=== PATIENT | male | born 2000 | race American Indian/Alaskan Native ===

== ENCOUNTER 2022-02-26 16:05 | Inpatient (IN) | payer MEDICAID ==
[2022-02-26] MEDS ORDERED: SODIUM CHLORIDE 0.9% 1000 ML 1,000 ML IV ONE ×2 (17:28→18:35)
--- NOTE | 2022-02-26 17:47 | Emergency Department Report ---
ED General Adult HPI - General Chief complaint: Nausea/Vomiting/Diarrhea Stated complaint: AMS Time Seen by Provider: 02/26/22 17:19 Source: EMS Mode of arrival: Ambulatory Limitations: No Limitations - History of Present Illness Initial comments: Patient is a 21-year-old male with reported history of schizophrenia who presents emergency department with confusion after being found wandering around. Patient is awake alert oriented x4. He does not appear to have any evidence of trauma. Patient is unable to give any additional information. - Related Data Allergies Allergy/AdvReac Type Severity Reaction Status Date / Time No Known Allergies Allergy Unverified 02/26/22 17:07 ED Review of Systems ROS: Stated complaint: AMS Other details as noted in HPI Comment: Unobtainable due to pts medical conditions ED Physical Exam - General Limitations: No Limitations General appearance: alert, in no apparent distress - Head Head exam: Present: atraumatic, normocephalic - Eye Eye exam: Present: normal appearance - ENT ENT exam: Present: mucous membranes moist - Neck Neck exam: Present: normal inspection - Respiratory Respiratory exam: Present: normal lung sounds bilaterally. Absent: respiratory distress - Cardiovascular Cardiovascular Exam: Present: regular rate, normal rhythm. Absent: systolic murmur, diastolic murmur, rubs, gallop - GI/Abdominal GI/Abdominal exam: Present: soft, normal bowel sounds - Rectal Rectal exam: Present: deferred - Extremities Exam Extremities exam: Present: normal inspection - Back Exam Back exam: Present: normal inspection - Neurological Exam Neurological exam: Present: alert, oriented X3, CN II-XII intact, normal gait. Absent: motor sensory deficit - Psychiatric Psychiatric exam: Present: flat affect. Absent: agitated, anxious, manic, homicidal ideation, suicidal ideation - Skin Skin exam: Present: warm, dry, intact, normal color. Absent: rash ED Course Vital Signs 02/26/22 02/26/22 02/26/22 16:43 18:31 21:17 Temperature 98.5 F Pulse Rate 83 79 Respiratory 18 18 15 Rate Blood Pressure 106/76 110/70 [Left] O2 Sat by Pulse 99 99 100 Oximetry - Reevaluation(s) Reevaluation #1: 02/26/22 19:28 Patient is reacting to external stimuli. He is talking to himself. He is attempted to remove his IV. I informed the nurse that we need to call security and I have ordered chemical sedation for the patient to facilitate the rest of his work-up. Reevaluation #2: 02/26/22 22:56 Patient was admitted to the hospitalist on a 1013 given evidence of rhabdo. Patient has been calm since receiving sedation. His CK appears to be trending Down but is still elevated above 2000. ED Medical Decision Making - Lab Data Result diagrams: 02/26/22 17:28 02/26/22 17:28 - Medical Decision Making Patient is a 21-year-old male presenting to the emergency department after being found wandering. Patient appears disheveled he is awake alert and oriented with no sign of trauma but cannot give additional information as to why he is here. There is reportedly history of schizophrenia. Plan for CT head, basic labs, IV fluids and reassessment. Critical care attestation.: If time is entered above; I have spent that time in minutes in the direct care of this critically ill patient, excluding procedure time. ED Disposition Clinical Impression: Rhabdomyolysis, Schizophrenia Disposition: ADMITTED INPATIENT Is pt being admited?: Yes Does the pt Need Aspirin: No Condition: Stable Referrals: PRIMARY CARE, [Primary Care Provider] - 3-5 Days
[2022-02-26 17:59] LABS: Basophils % (Auto) 0.4 % (0.0-1.8); Eosinophils # (Auto) 0.3 K/mm3 (0.0-0.4); Eosinophils % (Auto) 3.4 % (0.0-4.3); Hematocrit 38.1 % (35.5-45.6); Lymphocytes # (Auto) 2.2 K/mm3 (1.2-5.4); Lymphocytes % (Auto) 21.7 % (13.4-35.0); Mean Corpuscular HGB Conc 34 % (32-34); Mean Corpuscular Volume 92 fl (84-94); Monocytes # (Auto) 1.1 K/mm3 (0.0-0.8); Monocytes % (Auto) 10.8 % (0.0-7.3); Platelet Count 284 K/mm3 (140-440); Red Blood Count 4.15 M/mm3 (3.65-5.03); Red Cell Distribution Width 13.2 % (13.2-15.2)
[2022-02-26 18:03] LABS: Alanine Aminotransferase 92 units/L (7-56); Albumin 4.1 g/dL (3.9-5); BUN/Creatinine Ratio 21; Blood Urea Nitrogen 19 mg/dL (9-20); Calcium 8.9 mg/dL (8.4-10.2); Hemolysis Index 12
[2022-02-26] MEDS ORDERED: HALOPERIDOL LACTATE 5 MG/1 ML INJ IM ONE (19:27)
[2022-02-26] MEDS ORDERED: diphenhydrAMINE 50 MG/ML VIAL IV ONE (19:27)
[2022-02-26] MEDS ORDERED: MIDAZOLAM 2 MG/2 ML INJ IV ONE (19:27)
--- NOTE | 2022-02-26 20:31 | Cat Scan Report ---
CT head/brain wo con INDICATION / CLINICAL INFORMATION: 21 years Male; altered mental status. TECHNIQUE: Routine CT head without contrast. All CT scans at this location are performed using CT dos e reduction for ALARA by means of automated exposure control. COMPARISON: None. FINDINGS: BRAIN / INTRACRANIAL CONTENTS: No acute hemorrhage, mass effect, midline shift, hydrocephalus, or acu te, large territorial infarct. No signs of significant atrophy or chronic infarct. No significant whi te matter abnormality seen. CRANIOCERVICAL JUNCTION: No significant abnormality. ORBITS: No significant abnormality of visualized orbits. SINUSES / MASTOIDS: Mild to moderate mucosal thickening in the ethmoids. Small mucous extension cysts /polyps seen in the right sphenoid sinus and right maxillary antrum. Minimal mucosal thickening in th e mastoids. ADDITIONAL FINDINGS: None. IMPRESSION: 1. No focal mass, hemorrhage, hydrocephalus, or acute, large territorial infarct. Signer Name: Fausto Lee MD, III Signed: 02/26/2022 8:27 PM Workstation Name: [id number]
[2022-02-26] MEDS ORDERED: ACETAMINOPHEN 325 MG TAB PO PRN (22:16)
[2022-02-26] MEDS ORDERED: ONDANSETRON 4 MG/2 ML INJ IV PRN (22:16)
[2022-02-26] MEDS ORDERED: MAGNESIUM HYDROXIDE (MOM) ORAL LIQD UDC PO PRN (22:16)
[2022-02-26] MEDS ORDERED: MORPHINE 4 MG/1 ML INJ IV PRN (22:16)
--- NOTE | 2022-02-26 22:22 | History and Physical Report ---
History of Present Illness Date of examination: 02/26/22 Date of admission: 02/26/2022 Chief complaint: Altered Mental Status History of present illness: 21-year-old -[place] male with known history of schizophrenia presenting to the emergency room today with changes in mental status. Currently sedated. Said to have been found wandering around was brought into the emergency room for further evaluation. Upon arrival in the emergency room he became agitated and was given some sedation. The history was gotten from the ER staff Work-up in the emergency room today, labs are significant for elevated creatinine kinase of 2654. Liver enzymes were also slightly elevated. CT scan of the head shows no focal mass, hemorrhage, hydrocephalus or acute large territorial infarct. Patient has been started on IV fluid normal saline Past History Past Medical History: other (Schizophrenia) Past Surgical History: No surgical history Social history: no significant social history Family history: no significant family history Medications and Allergies Allergies Allergy/AdvReac Type Severity Reaction Status Date / Time No Known Allergies Allergy Unverified 02/26/22 17:07 Review of Systems ROS unobtainable: due to mental status Exam - Constitutional Vitals: Temp Pulse Resp BP Pulse Ox 98.5 F 79 15 110/70 100 02/26/22 16:43 02/26/22 21:17 02/26/22 21:17 02/26/22 21:17 02/26/22 21:17 General appearance: Present: no acute distress, well-nourished - EENT Eyes: Present: PERRL, EOM intact. Absent: scleral icterus ENT: hearing intact, clear oral mucosa, dentition normal - Neck Neck: Present: supple, normal ROM - Respiratory Respiratory effort: normal Respiratory: bilateral: CTA - Cardiovascular Rhythm: regular Heart Sounds: Present: S1 & S2. Absent: gallop, systolic murmur, diastolic murmur, rub, click - Extremities Extremities: no ischemia, pulses intact, pulses symmetrical, No edema, normal temperature, normal color, Full ROM Peripheral Pulses: within normal limits - Abdominal General gastrointestinal: Present: soft, non-tender, non-distended, normal bowel sounds. Absent: mass - Integumentary Integumentary: Present: clear, warm, dry, normal turgor. Absent: rash - Musculoskeletal Musculoskeletal: strength equal bilaterally - Psychiatric Psychiatric: cooperative - Neurologic Neurologic: CNII-XII intact, no focal deficits, moves all extremities Results - Labs CBC & Chem 7: 02/27/22 04:12 02/27/22 04:12 Labs: Abnormal lab results 02/26/22 02/26/22 02/26/22 Range/Units 17:28 17:28 17:28 [place] % (Auto) 10.8 H (0.0-7.3) % [place] # (Auto) 1.1 H (0.0-0.8) K/mm3 Sodium 136 L (137-145) mmol/L AST 79 H (5-40) units/L ALT 92 H (7-56) units/L Total Creatine Kinase (55-170) units/L Salicylates < 0.3 L (2.8-20.0) mg/dL Acetaminophen (10.0-30.0) ug/mL 02/26/22 02/26/22 02/26/22 Range/Units 17:31 17:31 17:31 [place] % (Auto) (0.0-7.3) % [place] # (Auto) (0.0-0.8) K/mm3 Sodium (137-145) mmol/L AST (5-40) units/L ALT (7-56) units/L Total Creatine Kinase 2654 H (55-170) units/L Salicylates < 0.3 L (2.8-20.0) mg/dL Acetaminophen 5.0 L (10.0-30.0) ug/mL 02/26/22 Range/Units 20:22 [place] % (Auto) (0.0-7.3) % [place] # (Auto) (0.0-0.8) K/mm3 Sodium (137-145) mmol/L AST (5-40) units/L ALT (7-56) units/L Total Creatine Kinase 2230 H (55-170) units/L Salicylates (2.8-20.0) mg/dL Acetaminophen (10.0-30.0) ug/mL Assessment and Plan - Patient Problems (1) Rhabdomyolysis Current Visit: Yes Status: Acute (2) Schizophrenia Current Visit: Yes Status: Acute (3) DVT prophylaxis Current Visit: Yes Status: Acute (4) Full code status Current Visit: Yes Status: Acute
[2022-02-27 04:32] LABS: Basophils % (Auto) 0.3 % (0.0-1.8); Eosinophils # (Auto) 0.4 K/mm3 (0.0-0.4); Eosinophils % (Auto) 4.8 % (0.0-4.3); Hemoglobin 13.4 gm/dl (11.8-15.2); Lymphocytes # (Auto) 2.1 K/mm3 (1.2-5.4); Lymphocytes % (Auto) 25.8 % (13.4-35.0); Mean Corpuscular HGB Conc 33 % (32-34); Mean Corpuscular Volume 91 fl (84-94); Monocytes # (Auto) 0.9 K/mm3 (0.0-0.8); Monocytes % (Auto) 11.1 % (0.0-7.3); Platelet Count 281 K/mm3 (140-440); Red Blood Count 4.42 M/mm3 (3.65-5.03); Red Cell Distribution Width 13.3 % (13.2-15.2)
[2022-02-27 04:51] LABS: BUN/Creatinine Ratio 16; Blood Urea Nitrogen 14 mg/dL (9-20); Calcium 8.5 mg/dL (8.4-10.2); Hemolysis Index 10
[2022-02-27] MEDS: HEPARIN 5,000 UNIT/1 ML VIAL SUB-Q SCH ×3 (10:40→21:41)
--- NOTE | 2022-02-27 12:14 | Consultation ---
History of Present Illness - Reason for Consult Consult date: 02/27/22 Reason for consult: MHE Requesting physician: DAVE CROWDER - Chief Complaint Chief complaint: "I got to get out of here" - History of Present Psychiatric Illness HPI: The patient is a 21yo Male. Patient seen today and states he was admitted because he fell and states " i got to get out of here" Patient was seen talking to himself. atient denies any SI/HI at this time. Patient has hx of schizophrenia. PAST PSYCHIATRIC HISTORY: Diagnoses: schizophrenia Suicide attempts or Self-harm behavior: No Prior psychiatric hospitalizations: Yes Substance Abuse history: Unable to assess Previous psychiatric medications tried: Outpatient treatment: PAST MEDICAL HISTORY: Family Psychiatric History: None reported or documented SOCIAL HISTORY Marital Status: Single Living Arrangements: Homeless Employment Status: Access to guns/weapons: No Education: History of Abuse: unable to asses Legal History: Denies REVIEW OF SYSTEMS ROS cannot be reliably obtained from the patient due to his confusion ROS: Constitutional: Negative for weight loss ENT: Negative for stridor Respiratory: Negative for cough or hemoptysis All other systems reviewed and are negative MENTAL STATUS General Appearance and Behavior: age appropriate, cooperative with questioning and polite Cooperation: Cooperative Psychomotor Behavior: within normal limits Mood: OK Affect and affective range: Congruent with stated mood Thought Process: Fluent Thought Content: Within reality Speech: Normal volume and Regular rate and rhythm Intellectual Functioning Average Suicidal Ideation: Denies SI Homicidal Ideation: Denies HI Impulse Control: intact Insight and Judgment: poor Memory: poor Attention: Normal Orientation: alert Treatment Plan Patient will be admitted for inpatient psychiatric evaluation, medication adjustment and close monitoring The patient's behavior, mood, sleep and appetite will be closely monitored. Patient will be enrolled in individual and group therapeutic sessions and encouraged to attend. Patient will be provided with a safe and structured environment. Patient's physical health needs will be addressed by the Hospitalist. Hospitalist Consulted Labs including CBC, CMP, Lipid profile and Hemoglobin A1C ordered Social Assessment will be completed and the Manager Molecular will work with patient and family to ensure a suitable and safe disposition Medication adjustment will be made as clinically indicated Usual Wellness Congregational/Preservation: - Start Trazodone 50 mg po QHS & 50 mg po QHS PRN between 10 PM & 2 AM for insomnia Medications and Allergies Allergies Allergy/AdvReac Type Severity Reaction Status Date / Time No Known Allergies Allergy Unverified 02/26/22 17:07 Home Medications Medication Instructions Recorded Confirmed Last Taken Type No Known Home Medications [No 02/27/22 02/27/22 Unknown History Reported Home Medications] Active Meds: Active Medications Acetaminophen (Acetaminophen 325 Mg Tab) 650 mg PO Q4H PRN PRN Reason: Pain MILD(1-3)/Fever >100.5/MI Heparin Sodium (Porcine) (Heparin 5,000 Unit/1 Ml Vial) 5,000 unit SUB-Q Q8HR [facility] Last Admin: 02/27/22 10:40 Dose: Not Given Sodium Chloride (Nacl 0.9% 1000 Ml) 1,000 mls @ 150 mls/hr IV DIRECT LUCILA Magnesium Hydroxide (Magnesium Hydroxide (Mom) Oral Liqd Udc) 30 ml PO Q4H PRN PRN Reason: Constipation Morphine Sulfate (Morphine 2 Mg/1 Ml Inj) 2 mg IV Q4H PRN PRN Reason: Pain, Moderate (4-6) Morphine Sulfate (Morphine 4 Mg/1 Ml Inj) 4 mg IV Q4H PRN PRN Reason: Pain , Severe (7-10) Olanzapine (Olanzapine 5 Mg Tab) 5 mg PO BID [facility] Ondansetron HCl (Ondansetron 4 Mg/2 Ml Inj) 4 mg IV Q8H PRN PRN Reason: Nausea And Vomiting Sodium Chloride (Sodium Chloride 0.9% 10 Ml Flush Syringe) 10 ml IV BID [facility] Last Admin: 02/27/22 09:57 Dose: 10 ml Sodium Chloride (Sodium Chloride 0.9% 10 Ml Flush Syringe) 10 ml IV PRN PRN PRN Reason: LINE FLUSH Ziprasidone (Ziprasidone Mesylate 20 Mg Vial) 20 mg IM Q4H PRN PRN Reason: Agitation Mental Status Exam - Vital signs Last Vital Signs Temp 98.5 F 02/26/22 16:43 Pulse 76 02/27/22 00:42 Resp 12 02/27/22 00:42 BP 116/66 02/27/22 00:42 Pulse Ox 98 02/27/22 10:56 Results Result Diagrams: 02/27/22 04:12 02/27/22 04:12 Abnormal lab results 02/26/22 02/26/22 02/26/22 Range/Units 17:28 17:28 17:28 [place] % (Auto) 10.8 H (0.0-7.3) % [place] % (Auto) (0.0-4.3) % [place] # (Auto) 1.1 H (0.0-0.8) K/mm3 Sodium 136 L (137-145) mmol/L AST 79 H (5-40) units/L ALT 92 H (7-56) units/L Total Creatine Kinase (55-170) units/L Salicylates < 0.3 L (2.8-20.0) mg/dL Acetaminophen (10.0-30.0) ug/mL 02/26/22 02/26/22 02/26/22 Range/Units 17:31 17:31 17:31 [place] % (Auto) (0.0-7.3) % [place] % (Auto) (0.0-4.3) % [place] # (Auto) (0.0-0.8) K/mm3 Sodium (137-145) mmol/L AST (5-40) units/L ALT (7-56) units/L Total Creatine Kinase 2654 H (55-170) units/L Salicylates < 0.3 L (2.8-20.0) mg/dL Acetaminophen 5.0 L (10.0-30.0) ug/mL 02/26/22 02/27/22 02/27/22 Range/Units 20:22 04:12 04:58 [place] % (Auto) 11.1 H (0.0-7.3) % [place] % (Auto) 4.8 H (0.0-4.3) % [place] # (Auto) 0.9 H (0.0-0.8) K/mm3 Sodium (137-145) mmol/L AST (5-40) units/L ALT (7-56) units/L Total Creatine Kinase 2230 H 1925 H (55-170) units/L Salicylates (2.8-20.0) mg/dL Acetaminophen (10.0-30.0) ug/mL All other labs normal. Assessment and Plan - Psychiatric problem (1) Psychosis Current Visit: Yes Status: Acute (2) Schizophrenia Current Visit: Yes Status: Acute
[2022-02-27] MEDS: SODIUM CHLORIDE 0.9% 1000 ML 1,000 ML IV SCH ×2 (12:18→21:38)
[2022-02-27 13:04] LABS: Amphetamine Screen,Urine Negative; Cannabinoid Screen,Urine Negative; Cocaine Screen,Urine Negative; Methadone Screen,Urine Negative; Opiate Screen,Urine Negative
[2022-02-27 13:17] LABS: Benzodiazepines Screen,Urine Positive
[2022-02-27] MEDS ORDERED: LORazepam 2 MG/ML VIAL IM ONE (13:46)
[2022-02-27] MEDS ORDERED: HALOPERIDOL LACTATE 5 MG/1 ML INJ IM ONE (13:46)
--- NOTE | 2022-02-27 13:53 | Progress Note ---
Assessment and Plan (1) Rhabdomyolysis Current Visit: Yes Status: Acute (2) Schizophrenia Current Visit: Yes Status: Acute (3) DVT prophylaxis Current Visit: Yes Status: Acute (4) Full code status Current Visit: Yes Status: Acute -- Follow CPK level, encourage plenty of fluid intake, sitting at the bedside. Psych following, need inpatient care for psychiatric evaluation Subjective Date of service: 02/27/22 Interval history: Patient seen and examined. Medical records and medication list reviewed. No acute event overnight noted by the RN. Patient denies any chest pain or difficulty breathing. Patient is tolerating diet. Sitter at the bedside Patient is very talkative Objective - Exam Narrative Exam: GENERAL: well-developed and well-nourished AAM lying on bed appeared to be in no discomfort. Sitter at the bedside HEENT: Normocephalic. Atraumatic. No conjunctival congestion or icterus. Patient has moist mucous membranes. NECK: Supple. Trachea midline. CHEST/LUNGS: Clear to auscultated bilaterally, breathing nonlabored. No wheezes crackles or rhonchi. HEART/CARDIOVASCULAR: Regular in rate and rhythm. S1 and S2 positive. ABDOMEN: Abdomen is soft, nontender. Patient has normal bowel sounds. SKIN: There is no rash. Warm and dry. NEURO: No focal motor deficit. Follows command. MUSCULOSKELETAL: No joint effusion or tenderness. EXTRIMITY: No edema, no cyanosis or clubbing. PSYCH: Cooperative with disorganized thoughts. Intermittently agitated - Constitutional Vitals: Vital Signs - 12hr 02/27/22 02/27/22 10:56 11:57 Temperature 97.9 F Pulse Rate 68 Respiratory 20 Rate Blood Pressure 100/44 O2 Sat by Pulse 98 99 Oximetry - Labs CBC & Chem 7: 02/27/22 04:12 02/27/22 04:12 Labs: Abnormal lab results 02/26/22 02/26/22 02/26/22 Range/Units 17:28 17:28 17:28 [place] % (Auto) 10.8 H (0.0-7.3) % [place] % (Auto) (0.0-4.3) % [place] # (Auto) 1.1 H (0.0-0.8) K/mm3 Sodium 136 L (137-145) mmol/L AST 79 H (5-40) units/L ALT 92 H (7-56) units/L Total Creatine Kinase (55-170) units/L Salicylates < 0.3 L (2.8-20.0) mg/dL Acetaminophen (10.0-30.0) ug/mL 02/26/22 02/26/22 02/26/22 Range/Units 17:31 17:31 17:31 [place] % (Auto) (0.0-7.3) % [place] % (Auto) (0.0-4.3) % [place] # (Auto) (0.0-0.8) K/mm3 Sodium (137-145) mmol/L AST (5-40) units/L ALT (7-56) units/L Total Creatine Kinase 2654 H (55-170) units/L Salicylates < 0.3 L (2.8-20.0) mg/dL Acetaminophen 5.0 L (10.0-30.0) ug/mL 02/26/22 02/27/22 02/27/22 Range/Units 20:22 04:12 04:58 [place] % (Auto) 11.1 H (0.0-7.3) % [place] % (Auto) 4.8 H (0.0-4.3) % [place] # (Auto) 0.9 H (0.0-0.8) K/mm3 Sodium (137-145) mmol/L AST (5-40) units/L ALT (7-56) units/L Total Creatine Kinase 2230 H 1925 H (55-170) units/L Salicylates (2.8-20.0) mg/dL Acetaminophen (10.0-30.0) ug/mL
[2022-02-27 15:23] LABS: Mucus,Urine FEW /HPF
[2022-02-27 15:50] LABS: Bilirubin,Urine Negative (Negative); Blood,Urine Negative (Negative); Color,Urine Yellow (Yellow); PH,Urine 6.5 (5.0-7.0); Protein,Urine <15 mg/dL mg/dL (Negative); Urobilinogen,Urine < 2.0 mg/dL (<2.0)
[2022-02-27] MEDS: LORazepam 2 MG/ML VIAL IM PRN (21:42)
[2022-02-28] MEDS: HEPARIN 5,000 UNIT/1 ML VIAL SUB-Q SCH ×3 (06:22→22:02)
[2022-02-28] MEDS: LORazepam 2 MG/ML VIAL IM PRN ×2 (08:48→18:10)
--- NOTE | 2022-02-28 16:31 | Progress Note ---
Assessment and Plan (1) Rhabdomyolysis Current Visit: Yes Status: Acute (2) Schizophrenia Current Visit: Yes Status: Acute (3) DVT prophylaxis Current Visit: Yes Status: Acute (4) Full code status Current Visit: Yes Status: Acute -- CPK remains elevated, cont to follow, iv fluid. patient refusing meds per documentation. need inpt care. with disorganized thoughts, very talkative. cont supportive care. sitter at bedside. Subjective Date of service: 02/28/22 Interval history: Patient seen and examined. Medical records and medication list reviewed. No acute event overnight noted by the RN. Patient denies any chest pain or difficulty breathing. Patient is tolerating diet. Sitter at the bedside Patient is very talkative Objective - Exam Narrative Exam: GENERAL: well-developed and well-nourished AAM lying on bed appeared to be in no discomfort. Sitter at the bedside HEENT: Normocephalic. Atraumatic. No conjunctival congestion or icterus. Patient has moist mucous membranes. NECK: Supple. Trachea midline. CHEST/LUNGS: Clear to auscultated bilaterally, breathing nonlabored. No wheezes crackles or rhonchi. HEART/CARDIOVASCULAR: Regular in rate and rhythm. S1 and S2 positive. ABDOMEN: Abdomen is soft, nontender. Patient has normal bowel sounds. SKIN: There is no rash. Warm and dry. NEURO: No focal motor deficit. Follows command. MUSCULOSKELETAL: No joint effusion or tenderness. EXTRIMITY: No edema, no cyanosis or clubbing. PSYCH: Cooperative with disorganized thoughts. Intermittently agitated - Constitutional Vitals: Vital Signs - 12hr 02/28/22 02/28/22 08:50 11:07 Temperature 98.6 F Respiratory 20 Rate Blood Pressure 110/55 O2 Sat by Pulse 97 Oximetry - Labs CBC & Chem 7: 02/27/22 04:12 02/27/22 04:12 Labs: Abnormal lab results 02/28/22 Range/Units 05:59 Total Creatine Kinase 2283 H (55-170) units/L
[2022-02-28] MEDS: HALOPERIDOL LACTATE 5 MG/1 ML INJ IM PRN (18:08)
--- NOTE | 2022-02-28 19:55 | Progress Note ---
Subjective - Reason for Consult Reason for consult: Schizophrenia - Chief Complaint Chief complaint: "I got to get out of here" SUBJECTIVE DATE SEEN: 02/28/2022 Patient seen toda. Patient lying on his bed eating. Patient states that he is feeling okay today, but refusing to take medications because he says the make him "crap a lot". Patient also took out his IV. Patient denies SI/HI at this time and states that he eats and sleeps well ad would like to leave.No changes to plan of care at this time. Mental Status Exam - Vital signs Last Vital Signs Temp 98.7 F 02/28/22 18:30 Pulse 63 02/28/22 18:30 Resp 20 02/28/22 18:30 BP 116/62 02/28/22 18:30 Pulse Ox 98 02/28/22 18:30 Assessment and Plan - Patient Problems (1) Psychosis Current Visit: Yes Status: Acute (2) Schizophrenia Current Visit: Yes Status: Acute
[2022-03-01] MEDS: LORazepam 2 MG/ML VIAL IM PRN ×3 (03:33→21:30)
[2022-03-01] MEDS: HALOPERIDOL LACTATE 5 MG/1 ML INJ IM PRN ×3 (03:33→21:30)
[2022-03-01] MEDS: HEPARIN 5,000 UNIT/1 ML VIAL SUB-Q SCH ×3 (06:40→21:26)
--- NOTE | 2022-03-01 12:57 | Progress Note ---
Assessment and Plan (1) Rhabdomyolysis Current Visit: Yes Status: Acute (2) Schizophrenia Current Visit: Yes Status: Acute (3) DVT prophylaxis Current Visit: Yes Status: Acute (4) Full code status Current Visit: Yes Status: Acute -- Patient requiring inpatient psych evaluation and management. Sitter at the bedside. Follow CPK level and wait for psych clearance for discharge. Subjective Date of service: 03/01/22 Interval history: Patient seen and examined. Medical records and medication list reviewed. No acute event overnight noted by the RN. Patient denies any chest pain or difficulty breathing. Patient is tolerating diet. Sitter at the bedside Patient is very talkative Objective - Exam Narrative Exam: GENERAL: well-developed and well-nourished AAM lying on bed appeared to be in no discomfort. Sitter at the bedside HEENT: Normocephalic. Atraumatic. No conjunctival congestion or icterus. Patient has moist mucous membranes. NECK: Supple. Trachea midline. CHEST/LUNGS: Clear to auscultated bilaterally, breathing nonlabored. No wheezes crackles or rhonchi. HEART/CARDIOVASCULAR: Regular in rate and rhythm. S1 and S2 positive. ABDOMEN: Abdomen is soft, nontender. Patient has normal bowel sounds. SKIN: There is no rash. Warm and dry. NEURO: No focal motor deficit. Follows command. MUSCULOSKELETAL: No joint effusion or tenderness. EXTRIMITY: No edema, no cyanosis or clubbing. PSYCH: Cooperative with disorganized thoughts. Intermittently agitated - Constitutional Vitals: Vital Signs - 12hr 03/01/22 12:09 Temperature 97.6 F Pulse Rate 88 Respiratory 20 Rate Blood Pressure 102/56 O2 Sat by Pulse 99 Oximetry - Labs CBC & Chem 7: 02/27/22 04:12 02/27/22 04:12
[2022-03-02] MEDS: SODIUM CHLORIDE 0.9% 1000 ML 1,000 ML IV SCH ×3 (02:43→17:26)
[2022-03-02] MEDS: HEPARIN 5,000 UNIT/1 ML VIAL SUB-Q SCH ×3 (05:20→21:43)
[2022-03-02] MEDS: HALOPERIDOL LACTATE 5 MG/1 ML INJ IM PRN ×2 (07:55→17:19)
--- NOTE | 2022-03-02 13:50 | Progress Note ---
Assessment and Plan 21-year-old -[place] male with known history of schizophrenia presenting to the emergency room with changes in mental status. Upon arrival in the emergency room he became agitated and was given some sedation. Work-up in the emergency room, labs are significant for elevated creatinine kinase of 2654. Liver enzymes were also slightly elevated. CT scan of the head shows no focal mass, hemorrhage, hydrocephalus or acute large territorial infarct. Patient has been started on IV fluid normal saline and admitted for further mx. 02/27: -- Follow CPK level, encourage plenty of fluid intake, sitting at the bedside. Psych following, need inpatient care for psychiatric evaluation. 02/28: CPK remains elevated, cont to follow, iv fluid. patient refusing meds per documentation. need inpt care. with disorganized thoughts, very talkative. cont supportive care. sitter at bedside. 03/01: Patient requiring inpatient psych evaluation and management. Sitter at the bedside. Follow CPK level and wait for psych clearance for discharge. 03/02: CPK remians elevated, pt was agitated this am. psych following. follow CPK and LFT. A/p (1) Rhabdomyolysis with elevated LFT Current Visit: Yes Status: Acute iv fluid, monitor CPK and LFT (2) Schizophrenia with psychosis Current Visit: Yes Status: Acute psych following (3) DVT prophylaxis Current Visit: Yes Status: Acute SCD, ambulatory (4) Full code status Current Visit: Yes Status: Acute Subjective Date of service: 03/02/22 Interval history: Patient seen and examined. Medical records and medication list reviewed. No acute event overnight noted by the RN. Patient denies any chest pain or difficulty breathing. Patient is tolerating diet. Sitter at the bedside Patient is very talkative Objective - Exam Narrative Exam: GENERAL: well-developed and well-nourished AAM lying on bed appeared to be in no discomfort. Sitter at the bedside HEENT: Normocephalic. Atraumatic. No conjunctival congestion or icterus. Patient has moist mucous membranes. NECK: Supple. Trachea midline. CHEST/LUNGS: Clear to auscultated bilaterally, breathing nonlabored. No wheezes crackles or rhonchi. HEART/CARDIOVASCULAR: Regular in rate and rhythm. S1 and S2 positive. ABDOMEN: Abdomen is soft, nontender. Patient has normal bowel sounds. SKIN: There is no rash. Warm and dry. NEURO: No focal motor deficit. Follows command. MUSCULOSKELETAL: No joint effusion or tenderness. EXTRIMITY: No edema, no cyanosis or clubbing. PSYCH: Cooperative with disorganized thoughts. Intermittently agitated - Constitutional Vitals: Vital Signs - 12hr 03/02/22 03/02/22 03/02/22 02:29 02:30 04:51 Temperature 97.7 F 98.6 F Pulse Rate 56 L 52 L 86 Respiratory 16 14 20 Rate Blood Pressure 137/83 93/40 Blood Pressure 137/83 [Left] O2 Sat by Pulse 99 100 99 Oximetry 03/02/22 08:00 Temperature Pulse Rate Respiratory 16 Rate Blood Pressure Blood Pressure [Left] O2 Sat by Pulse 96 Oximetry - Labs CBC & Chem 7: 02/27/22 04:12 02/27/22 04:12 Labs: Abnormal lab results 03/02/22 03/02/22 Range/Units 02:28 09:39 POC Glucose 146 H (70-105) mg/dL Total Creatine Kinase 3625 H (55-170) units/L
--- NOTE | 2022-03-02 14:53 | Progress Note ---
Subjective - Reason for Consult Reason for consult: Schizophrenia - Chief Complaint Chief complaint: "I got to get out of here" SUBJECTIVE DATE SEEN: 03/02/2022 Patient seen today in his room with the sitter. Patient standing and talking with sitter. Patient observed to be in a good mood. Patient denies any SI/HI at this time. Nursing staff states that he is not disruptive or aggressive, but can get agitated and anxious at times. Patient has been compliant with his medications and also gets prn's when needed. Patients thoughts are disorganized. Patient states that he is eating and sleeping good. DATE SEEN: 02/28/2022 Patient seen toda. Patient lying on his bed eating. Patient states that he is feeling okay today, but refusing to take medications because he says the make him "crap a lot". Patient also took out his IV. Patient denies SI/HI at this time and states that he eats and sleeps well ad would like to leave.No changes to plan of care at this time. Mental Status Exam - Vital signs Last Vital Signs Temp 98.6 F 03/02/22 04:51 Pulse 86 03/02/22 04:51 Resp 16 03/02/22 08:00 BP 93/40 03/02/22 04:51 Pulse Ox 96 03/02/22 08:00 Assessment and Plan - Patient Problems (1) Psychosis Current Visit: Yes Status: Acute (2) Schizophrenia Current Visit: Yes Status: Acute
[2022-03-03] MEDS: HEPARIN 5,000 UNIT/1 ML VIAL SUB-Q SCH ×3 (06:04→22:19)
[2022-03-03] MEDS: HALOPERIDOL LACTATE 5 MG/1 ML INJ IM PRN (06:04)
[2022-03-03] MEDS: SODIUM CHLORIDE 0.9% 1000 ML 1,000 ML IV SCH ×3 (06:07→23:43)
[2022-03-03 08:47] LABS: Alanine Aminotransferase 279 units/L (7-56); Albumin 4.1 g/dL (3.9-5); Blood Urea Nitrogen 12 mg/dL (9-20); Hemolysis Index 5
[2022-03-03 09:06] LABS: BUN/Creatinine Ratio 17
--- NOTE | 2022-03-03 10:58 | Progress Note ---
Assessment and Plan Assessment and plan: A/p --Rhabdomyolysis worsening creatinine kinase, CK levels 3700 today Aggressive IV hydration, 250 mL of normal saline fluid bolus in addition to IV fluids Input output monitoring, plenty of oral fluids -- Worsening LFT; Due to worsening CK levels Vigorous IV hydration monitor LFTs, renal function And CK levels -- Schizophrenia with psychosis psych following . Continue current management Patient 1013 status per psych --DVT prophylaxis SCD, ambulatory -- Full code status We will closely monitor the patient and adjust the management as needed Plan of care reviewed with the patient and his nurse 21-year-old -[place] male with known history of schizophrenia presenting to the emergency room with changes in mental status. Upon arrival in the emergency room he became agitated and was given some sedation. Work-up in the emergency room, labs are significant for elevated creatinine kinase of 2654. Liver enzymes were also slightly elevated. CT scan of the head shows no focal mass, hemorrhage, hydrocephalus or acute large territorial infarct. Patient has been started on IV fluid normal saline and admitted for further mx. 02/27: -- Follow CPK level, encourage plenty of fluid intake, sitting at the bedside. Psych following, need inpatient care for psychiatric evaluation. 02/28: CPK remains elevated, cont to follow, iv fluid. patient refusing meds per documentation. need inpt care. with disorganized thoughts, very talkative. cont supportive care. sitter at bedside. 03/01: Patient requiring inpatient psych evaluation and management. Sitter at the bedside. Follow CPK level and wait for psych clearance for discharge. 03/02: CPK remians elevated, pt was agitated this am. psych following. follow CPK and LFT. 03/03; worsening CK and LFTs, increase IV fluids To 50 mL normal saline bolus in addition to IV fluids Resolved renal function History Interval history: I have seen and examined the patient at the bedside this morning Patient's chart and medications reviewed Patient with history of schizophrenia admitted with suicidal thoughts and ideation Evaluated by psych, 1013 status has worsening rhabdomyolysis CK today is 3700 Patient is anxious to go home. No new complaints Vital signs noted Hospitalist Physical - Constitutional Vitals: Temp Pulse Resp BP Pulse Ox 97.6 F 68 18 126/57 99 03/03/22 05:17 03/03/22 05:17 03/03/22 05:17 03/03/22 05:17 03/03/22 05:17 General appearance: Present: no acute distress, well-nourished - EENT Eyes: Present: PERRL, EOM intact - Neck Neck: Present: supple, normal ROM - Respiratory Respiratory effort: normal Respiratory: bilateral: diminished, negative: rales, rhonchi, wheezing - Cardiovascular Rhythm: regular Heart Sounds: Present: S1 & S2 - Extremities Extremities: no ischemia, No edema - Abdominal General gastrointestinal: soft, non-tender, non-distended, normal bowel sounds - Integumentary Integumentary: Present: clear, warm - Psychiatric Psychiatric: appropriate mood/affect, cooperative - Neurologic Neurologic: CNII-XII intact, moves all extremities Results - Labs CBC & Chem 7: 02/27/22 04:12 03/04/22 05:42 Labs: Laboratory Last Values WBC 8.3 K/mm3 (4.5-11.0) 02/27/22 04:12 RBC 4.42 M/mm3 (3.65-5.03) 02/27/22 04:12 Hgb 13.4 gm/dl (11.8-15.2) 02/27/22 04:12 Hct 40.0 % (35.5-45.6) 02/27/22 04:12 MCV 91 fl (84-94) 02/27/22 04:12 MCH 30 pg (28-32) 02/27/22 04:12 MCHC 33 % (32-34) 02/27/22 04:12 RDW 13.3 % (13.2-15.2) 02/27/22 04:12 Plt Count 281 K/mm3 (140-440) 02/27/22 04:12 Lymph % (Auto) 25.8 % (13.4-35.0) 02/27/22 04:12 [place] % (Auto) 11.1 % (0.0-7.3) H 02/27/22 04:12 Eos % (Auto) 4.8 % (0.0-4.3) H 02/27/22 04:12 Baso % (Auto) 0.3 % (0.0-1.8) 02/27/22 04:12 Lymph # (Auto) 2.1 K/mm3 (1.2-5.4) 02/27/22 04:12 [place] # (Auto) 0.9 K/mm3 (0.0-0.8) H 02/27/22 04:12 Eos # (Auto) 0.4 K/mm3 (0.0-0.4) 02/27/22 04:12 Baso # (Auto) 0.0 K/mm3 (0.0-0.1) 02/27/22 04:12 Seg Neutrophils % 58.0 % (40.0-70.0) 02/27/22 04:12 Seg Neutrophils # 4.8 K/mm3 (1.8-7.7) 02/27/22 04:12 Sodium 141 mmol/L (137-145) 03/03/22 07:15 Potassium 3.8 mmol/L (3.6-5.0) 03/03/22 07:15 Chloride 106.0 mmol/L (98-107) 03/03/22 07:15 Carbon Dioxide 24 mmol/L (22-30) 03/03/22 07:15 Anion Gap 15 mmol/L 03/03/22 07:15 BUN 12 mg/dL (9-20) 03/03/22 07:15 Creatinine 0.7 mg/dL (0.8-1.3) L 03/03/22 07:15 Estimated GFR > 60 ml/min 03/03/22 07:15 BUN/Creatinine Ratio 17 % 03/03/22 07:15 Glucose 83 mg/dL (75-100) 03/03/22 07:15 POC Glucose 146 mg/dL (70-105) H 03/02/22 02:28 Calcium 9.0 mg/dL (8.4-10.2) 03/03/22 07:15 Magnesium 1.70 mg/dL (1.7-2.3) 02/26/22 20:22 Total Bilirubin 0.20 mg/dL (0.1-1.2) 03/03/22 07:15 AST 361 units/L (5-40) H 03/03/22 07:15 ALT 279 units/L (7-56) H 03/03/22 07:15 Alkaline Phosphatase 67 units/L (35-129) 03/03/22 07:15 Total Creatine Kinase 3700 units/L (55-170) H 03/03/22 07:15 Total Protein 6.5 g/dL (6.3-8.2) 03/03/22 07:15 Albumin 4.1 g/dL (3.9-5) 03/03/22 07:15 Albumin/Globulin Ratio 1.7 % 03/03/22 07:15 Urine Color Yellow (Yellow) 02/26/22 12:19 Urine Turbidity Clear (Clear) 02/26/22 12:19 Urine pH 6.5 (5.0-7.0) 02/26/22 12:19 Ur Specific [place] 1.020 (1.003-1.030) 02/26/22 12:19 Urine Protein <15 mg/dl mg/dL (Negative) 02/26/22 12:19 Urine Glucose (UA) Negative mg/dL (Negative) 02/26/22 12:19 Urine Ketones Negative mg/dL (Negative) 02/26/22 12:19 Urine Blood Negative (Negative) 02/26/22 12:19 Urine Nitrite Negative (Negative) 02/26/22 12:19 Ur Reducing Substances Not Reportable 02/26/22 12:19 Urine Bilirubin Negative (Negative) 02/26/22 12:19 Urine Ictotest Not Reportable 02/26/22 12:19 Urine Urobilinogen < 2.0 mg/dL (<2.0) 02/26/22 12:19 Ur Leukocyte Esterase Negative (Negative) 02/26/22 12:19 Urine WBC (Auto) 3.0 /HPF (0.0-6.0) 02/26/22 12:19 Urine RBC (Auto) 1.0 /HPF (0.0-6.0) 02/26/22 12:19 U Epithel Cells (Auto) < 1.0 /HPF (0-13.0) 02/26/22 12:19 Urine Mucus Few /HPF 02/26/22 12:19 Nasal Screen MRSA (PCR) Negative (Negative) 02/27/22 Unknown Salicylates < 0.3 mg/dL (2.8-20.0) L 02/26/22 17:31 Urine Opiates Screen Negative 02/26/22 12:19 Urine Methadone Screen Negative 02/26/22 12:19 Acetaminophen 5.0 ug/mL (10.0-30.0) L 02/26/22 17:31 Ur Barbiturates Screen Negative 02/26/22 12:19 Ur Phencyclidine Scrn Negative 02/26/22 12:19 Ur Amphetamines Screen Negative 02/26/22 12:19 U Benzodiazepines Scrn Positive 02/26/22 12:19 Urine Cocaine Screen Negative 02/26/22 12:19 U Marijuana (THC) Screen Negative 02/26/22 12:19 Drugs of Abuse Note Disclamer 02/26/22 12:19 Plasma/Serum Alcohol < 0.01 % (0-0.07) 02/26/22 17:28 Coronavirus (PCR) Negative (Negative) 02/27/22 09:30 Vincent/IV: Voiding Method Toilet Active Medications - Current Medications Current Medications: Generic Name Dose Route Start Last Admin Trade Name Freq PRN Reason Stop Dose Admin Acetaminophen 650 mg 02/26/22 22:16 03/01/22 10:23 Acetaminophen 325 Mg Tab PO 650 mg Q4H PRN Administration Pain MILD(1-3)/Fever >100.5/MI Haloperidol Lactate 5 mg 02/27/22 13:50 03/03/22 06:04 Haloperidol Lactate 5 Mg/1 Ml Inj IM 5 mg Q6H PRN Administration Agitation Heparin Sodium (Porcine) 5,000 unit 02/27/22 06:00 03/03/22 06:04 Heparin 5,000 Unit/1 Ml Vial SUB-Q 5,000 unit Q8HR LUCILA Administration Sodium Chloride 1,000 mls @ 100 mls/hr 03/02/22 09:30 03/03/22 06:07 Nacl 0.9% 1000 Ml IV 100 mls/hr DIRECT LUCILA Administration Sodium Chloride 250 mls @ 999 mls/hr 03/03/22 10:56 Nacl 0.9% 250ml IV 03/03/22 11:11 ONCE ONE Lorazepam 2 mg 02/27/22 13:51 03/01/22 21:30 Lorazepam 2 Mg/Ml Vial IM 2 mg Q6H PRN Administration Agitation Magnesium Hydroxide 30 ml 02/26/22 22:16 03/01/22 21:30 Magnesium Hydroxide (Mom) Oral Liqd Udc PO 30 ml Q4H PRN Administration Constipation Morphine Sulfate 2 mg 02/26/22 22:16 Morphine 2 Mg/1 Ml Inj IV Q4H PRN Pain, Moderate (4-6) Morphine Sulfate 4 mg 02/26/22 22:16 Morphine 4 Mg/1 Ml Inj IV Q4H PRN Pain , Severe (7-10) Olanzapine 5 mg 02/27/22 13:00 03/03/22 10:18 Olanzapine 5 Mg Tab PO Not Given BID LUCILA Ondansetron HCl 4 mg 02/26/22 22:16 Ondansetron 4 Mg/2 Ml Inj IV Q8H PRN Nausea And Vomiting Sodium Chloride 10 ml 02/27/22 10:00 03/02/22 21:44 Sodium Chloride 0.9% 10 Ml Flush Syringe IV 10 ml BID LUCILA Administration Sodium Chloride 10 ml 02/26/22 22:16 Sodium Chloride 0.9% 10 Ml Flush Syringe IV PRN PRN LINE FLUSH Ziprasidone 20 mg 02/27/22 12:07 Ziprasidone Mesylate 20 Mg Vial IM Q4H PRN Agitation
[2022-03-03] MEDS ORDERED: SODIUM CHLORIDE 0.9% 250ML 250 ML IV ONE (12:00)
[2022-03-03] MEDS ORDERED: WATER FOR INJ Sterile (PF) 10 ML ONE (12:19)
[2022-03-03] MEDS: ZIPRASIDONE MESYLATE 20 MG VIAL IM PRN ×2 (12:32→22:18)
--- NOTE | 2022-03-03 17:38 | Progress Note ---
Subjective - Reason for Consult Consult date: 03/03/22 Reason for consult: MHE - Chief Complaint Chief complaint: "I got to get out of here" SUBJECTIVE DATE SEEN:03/03/2022 Patient seen today. Patient asleep. Nursing staff states that he got prn because of agitation. SUBJECTIVE DATE SEEN: 03/02/2022 Patient seen today in his room with the sitter. Patient standing and talking with sitter. Patient observed to be in a good mood. Patient denies any SI/HI at this time. Nursing staff states that he is not disruptive or aggressive, but can get agitated and anxious at times. Patient has been compliant with his medications and also gets prn's when needed. Patients thoughts are disorganized. Patient states that he is eating and sleeping good. DATE SEEN: 02/28/2022 Patient seen toda. Patient lying on his bed eating. Patient states that he is feeling okay today, but refusing to take medications because he says the make him "crap a lot". Patient also took out his IV. Patient denies SI/HI at this time and states that he eats and sleeps well ad would like to leave.No changes to plan of care at this time. Mental Status Exam - Vital signs Last Vital Signs Temp 97.0 F L 03/03/22 12:48 Pulse 73 03/03/22 12:48 Resp 16 03/03/22 12:48 BP 121/55 03/03/22 12:48 Pulse Ox 98 03/03/22 12:48 Assessment and Plan - Patient Problems (1) Psychosis Current Visit: Yes Status: Acute (2) Schizophrenia Current Visit: Yes Status: Acute
[2022-03-04] MEDS: LORazepam 2 MG/ML VIAL IM PRN ×2 (02:55→20:13)
[2022-03-04] MEDS: HEPARIN 5,000 UNIT/1 ML VIAL SUB-Q SCH ×3 (06:25→21:53)
[2022-03-04 06:35] LABS: Alanine Aminotransferase 252 units/L (7-56); Albumin 3.9 g/dL (3.9-5); BUN/Creatinine Ratio 13; Blood Urea Nitrogen 10 mg/dL (9-20); Calcium 9.1 mg/dL (8.4-10.2); Hemolysis Index 9
--- NOTE | 2022-03-04 09:36 | Progress Note ---
Assessment and Plan Assessment and plan: A/p --Rhabdomyolysis creatinine kinase trending down, CK levels 3700 -2338 today Aggressive IV hydration, 250 mL of normal saline fluid bolus in addition to IV fluids 1 dose of IV Lasix, preserved renal function Input output monitoring, plenty of oral fluids -- LFT trending down; Continue IV hydration, monitor liver function tests Until her fluids -- Schizophrenia with psychosis psych following . Continue current management Patient 1013 status per psych --DVT prophylaxis SCD, ambulatory -- Full code status We will closely monitor the patient and adjust the management as needed Plan of care reviewed with the patient and his nurse. Continue to monitor CK levels, LFTs, and continue monitor clinically Patient is still 1013 status, safety glass installer at the bedside Brief history and Hospital course: 21-year-old -[place] male with known history of schizophrenia presenting to the emergency room with changes in mental status. Upon arrival in the emergency room he became agitated and was given some sedation. Work-up in the emergency room, labs are significant for elevated creatinine kinase of 2654. Liver enzymes were also slightly elevated. CT scan of the head shows no focal mass, hemorrhage, hydrocephalus or acute large territorial infarct. Patient has been started on IV fluid normal saline and admitted for further mx. 02/27: -- Follow CPK level, encourage plenty of fluid intake, sitting at the bedside. Psych following, need inpatient care for psychiatric evaluation. 02/28: CPK remains elevated, cont to follow, iv fluid. patient refusing meds per documentation. need inpt care. with disorganized thoughts, very talkative. cont supportive care. sitter at bedside. 03/01: Patient requiring inpatient psych evaluation and management. Sitter at the bedside. Follow CPK level and wait for psych clearance for discharge. 03/02: CPK remians elevated, pt was agitated this am. psych following. follow CPK and LFT. 03/03; worsening CK and LFTs, increase IV fluids To 50 mL normal saline bolus in addition to IV fluids Preserved renal function 03/04 CK levels trending down today 2338, LFTs trending down 250 mL fluid bolus x1, IV Lasix x1 History Interval history: Seen and examined the patient at the bedside patient's chart and medications reviewed Patient remains on suicidal watch/1013 Anxious to go home Psych following Vital signs noted Hospitalist Physical - Constitutional Vitals: Temp Pulse Resp BP Pulse Ox 97.7 F 91 H 20 117/77 100 03/04/22 06:16 03/04/22 06:16 03/04/22 06:16 03/04/22 06:16 03/04/22 06:16 General appearance: Present: no acute distress, well-nourished - EENT Eyes: Present: PERRL, EOM intact - Neck Neck: Present: supple, normal ROM - Respiratory Respiratory effort: normal Respiratory: bilateral: diminished, negative: rales, rhonchi, wheezing - Cardiovascular Rhythm: regular Heart Sounds: Present: S1 & S2 - Extremities Extremities: no ischemia, No edema - Abdominal General gastrointestinal: soft, non-tender, non-distended, normal bowel sounds - Integumentary Integumentary: Present: clear, warm - Psychiatric Psychiatric: appropriate mood/affect, cooperative - Neurologic Neurologic: CNII-XII intact, moves all extremities Results - Labs CBC & Chem 7: 02/27/22 04:12 03/04/22 05:42 Labs: Laboratory Last Values WBC 8.3 K/mm3 (4.5-11.0) 02/27/22 04:12 RBC 4.42 M/mm3 (3.65-5.03) 02/27/22 04:12 Hgb 13.4 gm/dl (11.8-15.2) 02/27/22 04:12 Hct 40.0 % (35.5-45.6) 02/27/22 04:12 MCV 91 fl (84-94) 02/27/22 04:12 MCH 30 pg (28-32) 02/27/22 04:12 MCHC 33 % (32-34) 02/27/22 04:12 RDW 13.3 % (13.2-15.2) 02/27/22 04:12 Plt Count 281 K/mm3 (140-440) 02/27/22 04:12 Lymph % (Auto) 25.8 % (13.4-35.0) 02/27/22 04:12 [place] % (Auto) 11.1 % (0.0-7.3) H 02/27/22 04:12 Eos % (Auto) 4.8 % (0.0-4.3) H 02/27/22 04:12 Baso % (Auto) 0.3 % (0.0-1.8) 02/27/22 04:12 Lymph # (Auto) 2.1 K/mm3 (1.2-5.4) 02/27/22 04:12 [place] # (Auto) 0.9 K/mm3 (0.0-0.8) H 02/27/22 04:12 Eos # (Auto) 0.4 K/mm3 (0.0-0.4) 02/27/22 04:12 Baso # (Auto) 0.0 K/mm3 (0.0-0.1) 02/27/22 04:12 Seg Neutrophils % 58.0 % (40.0-70.0) 02/27/22 04:12 Seg Neutrophils # 4.8 K/mm3 (1.8-7.7) 02/27/22 04:12 Sodium 140 mmol/L (137-145) 03/04/22 05:42 Potassium 4.2 mmol/L (3.6-5.0) 03/04/22 05:42 Chloride 104.5 mmol/L (98-107) 03/04/22 05:42 Carbon Dioxide 27 mmol/L (22-30) 03/04/22 05:42 Anion Gap 13 mmol/L 03/04/22 05:42 BUN 10 mg/dL (9-20) 03/04/22 05:42 Creatinine 0.8 mg/dL (0.8-1.3) 03/04/22 05:42 Estimated GFR > 60 ml/min 03/04/22 05:42 BUN/Creatinine Ratio 13 % 03/04/22 05:42 Glucose 99 mg/dL (75-100) 03/04/22 05:42 POC Glucose 146 mg/dL (70-105) H 03/02/22 02:28 Calcium 9.1 mg/dL (8.4-10.2) 03/04/22 05:42 Magnesium 1.70 mg/dL (1.7-2.3) 02/26/22 20:22 Total Bilirubin 0.20 mg/dL (0.1-1.2) 03/04/22 05:42 AST 182 units/L (5-40) H 03/04/22 05:42 ALT 252 units/L (7-56) H 03/04/22 05:42 Alkaline Phosphatase 69 units/L (35-129) 03/04/22 05:42 Total Creatine Kinase 2338 units/L (55-170) H 03/04/22 05:42 Total Protein 6.3 g/dL (6.3-8.2) 03/04/22 05:42 Albumin 3.9 g/dL (3.9-5) 03/04/22 05:42 Albumin/Globulin Ratio 1.6 % 03/04/22 05:42 Urine Color Yellow (Yellow) 02/26/22 12:19 Urine Turbidity Clear (Clear) 02/26/22 12:19 Urine pH 6.5 (5.0-7.0) 02/26/22 12:19 Ur Specific [place] 1.020 (1.003-1.030) 02/26/22 12:19 Urine Protein <15 mg/dl mg/dL (Negative) 02/26/22 12:19 Urine Glucose (UA) Negative mg/dL (Negative) 02/26/22 12:19 Urine Ketones Negative mg/dL (Negative) 02/26/22 12:19 Urine Blood Negative (Negative) 02/26/22 12:19 Urine Nitrite Negative (Negative) 02/26/22 12:19 Ur Reducing Substances Not Reportable 02/26/22 12:19 Urine Bilirubin Negative (Negative) 02/26/22 12:19 Urine Ictotest Not Reportable 02/26/22 12:19 Urine Urobilinogen < 2.0 mg/dL (<2.0) 02/26/22 12:19 Ur Leukocyte Esterase Negative (Negative) 02/26/22 12:19 Urine WBC (Auto) 3.0 /HPF (0.0-6.0) 02/26/22 12:19 Urine RBC (Auto) 1.0 /HPF (0.0-6.0) 02/26/22 12:19 U Epithel Cells (Auto) < 1.0 /HPF (0-13.0) 02/26/22 12:19 Urine Mucus Few /HPF 02/26/22 12:19 Nasal Screen MRSA (PCR) Negative (Negative) 02/27/22 Unknown Salicylates < 0.3 mg/dL (2.8-20.0) L 02/26/22 17:31 Urine Opiates Screen Negative 02/26/22 12:19 Urine Methadone Screen Negative 02/26/22 12:19 Acetaminophen 5.0 ug/mL (10.0-30.0) L 02/26/22 17:31 Ur Barbiturates Screen Negative 02/26/22 12:19 Ur Phencyclidine Scrn Negative 02/26/22 12:19 Ur Amphetamines Screen Negative 02/26/22 12:19 U Benzodiazepines Scrn Positive 02/26/22 12:19 Urine Cocaine Screen Negative 02/26/22 12:19 U Marijuana (THC) Screen Negative 02/26/22 12:19 Drugs of Abuse Note Disclamer 02/26/22 12:19 Plasma/Serum Alcohol < 0.01 % (0-0.07) 02/26/22 17:28 Coronavirus (PCR) Negative (Negative) 02/27/22 09:30 Vincent/IV: Voiding Method Toilet Active Medications - Current Medications Current Medications: Generic Name Dose Route Start Last Admin Trade Name Freq PRN Reason Stop Dose Admin Acetaminophen 650 mg 02/26/22 22:16 03/01/22 10:23 Acetaminophen 325 Mg Tab PO 650 mg Q4H PRN Administration Pain MILD(1-3)/Fever >100.5/MI Haloperidol Lactate 5 mg 02/27/22 13:50 03/03/22 06:04 Haloperidol Lactate 5 Mg/1 Ml Inj IM 5 mg Q6H PRN Administration Agitation Heparin Sodium (Porcine) 5,000 unit 02/27/22 06:00 03/04/22 06:25 Heparin 5,000 Unit/1 Ml Vial SUB-Q 5,000 unit Q8HR LUCILA Administration Sodium Chloride 1,000 mls @ 100 mls/hr 03/02/22 09:30 03/03/22 23:43 Nacl 0.9% 1000 Ml IV 100 mls/hr DIRECT LUCILA Administration Lorazepam 2 mg 02/27/22 13:51 03/04/22 02:55 Lorazepam 2 Mg/Ml Vial IM 2 mg Q6H PRN Administration Agitation Magnesium Hydroxide 30 ml 02/26/22 22:16 03/01/22 21:30 Magnesium Hydroxide (Mom) Oral Liqd Udc PO 30 ml Q4H PRN Administration Constipation Morphine Sulfate 2 mg 02/26/22 22:16 Morphine 2 Mg/1 Ml Inj IV Q4H PRN Pain, Moderate (4-6) Morphine Sulfate 4 mg 02/26/22 22:16 Morphine 4 Mg/1 Ml Inj IV Q4H PRN Pain , Severe (7-10) Olanzapine 5 mg 02/27/22 13:00 03/03/22 22:19 Olanzapine 5 Mg Tab PO Not Given BID LUCILA Ondansetron HCl 4 mg 02/26/22 22:16 Ondansetron 4 Mg/2 Ml Inj IV Q8H PRN Nausea And Vomiting Sodium Chloride 10 ml 02/27/22 10:00 03/04/22 09:32 Sodium Chloride 0.9% 10 Ml Flush Syringe IV 10 ml BID LUCILA Administration Sodium Chloride 10 ml 02/26/22 22:16 Sodium Chloride 0.9% 10 Ml Flush Syringe IV PRN PRN LINE FLUSH
[2022-03-04] MEDS: MORPHINE 2 MG/1 ML INJ IV PRN (11:36)
[2022-03-04] MEDS: HALOPERIDOL LACTATE 5 MG/1 ML INJ IM PRN (11:36)
[2022-03-04] MEDS: SODIUM CHLORIDE 0.9% 1000 ML 1,000 ML IV SCH (11:39)
--- NOTE | 2022-03-04 16:29 | Progress Note ---
Subjective - Reason for Consult Reason for consult: MHE - Chief Complaint Chief complaint: "I got to get out of here" Subjective - DATE SEEN: 03/04/22 Patient seen today. Patient states that he is "feeling better" and "want to go home".patient denies SI/HI at this time, but patient has been aggressive towards staff and has had to be given prn. Patient also denies auditory and visual hallucination at this time. Patient states that if he is discharged [facility] [place] or go to [place]. Pt observed talking to himself and said to be refusing his medications. SUBJECTIVE DATE SEEN:03/03/2022 Patient seen today. Patient asleep. Nursing staff states that he got prn because of agitation. SUBJECTIVE DATE SEEN: 03/02/2022 Patient seen today in his room with the sitter. Patient standing and talking with sitter. Patient observed to be in a good mood. Patient denies any SI/HI at this time. Nursing staff states that he is not disruptive or aggressive, but can get agitated and anxious at times. Patient has been compliant with his medications and also gets prn's when needed. Patients thoughts are disorganized. Patient states that he is eating and sleeping good. DATE SEEN: 02/28/2022 Patient seen to. Patient lying on his bed eating. Patient states that he is feeling okay today, but refusing to take medications because he says the make him "crap a lot". Patient also took out his IV. Patient denies SI/HI at this time and states that he eats and sleeps well ad would like to leave.No changes to plan of care at this time. Mental Status Exam - Vital signs Last Vital Signs Temp 98.2 F 03/04/22 09:56 Pulse 91 H 03/04/22 09:56 Resp 18 03/04/22 11:36 BP 115/67 03/04/22 09:56 Pulse Ox 97 03/04/22 10:00 Assessment and Plan - Patient Problems (1) Psychosis Current Visit: Yes Status: Acute (2) Schizophrenia Current Visit: Yes Status: Acute
[2022-03-04] MEDS ORDERED: FUROSEMIDE 40 MG/4 ML INJ IV ONE (19:21)
[2022-03-04] MEDS ORDERED: ZIPRASIDONE MESYLATE 20 MG VIAL IM ONE (20:23)
[2022-03-04] MEDS: SODIUM CHLORIDE 0.9% 250ML 250 ML IV ONE (21:53)
[2022-03-05] MEDS: SODIUM CHLORIDE 0.9% 1000 ML 1,000 ML IV SCH ×2 (01:47→09:47)
[2022-03-05] MEDS: SODIUM CHLORIDE 0.9% 250ML 250 ML IV ONE (01:47)
[2022-03-05] MEDS: HEPARIN 5,000 UNIT/1 ML VIAL SUB-Q SCH ×3 (05:47→21:42)
[2022-03-05] MEDS: HALOPERIDOL LACTATE 5 MG/1 ML INJ IM PRN ×3 (05:53→21:44)
--- NOTE | 2022-03-05 08:56 | Progress Note ---
Assessment and Plan Assessment and plan: A/p --Rhabdomyolysis creatinine kinase trending down, CK levels 3700 -2338 today Aggressive IV hydration, 250 mL of normal saline fluid bolus in addition to IV fluids 1 dose of IV Lasix, preserved renal function Input output monitoring, plenty of oral fluids -- LFT trending down; Continue IV hydration, monitor liver function tests Until her fluids -- Schizophrenia with psychosis psych following . Continue current management Patient 1013 status per psych --DVT prophylaxis SCD, ambulatory -- Full code status We will closely monitor the patient and adjust the management as needed Plan of care reviewed with the patient and his nurse. Continue to monitor CK levels, LFTs, and continue monitor clinically Patient is still 1013 status, consultant in ergonomics and safety at the bedside Brief history and Hospital course: 21-year-old -[place] male with known history of schizophrenia presenting to the emergency room with changes in mental status. Upon arrival in the emergency room he became agitated and was given some sedation. Work-up in the emergency room, labs are significant for elevated creatinine kinase of 2654. Liver enzymes were also slightly elevated. CT scan of the head shows no focal mass, hemorrhage, hydrocephalus or acute large territorial infarct. Patient has been started on IV fluid normal saline and admitted for further mx. 02/27: -- Follow CPK level, encourage plenty of fluid intake, sitting at the bedside. Psych following, need inpatient care for psychiatric evaluation. 02/28: CPK remains elevated, cont to follow, iv fluid. patient refusing meds per documentation. need inpt care. with disorganized thoughts, very talkative. cont supportive care. sitter at bedside. 03/01: Patient requiring inpatient psych evaluation and management. Sitter at the bedside. Follow CPK level and wait for psych clearance for discharge. 03/02: CPK remians elevated, pt was agitated this am. psych following. follow CPK and LFT. 03/03; worsening CK and LFTs, increase IV fluids To 50 mL normal saline bolus in addition to IV fluids Preserved renal function 03/04 CK levels trending down today 2338, LFTs trending down 250 mL fluid bolus x1, IV Lasix x1 03/05 CK 1808 LFTs 111/ 209 History Interval history: Seen and examined the patient at the bedside Patient's chart and medications reviewed CK levels today 1808 LFTs AST 111, ALT 209 significantly improved 1013 status Patient anxious to go Hospitalist Physical - Constitutional Vitals: Temp Pulse Resp BP Pulse Ox 97.8 F 116 H 18 120/62 94 03/05/22 05:45 03/05/22 05:45 03/05/22 05:45 03/05/22 05:45 03/05/22 05:45 General appearance: Present: no acute distress, well-nourished - EENT Eyes: Present: PERRL, EOM intact - Neck Neck: Present: supple, normal ROM - Respiratory Respiratory effort: normal Respiratory: bilateral: diminished, negative: rales, rhonchi, wheezing - Cardiovascular Rhythm: regular Heart Sounds: Present: S1 & S2 - Extremities Extremities: no ischemia, No edema - Abdominal General gastrointestinal: soft, non-tender, non-distended, normal bowel sounds - Integumentary Integumentary: Present: clear, warm - Psychiatric Psychiatric: appropriate mood/affect, cooperative - Neurologic Neurologic: CNII-XII intact, moves all extremities Results - Labs CBC & Chem 7: 02/27/22 04:12 03/05/22 13:27 Labs: Laboratory Last Values WBC 8.3 K/mm3 (4.5-11.0) 02/27/22 04:12 RBC 4.42 M/mm3 (3.65-5.03) 02/27/22 04:12 Hgb 13.4 gm/dl (11.8-15.2) 02/27/22 04:12 Hct 40.0 % (35.5-45.6) 02/27/22 04:12 MCV 91 fl (84-94) 02/27/22 04:12 MCH 30 pg (28-32) 02/27/22 04:12 MCHC 33 % (32-34) 02/27/22 04:12 RDW 13.3 % (13.2-15.2) 02/27/22 04:12 Plt Count 281 K/mm3 (140-440) 02/27/22 04:12 Lymph % (Auto) 25.8 % (13.4-35.0) 02/27/22 04:12 [place] % (Auto) 11.1 % (0.0-7.3) H 02/27/22 04:12 Eos % (Auto) 4.8 % (0.0-4.3) H 02/27/22 04:12 Baso % (Auto) 0.3 % (0.0-1.8) 02/27/22 04:12 Lymph # (Auto) 2.1 K/mm3 (1.2-5.4) 02/27/22 04:12 [place] # (Auto) 0.9 K/mm3 (0.0-0.8) H 02/27/22 04:12 Eos # (Auto) 0.4 K/mm3 (0.0-0.4) 02/27/22 04:12 Baso # (Auto) 0.0 K/mm3 (0.0-0.1) 02/27/22 04:12 Seg Neutrophils % 58.0 % (40.0-70.0) 02/27/22 04:12 Seg Neutrophils # 4.8 K/mm3 (1.8-7.7) 02/27/22 04:12 Sodium 140 mmol/L (137-145) 03/04/22 05:42 Potassium 4.2 mmol/L (3.6-5.0) 03/04/22 05:42 Chloride 104.5 mmol/L (98-107) 03/04/22 05:42 Carbon Dioxide 27 mmol/L (22-30) 03/04/22 05:42 Anion Gap 13 mmol/L 03/04/22 05:42 BUN 10 mg/dL (9-20) 03/04/22 05:42 Creatinine 0.8 mg/dL (0.8-1.3) 03/04/22 05:42 Estimated GFR > 60 ml/min 03/04/22 05:42 BUN/Creatinine Ratio 13 % 03/04/22 05:42 Glucose 99 mg/dL (75-100) 03/04/22 05:42 POC Glucose 146 mg/dL (70-105) H 03/02/22 02:28 Calcium 9.1 mg/dL (8.4-10.2) 03/04/22 05:42 Magnesium 1.70 mg/dL (1.7-2.3) 02/26/22 20:22 Total Bilirubin 0.20 mg/dL (0.1-1.2) 03/04/22 05:42 AST 182 units/L (5-40) H 03/04/22 05:42 ALT 252 units/L (7-56) H 03/04/22 05:42 Alkaline Phosphatase 69 units/L (35-129) 03/04/22 05:42 Total Creatine Kinase 2338 units/L (55-170) H 03/04/22 05:42 Total Protein 6.3 g/dL (6.3-8.2) 03/04/22 05:42 Albumin 3.9 g/dL (3.9-5) 03/04/22 05:42 Albumin/Globulin Ratio 1.6 % 03/04/22 05:42 Urine Color Yellow (Yellow) 02/26/22 12:19 Urine Turbidity Clear (Clear) 02/26/22 12:19 Urine pH 6.5 (5.0-7.0) 02/26/22 12:19 Ur Specific [place] 1.020 (1.003-1.030) 02/26/22 12:19 Urine Protein <15 mg/dl mg/dL (Negative) 02/26/22 12:19 Urine Glucose (UA) Negative mg/dL (Negative) 02/26/22 12:19 Urine Ketones Negative mg/dL (Negative) 02/26/22 12:19 Urine Blood Negative (Negative) 02/26/22 12:19 Urine Nitrite Negative (Negative) 02/26/22 12:19 Ur Reducing Substances Not Reportable 02/26/22 12:19 Urine Bilirubin Negative (Negative) 02/26/22 12:19 Urine Ictotest Not Reportable 02/26/22 12:19 Urine Urobilinogen < 2.0 mg/dL (<2.0) 02/26/22 12:19 Ur Leukocyte Esterase Negative (Negative) 02/26/22 12:19 Urine WBC (Auto) 3.0 /HPF (0.0-6.0) 02/26/22 12:19 Urine RBC (Auto) 1.0 /HPF (0.0-6.0) 02/26/22 12:19 U Epithel Cells (Auto) < 1.0 /HPF (0-13.0) 02/26/22 12:19 Urine Mucus Few /HPF 02/26/22 12:19 Nasal Screen MRSA (PCR) Negative (Negative) 02/27/22 Unknown Salicylates < 0.3 mg/dL (2.8-20.0) L 02/26/22 17:31 Urine Opiates Screen Negative 02/26/22 12:19 Urine Methadone Screen Negative 02/26/22 12:19 Acetaminophen 5.0 ug/mL (10.0-30.0) L 02/26/22 17:31 Ur Barbiturates Screen Negative 02/26/22 12:19 Ur Phencyclidine Scrn Negative 02/26/22 12:19 Ur Amphetamines Screen Negative 02/26/22 12:19 U Benzodiazepines Scrn Positive 02/26/22 12:19 Urine Cocaine Screen Negative 02/26/22 12:19 U Marijuana (THC) Screen Negative 02/26/22 12:19 Drugs of Abuse Note Disclamer 02/26/22 12:19 Plasma/Serum Alcohol < 0.01 % (0-0.07) 02/26/22 17:28 Coronavirus (PCR) Negative (Negative) 02/27/22 09:30 Vincent/IV: Voiding Method Toilet Active Medications - Current Medications Current Medications: Generic Name Dose Route Start Last Admin Trade Name Freq PRN Reason Stop Dose Admin Acetaminophen 650 mg 02/26/22 22:16 03/01/22 10:23 Acetaminophen 325 Mg Tab PO 650 mg Q4H PRN Administration Pain MILD(1-3)/Fever >100.5/MI Haloperidol Lactate 5 mg 02/27/22 13:50 03/05/22 05:53 Haloperidol Lactate 5 Mg/1 Ml Inj IM 5 mg Q6H PRN Administration Agitation Heparin Sodium (Porcine) 5,000 unit 02/27/22 06:00 03/05/22 05:47 Heparin 5,000 Unit/1 Ml Vial SUB-Q 5,000 unit Q8HR LUCILA Administration Sodium Chloride 1,000 mls @ 100 mls/hr 03/02/22 09:30 03/05/22 01:47 Nacl 0.9% 1000 Ml IV 100 mls/hr DIRECT LUCILA Administration Lorazepam 2 mg 02/27/22 13:51 03/04/22 20:13 Lorazepam 2 Mg/Ml Vial IM 2 mg Q6H PRN Administration Agitation Magnesium Hydroxide 30 ml 02/26/22 22:16 03/01/22 21:30 Magnesium Hydroxide (Mom) Oral Liqd Udc PO 30 ml Q4H PRN Administration Constipation Morphine Sulfate 2 mg 02/26/22 22:16 03/04/22 11:36 Morphine 2 Mg/1 Ml Inj IV 2 mg Q4H PRN Administration Pain, Moderate (4-6) Morphine Sulfate 4 mg 02/26/22 22:16 Morphine 4 Mg/1 Ml Inj IV Q4H PRN Pain , Severe (7-10) Olanzapine 5 mg 02/27/22 13:00 03/05/22 02:05 Olanzapine 5 Mg Tab PO 5 mg BID LUCILA Administration Ondansetron HCl 4 mg 02/26/22 22:16 Ondansetron 4 Mg/2 Ml Inj IV Q8H PRN Nausea And Vomiting Sodium Chloride 10 ml 02/27/22 10:00 03/04/22 21:53 Sodium Chloride 0.9% 10 Ml Flush Syringe IV Not Given BID LUCILA Sodium Chloride 10 ml 02/26/22 22:16 Sodium Chloride 0.9% 10 Ml Flush Syringe IV PRN PRN LINE FLUSH
[2022-03-05] MEDS: LORazepam 2 MG/ML VIAL IM PRN (09:38)
[2022-03-05 14:39] LABS: BUN/Creatinine Ratio 11; Blood Urea Nitrogen 9 mg/dL (9-20); Calcium 9.3 mg/dL (8.4-10.2)
[2022-03-05 14:40] LABS: Alanine Aminotransferase 209 units/L (7-56); Albumin 3.8 g/dL (3.9-5); Hemolysis Index 6
--- NOTE | 2022-03-05 16:05 | Progress Note ---
Subjective - Reason for Consult Reason for consult: MHE - Chief Complaint Chief complaint: "I got to get out of here" Subjective DATE SEEN: 03/05/22 Patient seen today. Patient states he left [place] because "I wanted to leave" and came to [place] with his friend Jaison. Nursing staff reports that patient was aggressive during the night and this morning and had to get prn. Called patients mum and sister, mum lives in [place] and sister in [place]. Patient has been staying in [place] with sister, but according to sister he would refuse to sleep in the house and sleeps outside. Sister states that patient " tends to walk in circles" and drools constantly. Sister states that this episode started in his last year of high school. Patient was previously in a facility called "[facility]" formerly known as "[facility]" in [place]. Sister does not know what medications patient is currently on.Sister also states that patient has been refusing to stay with any family member and is not sure if patient would stay if sent back to her. Also spoke with patients mum who states that patient was dx with schizophrenia, Bipolar and ADHD. Patient has been known not to be compliant with medications. Patient is currently awaiting placement. - DATE SEEN: 03/04/22 Patient seen today. Patient states that he is "feeling better" and "want to go home".patient denies SI/HI at this time, but patient has been aggressive towards staff and has had to be given prn. Patient also denies auditory and visual hallucination at this time. Patient states that if he is discharged he will go to his cousins house in [place] or go to [place]. Pt observed talking to himself and said to be refusing his medications. SUBJECTIVE DATE SEEN:03/03/2022 Patient seen today. Patient asleep. Nursing staff states that he got prn because of agitation. SUBJECTIVE DATE SEEN: 03/02/2022 Patient seen today in his room with the sitter. Patient standing and talking with sitter. Patient observed to be in a good mood. Patient denies any SI/HI at this time. Nursing staff states that he is not disruptive or aggressive, but can get agitated and anxious at times. Patient has been compliant with his medications and also gets prn's when needed. Patients thoughts are disorganized. Patient states that he is eating and sleeping good. DATE SEEN: 02/28/2022 Patient seen to. Patient lying on his bed eating. Patient states that he is feeling okay today, but refusing to take medications because he says the make him "crap a lot". Patient also took out his IV. Patient denies SI/HI at this time and states that he eats and sleeps well ad would like to leave.No changes to plan of care at this time. Mental Status Exam - Vital signs Last Vital Signs Temp 99.5 F 03/05/22 11:39 Pulse 72 03/05/22 11:39 Resp 16 03/05/22 11:39 BP 112/57 03/05/22 11:39 Pulse Ox 100 03/05/22 11:39 Assessment and Plan - Patient Problems (1) Psychosis Current Visit: Yes Status: Acute (2) Schizophrenia Current Visit: Yes Status: Acute
[2022-03-05] MEDS ORDERED: SODIUM CHLORIDE 0.9% 250ML 250 ML IV ONE (20:27)
[2022-03-05] MEDS ORDERED: FUROSEMIDE 40 MG/4 ML INJ IV ONE (20:28)
[2022-03-06] MEDS: LORazepam 2 MG/ML VIAL IM PRN (00:06)
[2022-03-06] MEDS: HALOPERIDOL LACTATE 5 MG/1 ML INJ IM PRN ×2 (02:55→21:49)
[2022-03-06] MEDS ORDERED: ZIPRASIDONE MESYLATE 20 MG VIAL IM ONE (05:13)
[2022-03-06] MEDS ORDERED: WATER FOR INJ Sterile (PF) 10 ML ONE (05:22)
[2022-03-06] MEDS: HEPARIN 5,000 UNIT/1 ML VIAL SUB-Q SCH ×3 (05:36→21:48)
[2022-03-06 06:05] LABS: Alanine Aminotransferase 294 units/L (7-56); Albumin 4.6 g/dL (3.9-5)
[2022-03-06 06:07] LABS: Bilirubin,Direct < 0.2 mg/dL (0-0.2)
--- NOTE | 2022-03-06 12:37 | Progress Note ---
Subjective - Reason for Consult Consult date: 03/06/22 Reason for consult: psychosis - Chief Complaint Chief complaint: The patient was seen today. He is hyperactive, and talking to himself. He is running, punching the air and doing push ups. He is also talking loudly to himself. I ask the patient who he's speaking to, he says "I'm talking to God." He denies SI/HI. Nurse note states the patient has been agitated, pulling IV out and running toward elevator. REVIEW OF SYSTEMS Constitutional: Negative for weight loss ENT: Negative for stridor Respiratory: Negative for cough or hemoptysis All other systems reviewed and are negative MENTAL STATUS EXAMINATION General Appearance and Behavior: Age appropriate, wearing appropriate clothes, cooperative, polite with questioning, good eye contact, pleasant Cooperation: cooperative Psychomotor Behavior: Psychomotor normal Mood: good Affect and affective range: congruent with stated affect Thought Process: Goal directed Thought Content: None Speech: Normal volume, Regular rate and rhythm Suicidal Ideation: Denies Homicidal Ideation: Denies Hallucination: Denies Delusions: None elicited Impulse Control: Normal Insight and Judgment: Normal Memory: Intact Attention:attentive Orientation: Alert and oriented Diagnoses: Schizophrenia Treatment Plan [address] DR 125mg po BID Olanzapine 7.5mg po BID Medical: per primary Disposition: recommend acute psychiatric inpatient treatment Will follow. Thanks Case staffed with Dr. Barragan Mental Status Exam - Vital signs Last Vital Signs Temp 98.2 F 03/05/22 22:44 Pulse 73 03/05/22 22:45 Resp 18 03/05/22 22:44 BP 118/66 03/05/22 22:44 Pulse Ox 99 03/05/22 22:46
[2022-03-06] MEDS: DIVALPROEX DR 125 MG TAB PO SCH ×2 (15:21→21:48)
--- NOTE | 2022-03-06 18:55 | Progress Note ---
Assessment and Plan Assessment and plan: A/p --Rhabdomyolysis creatinine kinase trending down, CK levels 3700 -2338 today Aggressive IV hydration, 250 mL of normal saline fluid bolus in addition to IV fluids 1 dose of IV Lasix, preserved renal function Input output monitoring, plenty of oral fluids -- LFT trending down; Continue IV hydration, monitor liver function tests Until her fluids -- Schizophrenia with psychosis psych following . Continue current management Patient 1013 status per psych --DVT prophylaxis SCD, ambulatory -- Full code status We will closely monitor the patient and adjust the management as needed Plan of care reviewed with the patient and his nurse. Continue to monitor CK levels, LFTs, and continue monitor clinically Patient is still 1013 status, product safety and standards engineer at the bedside Brief history and Hospital course: 21-year-old -[place] male with known history of schizophrenia presenting to the emergency room with changes in mental status. Upon arrival in the emergency room he became agitated and was given some sedation. Work-up in the emergency room, labs are significant for elevated creatinine kinase of 2654. Liver enzymes were also slightly elevated. CT scan of the head shows no focal mass, hemorrhage, hydrocephalus or acute large territorial infarct. Patient has been started on IV fluid normal saline and admitted for further mx. 02/27: -- Follow CPK level, encourage plenty of fluid intake, sitting at the bedside. Psych following, need inpatient care for psychiatric evaluation. 02/28: CPK remains elevated, cont to follow, iv fluid. patient refusing meds per documentation. need inpt care. with disorganized thoughts, very talkative. cont supportive care. sitter at bedside. 03/01: Patient requiring inpatient psych evaluation and management. Sitter at the bedside. Follow CPK level and wait for psych clearance for discharge. 03/02: CPK remians elevated, pt was agitated this am. psych following. follow CPK and LFT. 03/03; worsening CK and LFTs, increase IV fluids To 50 mL normal saline bolus in addition to IV fluids Preserved renal function 03/04 CK levels trending down today 2338, LFTs trending down 250 mL fluid bolus x1, IV Lasix x1 03/05 CK 1808 LFTs 111/ 209 03/06 History Interval history: I have seen and examined the patient at the bedside Patient's chart and medications reviewed Patient is noncompliant pulling off all IVs Refusing medications Hospitalist Physical - Constitutional Vitals: Temp Pulse Resp BP Pulse Ox 98.2 F 73 18 118/66 99 03/05/22 22:44 03/05/22 22:45 03/05/22 22:44 03/05/22 22:44 03/05/22 22:46 General appearance: Present: no acute distress, well-nourished, other (Patient is agitated restraint for safety) - EENT Eyes: Present: PERRL, EOM intact - Neck Neck: Present: supple, normal ROM - Respiratory Respiratory effort: normal Respiratory: bilateral: diminished, negative: rales, rhonchi, wheezing - Cardiovascular Rhythm: regular Heart Sounds: Present: S1 & S2 - Extremities Extremities: no ischemia, No edema - Abdominal General gastrointestinal: soft, non-tender, non-distended - Integumentary Integumentary: Present: clear, warm - Psychiatric Psychiatric: agitated, other (Agitated) - Neurologic Neurologic: moves all extremities Results - Labs CBC & Chem 7: 02/27/22 04:12 03/05/22 13:27 Labs: Laboratory Last Values WBC 8.3 K/mm3 (4.5-11.0) 02/27/22 04:12 RBC 4.42 M/mm3 (3.65-5.03) 02/27/22 04:12 Hgb 13.4 gm/dl (11.8-15.2) 02/27/22 04:12 Hct 40.0 % (35.5-45.6) 02/27/22 04:12 MCV 91 fl (84-94) 02/27/22 04:12 MCH 30 pg (28-32) 02/27/22 04:12 MCHC 33 % (32-34) 02/27/22 04:12 RDW 13.3 % (13.2-15.2) 02/27/22 04:12 Plt Count 281 K/mm3 (140-440) 02/27/22 04:12 Lymph % (Auto) 25.8 % (13.4-35.0) 02/27/22 04:12 [place] % (Auto) 11.1 % (0.0-7.3) H 02/27/22 04:12 Eos % (Auto) 4.8 % (0.0-4.3) H 02/27/22 04:12 Baso % (Auto) 0.3 % (0.0-1.8) 02/27/22 04:12 Lymph # (Auto) 2.1 K/mm3 (1.2-5.4) 02/27/22 04:12 [place] # (Auto) 0.9 K/mm3 (0.0-0.8) H 02/27/22 04:12 Eos # (Auto) 0.4 K/mm3 (0.0-0.4) 02/27/22 04:12 Baso # (Auto) 0.0 K/mm3 (0.0-0.1) 02/27/22 04:12 Seg Neutrophils % 58.0 % (40.0-70.0) 02/27/22 04:12 Seg Neutrophils # 4.8 K/mm3 (1.8-7.7) 02/27/22 04:12 Sodium 141 mmol/L (137-145) 03/05/22 13:27 Potassium 4.2 mmol/L (3.6-5.0) 03/05/22 13:27 Chloride 106.2 mmol/L (98-107) 03/05/22 13:27 Carbon Dioxide 27 mmol/L (22-30) 03/05/22 13:27 Anion Gap 12 mmol/L 03/05/22 13:27 BUN 9 mg/dL (9-20) 03/05/22 13:27 Creatinine 0.8 mg/dL (0.8-1.3) 03/05/22 13:27 Estimated GFR > 60 ml/min 03/05/22 13:27 BUN/Creatinine Ratio 11 % 03/05/22 13:27 Glucose 93 mg/dL (75-100) 03/05/22 13:27 POC Glucose 146 mg/dL (70-105) H 03/02/22 02:28 Calcium 9.3 mg/dL (8.4-10.2) 03/05/22 13:27 Magnesium 1.70 mg/dL (1.7-2.3) 02/26/22 20:22 Total Bilirubin 0.40 mg/dL (0.1-1.2) 03/06/22 05:28 Direct Bilirubin < 0.2 mg/dL (0-0.2) 03/06/22 05:28 Indirect Bilirubin 0.2 mg/dL 03/06/22 05:28 AST 187 units/L (5-40) H 03/06/22 05:28 ALT 294 units/L (7-56) H 03/06/22 05:28 Alkaline Phosphatase 90 units/L (35-129) 03/06/22 05:28 Total Creatine Kinase 2881 units/L (55-170) H 03/06/22 05:28 Total Protein 7.9 g/dL (6.3-8.2) 03/06/22 05:28 Albumin 4.6 g/dL (3.9-5) 03/06/22 05:28 Albumin/Globulin Ratio 1.4 % 03/06/22 05:28 Urine Color Yellow (Yellow) 02/26/22 12:19 Urine Turbidity Clear (Clear) 02/26/22 12:19 Urine pH 6.5 (5.0-7.0) 02/26/22 12:19 Ur Specific [place] 1.020 (1.003-1.030) 02/26/22 12:19 Urine Protein <15 mg/dl mg/dL (Negative) 02/26/22 12:19 Urine Glucose (UA) Negative mg/dL (Negative) 02/26/22 12:19 Urine Ketones Negative mg/dL (Negative) 02/26/22 12:19 Urine Blood Negative (Negative) 02/26/22 12:19 Urine Nitrite Negative (Negative) 02/26/22 12:19 Ur Reducing Substances Not Reportable 02/26/22 12:19 Urine Bilirubin Negative (Negative) 02/26/22 12:19 Urine Ictotest Not Reportable 02/26/22 12:19 Urine Urobilinogen < 2.0 mg/dL (<2.0) 02/26/22 12:19 Ur Leukocyte Esterase Negative (Negative) 02/26/22 12:19 Urine WBC (Auto) 3.0 /HPF (0.0-6.0) 02/26/22 12:19 Urine RBC (Auto) 1.0 /HPF (0.0-6.0) 02/26/22 12:19 U Epithel Cells (Auto) < 1.0 /HPF (0-13.0) 02/26/22 12:19 Urine Mucus Few /HPF 02/26/22 12:19 Nasal Screen MRSA (PCR) Negative (Negative) 02/27/22 Unknown Salicylates < 0.3 mg/dL (2.8-20.0) L 02/26/22 17:31 Urine Opiates Screen Negative 02/26/22 12:19 Urine Methadone Screen Negative 02/26/22 12:19 Acetaminophen 5.0 ug/mL (10.0-30.0) L 02/26/22 17:31 Ur Barbiturates Screen Negative 02/26/22 12:19 Ur Phencyclidine Scrn Negative 02/26/22 12:19 Ur Amphetamines Screen Negative 02/26/22 12:19 U Benzodiazepines Scrn Positive 02/26/22 12:19 Urine Cocaine Screen Negative 02/26/22 12:19 U Marijuana (THC) Screen Negative 02/26/22 12:19 Drugs of Abuse Note Disclamer 02/26/22 12:19 Plasma/Serum Alcohol < 0.01 % (0-0.07) 02/26/22 17:28 Coronavirus (PCR) Negative (Negative) 02/27/22 09:30 Vincent/IV: Voiding Method Toilet Active Medications - Current Medications Current Medications: Generic Name Dose Route Start Last Admin Trade Name Freq PRN Reason Stop Dose Admin Acetaminophen 650 mg 02/26/22 22:16 03/01/22 10:23 Acetaminophen 325 Mg Tab PO 650 mg Q4H PRN Administration Pain MILD(1-3)/Fever >100.5/MI Divalproex Sodium 125 mg 03/06/22 13:00 03/06/22 15:[address] 125 Mg Tab PO 125 mg BID LUCILA Administration Haloperidol Lactate 5 mg 02/27/22 13:50 03/06/22 02:55 Haloperidol Lactate 5 Mg/1 Ml Inj IM 5 mg Q6H PRN Administration Agitation Heparin Sodium (Porcine) 5,000 unit 02/27/22 06:00 03/06/22 15:23 Heparin 5,000 Unit/1 Ml Vial SUB-Q Not Given Q8HR LUCILA Sodium Chloride 1,000 mls @ 100 mls/hr 03/02/22 09:30 03/05/22 09:47 Nacl 0.9% 1000 Ml IV 100 mls/hr DIRECT LUCILA Administration Lorazepam 2 mg 02/27/22 13:51 03/06/22 00:06 Lorazepam 2 Mg/Ml Vial IM 2 mg Q6H PRN Administration Agitation Magnesium Hydroxide 30 ml 02/26/22 22:16 03/01/22 21:30 Magnesium Hydroxide (Mom) Oral Liqd Udc PO 30 ml Q4H PRN Administration Constipation Morphine Sulfate 2 mg 02/26/22 22:16 03/04/22 11:36 Morphine 2 Mg/1 Ml Inj IV 2 mg Q4H PRN Administration Pain, Moderate (4-6) Morphine Sulfate 4 mg 02/26/22 22:16 Morphine 4 Mg/1 Ml Inj IV Q4H PRN Pain , Severe (7-10) Olanzapine 7.5 mg 03/07/22 10:00 Olanzapine 7.5 Mg Tab PO QDAY LUCILA Ondansetron HCl 4 mg 02/26/22 22:16 Ondansetron 4 Mg/2 Ml Inj IV Q8H PRN Nausea And Vomiting Sodium Chloride 10 ml 02/27/22 10:00 03/06/22 10:01 Sodium Chloride 0.9% 10 Ml Flush Syringe IV Not Given BID LUCILA Sodium Chloride 10 ml 02/26/22 22:16 Sodium Chloride 0.9% 10 Ml Flush Syringe IV PRN PRN LINE FLUSH
[2022-03-07] MEDS: HALOPERIDOL LACTATE 5 MG/1 ML INJ IM PRN ×2 (04:41→11:38)
[2022-03-07] MEDS: HEPARIN 5,000 UNIT/1 ML VIAL SUB-Q SCH ×4 (04:48→21:44)
[2022-03-07] MEDS: DIVALPROEX DR 125 MG TAB PO SCH (10:05)
[2022-03-07] MEDS ORDERED: SODIUM CHLORIDE 0.9% 500 ML 500 ML IV ONE ×2 (10:13→19:39)
--- NOTE | 2022-03-07 10:16 | Progress Note ---
Assessment and Plan Assessment and plan: A/p --Rhabdomyolysis creatinine kinase trending down, CK levels 3700 -2881 today Aggressive IV hydration, 250 mL of normal saline fluid bolus in addition to IV fluids 1 dose of IV Lasix, preserved renal function Input output monitoring, plenty of oral fluids -- LFT trending down; Continue IV hydration, monitor liver function tests Until her fluids -- Schizophrenia with psychosis psych following . Continue current management Patient 1013 status per psych --DVT prophylaxis SCD, ambulatory -- Full code status We will closely monitor the patient and adjust the management as needed Plan of care reviewed with the patient and his nurse. Continue to monitor CK levels, LFTs, and continue monitor clinically Patient is still 1013 status, environmental health safety engineer at the bedside Patient is not medically stable due to rhabdomyolysis and transaminitis which are not getting better as patient is refusing treatment with IV fluids Brief history and Hospital course: 21-year-old -[place] male with known history of schizophrenia presenting to the emergency room with changes in mental status. Upon arrival in the emergency room he became agitated and was given some sedation. Work-up in the emergency room, labs are significant for elevated creatinine kinase of 2654. Liver enzymes were also slightly elevated. CT scan of the head shows no focal mass, hemorrhage, hydrocephalus or acute large territorial infarct. Patient has been started on IV fluid normal saline and admitted for further mx. 02/27: -- Follow CPK level, encourage plenty of fluid intake, sitting at the bedside. Psych following, need inpatient care for psychiatric evaluation. 02/28: CPK remains elevated, cont to follow, iv fluid. patient refusing meds per documentation. need inpt care. with disorganized thoughts, very talkative. cont supportive care. sitter at bedside. 03/01: Patient requiring inpatient psych evaluation and management. Sitter at the bedside. Follow CPK level and wait for psych clearance for discharge. 03/02: CPK remians elevated, pt was agitated this am. psych following. follow CPK and LFT. 03/03; worsening CK and LFTs, increase IV fluids To 50 mL normal saline bolus in addition to IV fluids Preserved renal function 03/04 CK levels trending down today 2338, LFTs trending down 250 mL fluid bolus x1, IV Lasix x1 03/05 CK 1808 LFTs 111/ 209 03/07/2022; patient is refusing IV fluids and medications, rhabdomyolysis not improving Unable to clear medically for inpatient psych placement, discussed with the psych nurse practitioner For four-point restraints and some sedation during the daytime to get therapy History Interval history: I have seen and examined the patient at the bedside Patient's chart and medications reviewed Patient is emaciated cachectic dehydrated as he is refusing water and IV fluids and sometimes even for Patient is schizophrenic unable to comprehend unable to respond appropriately Awaiting psych placement once medically stable Hospitalist Physical - Constitutional Vitals: Temp Pulse Resp BP Pulse Ox 97.3 F L 85 18 112/58 99 03/07/22 04:40 03/07/22 04:40 03/07/22 04:40 03/07/22 04:40 03/07/22 04:40 General appearance: Present: no acute distress, well-nourished - EENT Eyes: Present: PERRL, EOM intact - Respiratory Respiratory effort: normal Respiratory: bilateral: diminished, negative: rales, rhonchi, wheezing - Cardiovascular Rhythm: regular Heart Sounds: Present: S1 & S2 - Extremities Extremities: no ischemia, No edema - Abdominal General gastrointestinal: soft, non-tender, non-distended, normal bowel sounds - Integumentary Integumentary: Present: clear, warm - Psychiatric Psychiatric: appropriate mood/affect, agitated - Neurologic Neurologic: moves all extremities Results - Labs CBC & Chem 7: 02/27/22 04:12 03/05/22 13:27 Labs: Laboratory Last Values WBC 8.3 K/mm3 (4.5-11.0) 02/27/22 04:12 RBC 4.42 M/mm3 (3.65-5.03) 02/27/22 04:12 Hgb 13.4 gm/dl (11.8-15.2) 02/27/22 04:12 Hct 40.0 % (35.5-45.6) 02/27/22 04:12 MCV 91 fl (84-94) 02/27/22 04:12 MCH 30 pg (28-32) 02/27/22 04:12 MCHC 33 % (32-34) 02/27/22 04:12 RDW 13.3 % (13.2-15.2) 02/27/22 04:12 Plt Count 281 K/mm3 (140-440) 02/27/22 04:12 Lymph % (Auto) 25.8 % (13.4-35.0) 02/27/22 04:12 Luna % (Auto) 11.1 % (0.0-7.3) H 02/27/22 04:12 Eos % (Auto) 4.8 % (0.0-4.3) H 02/27/22 04:12 Baso % (Auto) 0.3 % (0.0-1.8) 02/27/22 04:12 Lymph # (Auto) 2.1 K/mm3 (1.2-5.4) 02/27/22 04:12 Luna # (Auto) 0.9 K/mm3 (0.0-0.8) H 02/27/22 04:12 Eos # (Auto) 0.4 K/mm3 (0.0-0.4) 02/27/22 04:12 Baso # (Auto) 0.0 K/mm3 (0.0-0.1) 02/27/22 04:12 Seg Neutrophils % 58.0 % (40.0-70.0) 02/27/22 04:12 Seg Neutrophils # 4.8 K/mm3 (1.8-7.7) 02/27/22 04:12 Sodium 141 mmol/L (137-145) 03/05/22 13:27 Potassium 4.2 mmol/L (3.6-5.0) 03/05/22 13:27 Chloride 106.2 mmol/L (98-107) 03/05/22 13:27 Carbon Dioxide 27 mmol/L (22-30) 03/05/22 13:27 Anion Gap 12 mmol/L 03/05/22 13:27 BUN 9 mg/dL (9-20) 03/05/22 13:27 Creatinine 0.8 mg/dL (0.8-1.3) 03/05/22 13:27 Estimated GFR > 60 ml/min 03/05/22 13:27 BUN/Creatinine Ratio 11 % 03/05/22 13:27 Glucose 93 mg/dL (75-100) 03/05/22 13:27 POC Glucose 146 mg/dL (70-105) H 03/02/22 02:28 Calcium 9.3 mg/dL (8.4-10.2) 03/05/22 13:27 Magnesium 1.70 mg/dL (1.7-2.3) 02/26/22 20:22 Total Bilirubin 0.40 mg/dL (0.1-1.2) 03/06/22 05:28 Direct Bilirubin < 0.2 mg/dL (0-0.2) 03/06/22 05:28 Indirect Bilirubin 0.2 mg/dL 03/06/22 05:28 AST 187 units/L (5-40) H 03/06/22 05:28 ALT 294 units/L (7-56) H 03/06/22 05:28 Alkaline Phosphatase 90 units/L (35-129) 03/06/22 05:28 Total Creatine Kinase 2881 units/L (55-170) H 03/06/22 05:28 Total Protein 7.9 g/dL (6.3-8.2) 03/06/22 05:28 Albumin 4.6 g/dL (3.9-5) 03/06/22 05:28 Albumin/Globulin Ratio 1.4 % 03/06/22 05:28 Urine Color Yellow (Yellow) 02/26/22 12:19 Urine Turbidity Clear (Clear) 02/26/22 12:19 Urine pH 6.5 (5.0-7.0) 02/26/22 12:19 Ur Specific [place] 1.020 (1.003-1.030) 02/26/22 12:19 Urine Protein <15 mg/dl mg/dL (Negative) 02/26/22 12:19 Urine Glucose (UA) Negative mg/dL (Negative) 02/26/22 12:19 Urine Ketones Negative mg/dL (Negative) 02/26/22 12:19 Urine Blood Negative (Negative) 02/26/22 12:19 Urine Nitrite Negative (Negative) 02/26/22 12:19 Ur Reducing Substances Not Reportable 02/26/22 12:19 Urine Bilirubin Negative (Negative) 02/26/22 12:19 Urine Ictotest Not Reportable 02/26/22 12:19 Urine Urobilinogen < 2.0 mg/dL (<2.0) 02/26/22 12:19 Ur Leukocyte Esterase Negative (Negative) 02/26/22 12:19 Urine WBC (Auto) 3.0 /HPF (0.0-6.0) 02/26/22 12:19 Urine RBC (Auto) 1.0 /HPF (0.0-6.0) 02/26/22 12:19 U Epithel Cells (Auto) < 1.0 /HPF (0-13.0) 02/26/22 12:19 Urine Mucus Few /HPF 02/26/22 12:19 Nasal Screen MRSA (PCR) Negative (Negative) 02/27/22 Unknown Salicylates < 0.3 mg/dL (2.8-20.0) L 02/26/22 17:31 Urine Opiates Screen Negative 02/26/22 12:19 Urine Methadone Screen Negative 02/26/22 12:19 Acetaminophen 5.0 ug/mL (10.0-30.0) L 02/26/22 17:31 Ur Barbiturates Screen Negative 02/26/22 12:19 Ur Phencyclidine Scrn Negative 02/26/22 12:19 Ur Amphetamines Screen Negative 02/26/22 12:19 U Benzodiazepines Scrn Positive 02/26/22 12:19 Urine Cocaine Screen Negative 02/26/22 12:19 U Marijuana (THC) Screen Negative 02/26/22 12:19 Drugs of Abuse Note Disclamer 02/26/22 12:19 Plasma/Serum Alcohol < 0.01 % (0-0.07) 02/26/22 17:28 Coronavirus (PCR) Negative (Negative) 02/27/22 09:30 Vincent/IV: Voiding Method Toilet Active Medications - Current Medications Current Medications: Generic Name Dose Route Start Last Admin Trade Name Freq PRN Reason Stop Dose Admin Acetaminophen 650 mg 02/26/22 22:16 03/01/22 10:23 Acetaminophen 325 Mg Tab PO 650 mg Q4H PRN Administration Pain MILD(1-3)/Fever >100.5/MI Divalproex Sodium 125 mg 03/06/22 13:00 03/07/22 10:[address] 125 Mg Tab PO 125 mg BID LUCILA Administration Haloperidol Lactate 5 mg 02/27/22 13:50 03/07/22 04:41 Haloperidol Lactate 5 Mg/1 Ml Inj IM 5 mg Q6H PRN Administration Agitation Heparin Sodium (Porcine) 5,000 unit 02/27/22 06:00 03/07/22 05:12 Heparin 5,000 Unit/1 Ml Vial SUB-Q Not Given Q8HR LUCILA Sodium Chloride 1,000 mls @ 100 mls/hr 03/02/22 09:30 03/05/22 09:47 Nacl 0.9% 1000 Ml IV 100 mls/hr DIRECT LUCILA Administration Lorazepam 2 mg 02/27/22 13:51 03/06/22 00:06 Lorazepam 2 Mg/Ml Vial IM 2 mg Q6H PRN Administration Agitation Magnesium Hydroxide 30 ml 02/26/22 22:16 03/01/22 21:30 Magnesium Hydroxide (Mom) Oral Liqd Udc PO 30 ml Q4H PRN Administration Constipation Morphine Sulfate 2 mg 02/26/22 22:16 03/04/22 11:36 Morphine 2 Mg/1 Ml Inj IV 2 mg Q4H PRN Administration Pain, Moderate (4-6) Morphine Sulfate 4 mg 02/26/22 22:16 Morphine 4 Mg/1 Ml Inj IV Q4H PRN Pain , Severe (7-10) Olanzapine 7.5 mg 03/07/22 10:00 03/07/22 10:05 Olanzapine 7.5 Mg Tab PO 7.5 mg QDAY LUCILA Administration Ondansetron HCl 4 mg 02/26/22 22:16 Ondansetron 4 Mg/2 Ml Inj IV Q8H PRN Nausea And Vomiting Sodium Chloride 10 ml 02/27/22 10:00 03/07/22 10:05 Sodium Chloride 0.9% 10 Ml Flush Syringe IV Not Given BID LUCILA Sodium Chloride 10 ml 02/26/22 22:16 Sodium Chloride 0.9% 10 Ml Flush Syringe IV PRN PRN LINE FLUSH Nutrition/Malnutrition Assess - Dietary Evaluation Nutrition/Malnutrition Findings: Nutrition Notes Start: 03/06/22 19:49 Freq: Status: Active Protocol: Document 03/06/22 19:49 STACY (Rec: 03/06/22 19:55 STACY [id number]) Nutrition Notes Need for Assessment generated from: LOS Initial or Follow up Assessment Other Pertinent Diagnosis Psuchosis, Schizophrenia, Rabdomyolysis, Transaminitis. Current Diet Regular Diet (since B 02/27). Labs/Tests 03/05: WNL. Pertinent Medications 03/06: Nutritionally unremarkable. 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 Weight Status Appropriate Subjective/Other Information RD consult for LOS assessment. Pt's PO intake of meals has been Good (100%) and well tolerated, according to ADL notes. Pt is on Room Air, O2 saturation @ 98%, according to Physical Assessment History notes. Percent of energy/protein needs met: Prescribed Regular Diet provides for energy/protein needs (2,289 Kcal/89 g) during LOS. Burn Absent Trauma Absent GI Symptoms None Food Allergy No Skin Integrity/Comment Assessment WNL. 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 No Is Patient Ambulatory and/or Out of Bed Yes REE-([facility]-ambulatory/OOB) [ 2068.950 [id number]] Kcal/Kg value to use for calculation 30 Approximate Energy Requirements Using 1836 kcal/Kg Calculation Used for Recommendations Kcal/kg Additional Notes Protein: 0.8-1 g/Kg ABW; 49-61 g/day. Fluids: 1 ml/Kcal, or as per MD. Nutrition Intervention Change Diet Order: Continue Regular Diet. Revisit per MD consult or patient Sign Off request: Additional Comments Continue monitoring food tolerance, %PO intake of meals , and BM.
--- NOTE | 2022-03-07 12:40 | Progress Note ---
Subjective - Reason for Consult Consult date: 03/07/22 Reason for consult: psychosis, agitation - Chief Complaint Chief complaint: The patient was seen today. He is lying in bed. The nurse and doctor are at bedside. The patient is awake but his speech is slurred. The nurse says the patient was just medicated with Haldol. The doctor says the patient is constantly pulling out his line, not sleeping and running everywhere. REVIEW OF SYSTEMS Constitutional: Negative for weight loss ENT: Negative for stridor Respiratory: Negative for cough or hemoptysis All other systems reviewed and are negative MENTAL STATUS EXAMINATION General Appearance and Behavior: Age appropriate, wearing appropriate clothes, cooperative, polite with questioning, good eye contact, pleasant Cooperation: cooperative Psychomotor Behavior: Psychomotor normal Mood: good Affect and affective range: congruent with stated affect Thought Process: Goal directed Thought Content: None Speech: Normal volume, Regular rate and rhythm Suicidal Ideation: Denies Homicidal Ideation: Denies Hallucination: Denies Delusions: None elicited Impulse Control: Normal Insight and Judgment: Normal Memory: Intact Attention:attentive Orientation: Alert and oriented Diagnoses: Schizophrenia Treatment Plan Increase Depakote DR 250mg po BID Increase Olanzapine 10mg po BID Start Doxepin 25mg po qhs Agree with Lorazepam and Haldol prn orders Medical: per primary Disposition: recommend acute psychiatric inpatient treatment Will follow. Thanks Case staffed with Dr. Barragan Mental Status Exam - Vital signs Last Vital Signs Temp 97.5 F L 03/07/22 11:20 Pulse 79 03/07/22 11:20 Resp 18 03/07/22 11:20 BP 112/67 03/07/22 11:20 Pulse Ox 98 03/07/22 11:20
[2022-03-07] MEDS: LORazepam 2 MG/ML VIAL IM PRN (16:59)
[2022-03-07] MEDS ORDERED: FUROSEMIDE 40 MG/4 ML INJ IV ONE (19:41)
[2022-03-07] MEDS: DIVALPROEX DR 250 MG TAB PO SCH (21:44)
[2022-03-07] MEDS: DOXEPIN 25 MG CAP PO SCH (21:44)
[2022-03-08] MEDS: HEPARIN 5,000 UNIT/1 ML VIAL SUB-Q SCH ×3 (05:42→22:02)
[2022-03-08] MEDS: HALOPERIDOL LACTATE 5 MG/1 ML INJ IM PRN (05:45)
[2022-03-08 06:52] LABS: Alanine Aminotransferase 244 units/L (7-56); Albumin 4.4 g/dL (3.9-5)
[2022-03-08 06:58] LABS: Bilirubin,Direct < 0.2 mg/dL (0-0.2)
--- NOTE | 2022-03-08 09:55 | Progress Note ---
Assessment and Plan Assessment and plan: --Rhabdomyolysis creatinine kinase trending down, CK levels 3700 -2881 today Aggressive IV hydration, 250 mL of normal saline fluid bolus in addition to IV fluids 1 dose of IV Lasix, preserved renal function Input output monitoring, plenty of oral fluids -- LFT trending down; Continue IV hydration, monitor liver function tests Until her fluids -- Schizophrenia with psychosis psych following . Continue current management Patient 1013 status per psych --DVT prophylaxis SCD, ambulatory -- Full code status We will closely monitor the patient and adjust the management as needed Plan of care reviewed with the patient and his nurse. Continue to monitor CK levels, LFTs, and continue monitor clinically Patient is still 1013 status, health and safety consultant at the bedside Patient is not medically stable due to rhabdomyolysis and transaminitis which are not getting better as expected as patient is refusing treatment with IV fluids Brief history and Hospital course: 21-year-old -I[place] male with known history of schizophrenia presenting to the emergency room with changes in mental status. Upon arrival in the emergency room he became agitated and was given some sedation. Work-up in the emergency room, labs are significant for elevated creatinine kinase of 2654. Liver enzymes were also slightly elevated. CT scan of the head shows no focal mass, hemorrhage, hydrocephalus or acute large territorial infarct. Patient has been started on IV fluid normal saline and admitted for further mx. 02/27: -- Follow CPK level, encourage plenty of fluid intake, sitting at the bedside. Psych following, need inpatient care for psychiatric evaluation. 02/28: CPK remains elevated, cont to follow, iv fluid. patient refusing meds per documentation. need inpt care. with disorganized thoughts, very talkative. cont supportive care. sitter at bedside. 03/01: Patient requiring inpatient psych evaluation and management. Sitter at the bedside. Follow CPK level and wait for psych clearance for discharge. 03/02: CPK remians elevated, pt was agitated this am. psych following. follow CPK and LFT. 03/03; worsening CK and LFTs, increase IV fluids To 50 mL normal saline bolus in addition to IV fluids Preserved renal function 03/04 CK levels trending down today 2338, LFTs trending down 250 mL fluid bolus x1, IV Lasix x1 03/05 CK 1808 LFTs 111/ 209 03/07/2022; patient is refusing IV fluids and medications, rhabdomyolysis not improving Unable to clear medically for inpatient psych placement, discussed with the psych nurse practitioner For four-point restraints and some sedation during the daytime to get therapy 03/08; CK 1982, LFTs 133 and 244 Restraint for safety, 1013 status Continue IV fluids, additional 500 mL normal saline bolus followed by IV Lasix 40 mg Input output monitoring History Interval history: I have seen and examined the patient at the bedside Patient's chart and medications reviewed Patient is still belligerent requiring restraints Refusing treatment CK level still high at 1982, LFTs trending down still high 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 Hospitalist Physical - Constitutional Vitals: Temp Pulse Resp BP Pulse Ox 98.2 F 92 H 18 110/60 98 03/07/22 15:37 03/07/22 15:37 03/07/22 15:37 03/07/22 15:37 03/07/22 20:14 General appearance: Present: no acute distress, well-nourished, other (Patient is agitated restraint for safety) - EENT Eyes: Present: PERRL, EOM intact - Neck Neck: Present: supple, normal ROM - Respiratory Respiratory effort: normal Respiratory: bilateral: diminished, negative: rales, rhonchi, wheezing - Cardiovascular Rhythm: regular Heart Sounds: Present: S1 & S2 - Extremities Extremities: no ischemia, No edema - Abdominal General gastrointestinal: soft, non-tender, non-distended, normal bowel sounds - Integumentary Integumentary: Present: clear, warm - Psychiatric Psychiatric: agitated, other - Neurologic Neurologic: moves all extremities (Sometimes confused) Results - Labs CBC & Chem 7: 02/27/22 04:12 03/05/22 13:27 Labs: Laboratory Last Values WBC 8.3 K/mm3 (4.5-11.0) 02/27/22 04:12 RBC 4.42 M/mm3 (3.65-5.03) 02/27/22 04:12 Hgb 13.4 gm/dl (11.8-15.2) 02/27/22 04:12 Hct 40.0 % (35.5-45.6) 02/27/22 04:12 MCV 91 fl (84-94) 02/27/22 04:12 MCH 30 pg (28-32) 02/27/22 04:12 MCHC 33 % (32-34) 02/27/22 04:12 RDW 13.3 % (13.2-15.2) 02/27/22 04:12 Plt Count 281 K/mm3 (140-440) 02/27/22 04:12 Lymph % (Auto) 25.8 % (13.4-35.0) 02/27/22 04:12 [place] % (Auto) 11.1 % (0.0-7.3) H 02/27/22 04:12 Eos % (Auto) 4.8 % (0.0-4.3) H 02/27/22 04:12 Baso % (Auto) 0.3 % (0.0-1.8) 02/27/22 04:12 Lymph # (Auto) 2.1 K/mm3 (1.2-5.4) 02/27/22 04:12 [place] # (Auto) 0.9 K/mm3 (0.0-0.8) H 02/27/22 04:12 Eos # (Auto) 0.4 K/mm3 (0.0-0.4) 02/27/22 04:12 Baso # (Auto) 0.0 K/mm3 (0.0-0.1) 02/27/22 04:12 Seg Neutrophils % 58.0 % (40.0-70.0) 02/27/22 04:12 Seg Neutrophils # 4.8 K/mm3 (1.8-7.7) 02/27/22 04:12 Sodium 141 mmol/L (137-145) 03/05/22 13:27 Potassium 4.2 mmol/L (3.6-5.0) 03/05/22 13:27 Chloride 106.2 mmol/L (98-107) 03/05/22 13:27 Carbon Dioxide 27 mmol/L (22-30) 03/05/22 13:27 Anion Gap 12 mmol/L 03/05/22 13:27 BUN 9 mg/dL (9-20) 03/05/22 13:27 Creatinine 0.8 mg/dL (0.8-1.3) 03/05/22 13:27 Estimated GFR > 60 ml/min 03/05/22 13:27 BUN/Creatinine Ratio 11 % 03/05/22 13:27 Glucose 93 mg/dL (75-100) 03/05/22 13:27 POC Glucose 146 mg/dL (70-105) H 03/02/22 02:28 Calcium 9.3 mg/dL (8.4-10.2) 03/05/22 13:27 Magnesium 1.70 mg/dL (1.7-2.3) 02/26/22 20:22 Total Bilirubin 0.30 mg/dL (0.1-1.2) 03/08/22 05:23 Direct Bilirubin < 0.2 mg/dL (0-0.2) 03/08/22 05:23 Indirect Bilirubin 0.1 mg/dL 03/08/22 05:23 AST 133 units/L (5-40) H 03/08/22 05:23 ALT 244 units/L (7-56) H 03/08/22 05:23 Alkaline Phosphatase 97 units/L (35-129) 03/08/22 05:23 Total Creatine Kinase 1983 units/L (55-170) H 03/08/22 05:23 Total Protein 7.3 g/dL (6.3-8.2) 03/08/22 05:23 Albumin 4.4 g/dL (3.9-5) 03/08/22 05:23 Albumin/Globulin Ratio 1.5 % 03/08/22 05:23 Urine Color Yellow (Yellow) 02/26/22 12:19 Urine Turbidity Clear (Clear) 02/26/22 12:19 Urine pH 6.5 (5.0-7.0) 02/26/22 12:19 Ur Specific [place] 1.020 (1.003-1.030) 02/26/22 12:19 Urine Protein <15 mg/dl mg/dL (Negative) 02/26/22 12:19 Urine Glucose (UA) Negative mg/dL (Negative) 02/26/22 12:19 Urine Ketones Negative mg/dL (Negative) 02/26/22 12:19 Urine Blood Negative (Negative) 02/26/22 12:19 Urine Nitrite Negative (Negative) 02/26/22 12:19 Ur Reducing Substances Not Reportable 02/26/22 12:19 Urine Bilirubin Negative (Negative) 02/26/22 12:19 Urine Ictotest Not Reportable 02/26/22 12:19 Urine Urobilinogen < 2.0 mg/dL (<2.0) 02/26/22 12:19 Ur Leukocyte Esterase Negative (Negative) 02/26/22 12:19 Urine WBC (Auto) 3.0 /HPF (0.0-6.0) 02/26/22 12:19 Urine RBC (Auto) 1.0 /HPF (0.0-6.0) 02/26/22 12:19 U Epithel Cells (Auto) < 1.0 /HPF (0-13.0) 02/26/22 12:19 Urine Mucus Few /HPF 02/26/22 12:19 Nasal Screen MRSA (PCR) Negative (Negative) 02/27/22 Unknown Salicylates < 0.3 mg/dL (2.8-20.0) L 02/26/22 17:31 Urine Opiates Screen Negative 02/26/22 12:19 Urine Methadone Screen Negative 02/26/22 12:19 Acetaminophen 5.0 ug/mL (10.0-30.0) L 02/26/22 17:31 Ur Barbiturates Screen Negative 02/26/22 12:19 Ur Phencyclidine Scrn Negative 02/26/22 12:19 Ur Amphetamines Screen Negative 02/26/22 12:19 U Benzodiazepines Scrn Positive 02/26/22 12:19 Urine Cocaine Screen Negative 02/26/22 12:19 U Marijuana (THC) Screen Negative 02/26/22 12:19 Drugs of Abuse Note Disclamer 02/26/22 12:19 Plasma/Serum Alcohol < 0.01 % (0-0.07) 02/26/22 17:28 Coronavirus (PCR) Negative (Negative) 02/27/22 09:30 Vincent/IV: Voiding Method Toilet Active Medications - Current Medications Current Medications: Generic Name Dose Route Start Last Admin Trade Name Freq PRN Reason Stop Dose Admin Acetaminophen 650 mg 02/26/22 22:16 03/01/22 10:23 Acetaminophen 325 Mg Tab PO 650 mg Q4H PRN Administration Pain MILD(1-3)/Fever >100.5/MI Divalproex Sodium 250 mg 03/07/22 22:00 03/07/22 21:[address] 250 Mg Tab PO 250 mg BID LUCILA Administration Doxepin HCl 25 mg 03/07/22 22:00 03/07/22 21:44 Doxepin 25 Mg Cap PO 25 mg QHS LUCILA Administration Furosemide 40 mg 03/08/22 12:00 Furosemide 40 Mg/4 Ml Inj IV 03/08/22 12:01 ONCE ONE Haloperidol Lactate 5 mg 02/27/22 13:50 03/08/22 05:45 Haloperidol Lactate 5 Mg/1 Ml Inj IM 5 mg Q6H PRN Administration Agitation Heparin Sodium (Porcine) 5,000 unit 02/27/22 06:00 03/08/22 05:42 Heparin 5,000 Unit/1 Ml Vial SUB-Q Not Given Q8HR LUCILA Sodium Chloride 1,000 mls @ 100 mls/hr 03/02/22 09:30 03/05/22 09:47 Nacl 0.9% 1000 Ml IV 100 mls/hr DIRECT LUCILA Administration Sodium Chloride 500 mls @ 999 mls/hr 03/08/22 09:49 Nacl 0.9% 500 Ml IV 03/08/22 10:19 ONCE ONE Lorazepam 2 mg 02/27/22 13:51 03/07/22 16:59 Lorazepam 2 Mg/Ml Vial IM 2 mg Q6H PRN Administration Agitation Magnesium Hydroxide 30 ml 02/26/22 22:16 03/01/22 21:30 Magnesium Hydroxide (Mom) Oral Liqd Udc PO 30 ml Q4H PRN Administration Constipation Morphine Sulfate 2 mg 02/26/22 22:16 03/04/22 11:36 Morphine 2 Mg/1 Ml Inj IV 2 mg Q4H PRN Administration Pain, Moderate (4-6) Morphine Sulfate 4 mg 02/26/22 22:16 Morphine 4 Mg/1 Ml Inj IV Q4H PRN Pain , Severe (7-10) Olanzapine 10 mg 03/08/22 10:00 Olanzapine 10 Mg Tab PO QDAY LUCILA Ondansetron HCl 4 mg 02/26/22 22:16 Ondansetron 4 Mg/2 Ml Inj IV Q8H PRN Nausea And Vomiting Sodium Chloride 10 ml 02/27/22 10:00 03/07/22 21:45 Sodium Chloride 0.9% 10 Ml Flush Syringe IV 10 ml BID LUCILA Administration Sodium Chloride 10 ml 02/26/22 22:16 Sodium Chloride 0.9% 10 Ml Flush Syringe IV PRN PRN LINE FLUSH Nutrition/Malnutrition Assess - Dietary Evaluation Nutrition/Malnutrition Findings: Nutrition Notes Start: 03/06/22 19:49 Freq: Status: Active Protocol: Document 03/06/22 19:49 STACY (Rec: 03/06/22 19:55 STACY [id number]) Nutrition Notes Need for Assessment generated from: LOS Initial or Follow up Assessment Other Pertinent Diagnosis Psuchosis, Schizophrenia, Rabdomyolysis, Transaminitis. Current Diet Regular Diet (since B 02/27). Labs/Tests 03/05: WNL. Pertinent Medications 03/06: Nutritionally unremarkable. 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 Weight Status Appropriate Subjective/Other Information RD consult for LOS assessment. Pt's PO intake of meals has been Good (100%) and well tolerated, according to ADL notes. Pt is on Room Air, O2 saturation @ 98%, according to Physical Assessment History notes. Percent of energy/protein needs met: Prescribed Regular Diet provides for energy/protein needs (2,289 Kcal/89 g) during LOS. Burn Absent Trauma Absent GI Symptoms None Food Allergy No Skin Integrity/Comment Assessment WNL. 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 No Is Patient Ambulatory and/or Out of Bed Yes REE-([facility]-ambulatory/OOB) [ 4788.950 NUTR.[id number]] Kcal/Kg value to use for calculation 30 Approximate Energy Requirements Using 1836 kcal/Kg Calculation Used for Recommendations Kcal/kg Additional Notes Protein: 0.8-1 g/Kg ABW; 49-61 g/day. Fluids: 1 ml/Kcal, or as per MD. Nutrition Intervention Change Diet Order: Continue Regular Diet. Revisit per MD consult or patient Sign Off request: Additional Comments Continue monitoring food tolerance, %PO intake of meals , and BM.
[2022-03-08] MEDS ORDERED: SODIUM CHLORIDE 0.9% 500 ML 500 ML IV ONE ×2 (10:00→19:17)
[2022-03-08] MEDS: DIVALPROEX DR 250 MG TAB PO SCH ×2 (10:24→21:14)
--- NOTE | 2022-03-08 10:58 | Progress Note ---
Subjective - Reason for Consult Consult date: 03/08/22 Reason for consult: psychosis - Chief Complaint Chief complaint: The patient was seen today. He is sitting on the side of bed. The nurse is at bedside. The patient is much more calm today. He is less hyper and not talking to himself. He is polite. He says he slept good and his appetite is good. He says "I'm a little hungry now." He denies SI/HI or hallucinations. The nurse at bedside says the patient has been more calm, and cooperative. She says he hasn't been pulling out his lines and has been listening. She also says the patient slept well and his appetite is very good. REVIEW OF SYSTEMS Constitutional: Negative for weight loss ENT: Negative for stridor Respiratory: Negative for cough or hemoptysis All other systems reviewed and are negative MENTAL STATUS EXAMINATION General Appearance and Behavior: Age appropriate, wearing appropriate clothes, cooperative, polite with questioning, good eye contact, pleasant Cooperation: cooperative Psychomotor Behavior: Psychomotor normal Mood: good Affect and affective range: congruent with stated affect Thought Process: Goal directed Thought Content: None Speech: Normal volume, Regular rate and rhythm Suicidal Ideation: Denies Homicidal Ideation: Denies Hallucination: Denies Delusions: None elicited Impulse Control: Normal Insight and Judgment: Normal Memory: Intact Attention:attentive Orientation: Alert and oriented Diagnoses: Schizophrenia Treatment Plan Continue Depakote DR 250mg po BID Continue Olanzapine 10mg po BID Continue Doxepin 25mg po qhs Agree with Lorazepam and Haldol prn orders Medical: per primary Disposition: recommend acute psychiatric inpatient treatment Will follow. Thanks Case staffed with Dr. Barragan Mental Status Exam - Vital signs Last Vital Signs Temp 98.2 F 03/07/22 15:37 Pulse 92 H 03/07/22 15:37 Resp 18 03/07/22 15:37 BP 110/60 03/07/22 15:37 Pulse Ox 98 03/07/22 20:14
[2022-03-08] MEDS ORDERED: FUROSEMIDE 40 MG/4 ML INJ IV ONE ×2 (12:00→19:17)
[2022-03-08] MEDS: DOXEPIN 25 MG CAP PO SCH (21:14)
[2022-03-09] MEDS: HALOPERIDOL LACTATE 5 MG/1 ML INJ IM PRN ×2 (05:06→12:53)
[2022-03-09] MEDS: HEPARIN 5,000 UNIT/1 ML VIAL SUB-Q SCH ×3 (05:10→21:08)
[2022-03-09 05:37] LABS: Alanine Aminotransferase 284 units/L (7-56); Albumin 4.7 g/dL (3.9-5)
[2022-03-09 05:47] LABS: Bilirubin,Direct < 0.2 mg/dL (0-0.2)
[2022-03-09] MEDS: DIVALPROEX DR 250 MG TAB PO SCH ×3 (11:17→20:46)
--- NOTE | 2022-03-09 12:56 | Progress Note ---
Subjective - Reason for Consult Consult date: 03/09/22 Reason for consult: psychosis - Chief Complaint Chief complaint: The patient was seen today. He is calm and cooperative. He says he slept well. The patient shows me his iv. He says "I didn't pull it out." He denies SI/HI or hallucinations, but staff documents that the patient has been talking to himself and agitated needed prn meds. REVIEW OF SYSTEMS Constitutional: Negative for weight loss ENT: Negative for stridor Respiratory: Negative for cough or hemoptysis All other systems reviewed and are negative MENTAL STATUS EXAMINATION General Appearance and Behavior: Age appropriate, wearing appropriate clothes, cooperative, polite with questioning, good eye contact, pleasant Cooperation: cooperative Psychomotor Behavior: Psychomotor normal Mood: good Affect and affective range: congruent with stated affect Thought Process: Goal directed Thought Content: None Speech: Normal volume, Regular rate and rhythm Suicidal Ideation: Denies Homicidal Ideation: Denies Hallucination: Denies Delusions: None elicited Impulse Control: Normal Insight and Judgment: Normal Memory: Intact Attention:attentive Orientation: Alert and oriented Diagnoses: Schizophrenia Treatment Plan Increase Depakote DR 250mg po TID Increase Olanzapine 15mg po BID Continue Doxepin 25mg po qhs Agree with Lorazepam and Haldol prn orders Medical: per primary Disposition: recommend acute psychiatric inpatient treatment Will follow. Thanks Case staffed with Dr. Barragan Mental Status Exam - Vital signs Last Vital Signs Temp 97.9 F 03/09/22 03:26 Pulse 100 H 03/09/22 03:26 Resp 18 03/09/22 03:26 BP 125/75 03/09/22 03:26 Pulse Ox 100 03/09/22 03:26
[2022-03-09] MEDS ORDERED: SODIUM CHLORIDE 0.9% 1000 ML 1,000 ML IV ONE (18:00)
--- NOTE | 2022-03-09 18:08 | Progress Note ---
Assessment and Plan Assessment and plan: --Rhabdomyolysis creatinine kinase trending down, CK levels 3700 -2881 today Aggressive IV hydration, 250 mL of normal saline fluid bolus in addition to IV fluids 1 dose of IV Lasix, preserved renal function Input output monitoring, plenty of oral fluids -- LFT trending down; Continue IV hydration, monitor liver function tests Until her fluids -- Schizophrenia with psychosis psych following . Continue current management Patient 1013 status per psych --DVT prophylaxis SCD, ambulatory -- Full code status We will closely monitor the patient and adjust the management as needed Plan of care reviewed with the patient and his nurse. Continue to monitor CK levels, LFTs, and continue monitor clinically Patient is still 1013 status, industrial safety and health specialist at the bedside Patient is not medically stable due to rhabdomyolysis and transaminitis which are not getting better as expected as patient is refusing treatment with IV fluids Brief history and Hospital course: 21-year-old -[place] male with known history of schizophrenia presenting to the emergency room with changes in mental status. Upon arrival in the emergency room he became agitated and was given some sedation. Work-up in the emergency room, labs are significant for elevated creatinine kinase of 2654. Liver enzymes were also slightly elevated. CT scan of the head shows no focal mass, hemorrhage, hydrocephalus or acute large territorial infarct. Patient has been started on IV fluid normal saline and admitted for further mx. 02/27: -- Follow CPK level, encourage plenty of fluid intake, sitting at the bedside. Psych following, need inpatient care for psychiatric evaluation. 02/28: CPK remains elevated, cont to follow, iv fluid. patient refusing meds per documentation. need inpt care. with disorganized thoughts, very talkative. cont supportive care. sitter at bedside. 03/01: Patient requiring inpatient psych evaluation and management. Sitter at the bedside. Follow CPK level and wait for psych clearance for discharge. 03/02: CPK remians elevated, pt was agitated this am. psych following. follow CPK and LFT. 03/03; worsening CK and LFTs, increase IV fluids To 50 mL normal saline bolus in addition to IV fluids Preserved renal function 03/04 CK levels trending down today 2338, LFTs trending down 250 mL fluid bolus x1, IV Lasix x1 03/05 CK 1808 LFTs 111/ 209 03/07/2022; patient is refusing IV fluids and medications, rhabdomyolysis not improving Unable to clear medically for inpatient psych placement, discussed with the psych nurse practitioner For four-point restraints and some sedation during the daytime to get therapy 03/08; CK 1982, LFTs 133 and 244 Restraint for safety, 1013 status Continue IV fluids, additional 500 mL normal saline bolus followed by IV Lasix 40 mg Input output monitoring 03/09:CK 1633, AST 158 /ALT 284 Patient is confused agitated psych is following History Interval history: I have seen and examined the patient at the bedside Patient's chart and medications reviewed Patient is more alert and awake and cooperative Off restraints, calm and composed, no agitation or aggression 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 appropriately 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 Physical - Constitutional Vitals: Temp Pulse Resp BP Pulse Ox 97.9 F 100 H 18 125/75 95 03/09/22 03:26 03/09/22 03:26 03/09/22 03:26 03/09/22 03:26 03/09/22 08:00 General appearance: Present: no acute distress, well-nourished, other (Today patient is calm and composed) - EENT Eyes: Present: PERRL, EOM intact - Neck Neck: Present: supple, normal ROM - Respiratory Respiratory effort: normal Respiratory: bilateral: diminished, negative: rales, rhonchi, wheezing - Cardiovascular Rhythm: regular Heart Sounds: Present: S1 & S2 - Extremities Extremities: no ischemia, No edema - Abdominal General gastrointestinal: soft, non-tender, non-distended, normal bowel sounds - Integumentary Integumentary: Present: clear, warm - Psychiatric Psychiatric: cooperative, no agitated - Neurologic Neurologic: moves all extremities Results - Labs CBC & Chem 7: 02/27/22 04:12 03/05/22 13:27 Labs: Laboratory Last Values WBC 8.3 K/mm3 (4.5-11.0) 02/27/22 04:12 RBC 4.42 M/mm3 (3.65-5.03) 02/27/22 04:12 Hgb 13.4 gm/dl (11.8-15.2) 02/27/22 04:12 Hct 40.0 % (35.5-45.6) 02/27/22 04:12 MCV 91 fl (84-94) 02/27/22 04:12 MCH 30 pg (28-32) 02/27/22 04:12 MCHC 33 % (32-34) 02/27/22 04:12 RDW 13.3 % (13.2-15.2) 02/27/22 04:12 Plt Count 281 K/mm3 (140-440) 02/27/22 04:12 Lymph % (Auto) 25.8 % (13.4-35.0) 02/27/22 04:12 [place] % (Auto) 11.1 % (0.0-7.3) H 02/27/22 04:12 Eos % (Auto) 4.8 % (0.0-4.3) H 02/27/22 04:12 Baso % (Auto) 0.3 % (0.0-1.8) 02/27/22 04:12 Lymph # (Auto) 2.1 K/mm3 (1.2-5.4) 02/27/22 04:12 [place] # (Auto) 0.9 K/mm3 (0.0-0.8) H 02/27/22 04:12 Eos # (Auto) 0.4 K/mm3 (0.0-0.4) 02/27/22 04:12 Baso # (Auto) 0.0 K/mm3 (0.0-0.1) 02/27/22 04:12 Seg Neutrophils % 58.0 % (40.0-70.0) 02/27/22 04:12 Seg Neutrophils # 4.8 K/mm3 (1.8-7.7) 02/27/22 04:12 Sodium 141 mmol/L (137-145) 03/05/22 13:27 Potassium 4.2 mmol/L (3.6-5.0) 03/05/22 13:27 Chloride 106.2 mmol/L (98-107) 03/05/22 13:27 Carbon Dioxide 27 mmol/L (22-30) 03/05/22 13:27 Anion Gap 12 mmol/L 03/05/22 13:27 BUN 9 mg/dL (9-20) 03/05/22 13:27 Creatinine 0.8 mg/dL (0.8-1.3) 03/05/22 13:27 Estimated GFR > 60 ml/min 03/05/22 13:27 BUN/Creatinine Ratio 11 % 03/05/22 13:27 Glucose 93 mg/dL (75-100) 03/05/22 13:27 POC Glucose 146 mg/dL (70-105) H 03/02/22 02:28 Calcium 9.3 mg/dL (8.4-10.2) 03/05/22 13:27 Magnesium 1.70 mg/dL (1.7-2.3) 02/26/22 20:22 Total Bilirubin 0.30 mg/dL (0.1-1.2) 03/09/22 04:37 Direct Bilirubin < 0.2 mg/dL (0-0.2) 03/09/22 04:37 Indirect Bilirubin 0.1 mg/dL 03/09/22 04:37 AST 158 units/L (5-40) H 03/09/22 04:37 ALT 284 units/L (7-56) H 03/09/22 04:37 Alkaline Phosphatase 115 units/L (35-129) 03/09/22 04:37 Total Creatine Kinase 1633 units/L (55-170) H 03/09/22 04:37 Total Protein 7.7 g/dL (6.3-8.2) 03/09/22 04:37 Albumin 4.7 g/dL (3.9-5) 03/09/22 04:37 Albumin/Globulin Ratio 1.6 % 03/09/22 04:37 Urine Color Yellow (Yellow) 02/26/22 12:19 Urine Turbidity Clear (Clear) 02/26/22 12:19 Urine pH 6.5 (5.0-7.0) 02/26/22 12:19 Ur Specific [place] 1.020 (1.003-1.030) 02/26/22 12:19 Urine Protein <15 mg/dl mg/dL (Negative) 02/26/22 12:19 Urine Glucose (UA) Negative mg/dL (Negative) 02/26/22 12:19 Urine Ketones Negative mg/dL (Negative) 02/26/22 12:19 Urine Blood Negative (Negative) 02/26/22 12:19 Urine Nitrite Negative (Negative) 02/26/22 12:19 Ur Reducing Substances Not Reportable 02/26/22 12:19 Urine Bilirubin Negative (Negative) 02/26/22 12:19 Urine Ictotest Not Reportable 02/26/22 12:19 Urine Urobilinogen < 2.0 mg/dL (<2.0) 02/26/22 12:19 Ur Leukocyte Esterase Negative (Negative) 02/26/22 12:19 Urine WBC (Auto) 3.0 /HPF (0.0-6.0) 02/26/22 12:19 Urine RBC (Auto) 1.0 /HPF (0.0-6.0) 02/26/22 12:19 U Epithel Cells (Auto) < 1.0 /HPF (0-13.0) 02/26/22 12:19 Urine Mucus Few /HPF 02/26/22 12:19 Nasal Screen MRSA (PCR) Negative (Negative) 02/27/22 Unknown Salicylates < 0.3 mg/dL (2.8-20.0) L 02/26/22 17:31 Urine Opiates Screen Negative 02/26/22 12:19 Urine Methadone Screen Negative 02/26/22 12:19 Acetaminophen 5.0 ug/mL (10.0-30.0) L 02/26/22 17:31 Ur Barbiturates Screen Negative 02/26/22 12:19 Ur Phencyclidine Scrn Negative 02/26/22 12:19 Ur Amphetamines Screen Negative 02/26/22 12:19 U Benzodiazepines Scrn Positive 02/26/22 12:19 Urine Cocaine Screen Negative 02/26/22 12:19 U Marijuana (THC) Screen Negative 02/26/22 12:19 Drugs of Abuse Note Disclamer 02/26/22 12:19 Plasma/Serum Alcohol < 0.01 % (0-0.07) 02/26/22 17:28 Coronavirus (PCR) Negative (Negative) 02/27/22 09:30 Vincent/IV: Voiding Method Toilet Active Medications - Current Medications Current Medications: Generic Name Dose Route Start Last Admin Trade Name Freq PRN Reason Stop Dose Admin Acetaminophen 650 mg 02/26/22 22:16 03/01/22 10:23 Acetaminophen 325 Mg Tab PO 650 mg Q4H PRN Administration Pain MILD(1-3)/Fever >100.5/MI Divalproex Sodium 250 mg 03/09/22 14:00 03/09/22 15:[address] 250 Mg Tab PO 250 mg TID LUCILA Administration Doxepin HCl 25 mg 03/07/22 22:00 03/08/22 21:14 Doxepin 25 Mg Cap PO 25 mg QHS LUCILA Administration Furosemide 40 mg 03/09/22 22:00 Furosemide 40 Mg/4 Ml Inj IV 03/09/22 22:01 ONCE ONE Haloperidol Lactate 5 mg 02/27/22 13:50 03/09/22 12:53 Haloperidol Lactate 5 Mg/1 Ml Inj IM 5 mg Q6H PRN Administration Agitation Heparin Sodium (Porcine) 5,000 unit 02/27/22 06:00 03/09/22 15:24 Heparin 5,000 Unit/1 Ml Vial SUB-Q 5,000 unit Q8HR LUCILA Administration Sodium Chloride 1,000 mls @ 100 mls/hr 03/02/22 09:30 03/05/22 09:47 Nacl 0.9% 1000 Ml IV 100 mls/hr DIRECT LUCILA Administration Sodium Chloride 1,000 mls @ 999 mls/hr 03/09/22 18:00 Nacl 0.9% 1000 Ml IV 03/09/22 19:00 BOLUS ONE Lorazepam 2 mg 02/27/22 13:51 03/07/22 16:59 Lorazepam 2 Mg/Ml Vial IM 2 mg Q6H PRN Administration Agitation Magnesium Hydroxide 30 ml 02/26/22 22:16 03/01/22 21:30 Magnesium Hydroxide (Mom) Oral Liqd Udc PO 30 ml Q4H PRN Administration Constipation Morphine Sulfate 2 mg 02/26/22 22:16 03/04/22 11:36 Morphine 2 Mg/1 Ml Inj IV 2 mg Q4H PRN Administration Pain, Moderate (4-6) Morphine Sulfate 4 mg 02/26/22 22:16 Morphine 4 Mg/1 Ml Inj IV Q4H PRN Pain , Severe (7-10) Ondansetron HCl 4 mg 02/26/22 22:16 Ondansetron 4 Mg/2 Ml Inj IV Q8H PRN Nausea And Vomiting Sodium Chloride 10 ml 02/27/22 10:00 03/09/22 11:17 Sodium Chloride 0.9% 10 Ml Flush Syringe IV 10 ml BID LUCILA Administration Sodium Chloride 10 ml 02/26/22 22:16 Sodium Chloride 0.9% 10 Ml Flush Syringe IV PRN PRN LINE FLUSH Nutrition/Malnutrition Assess - Dietary Evaluation Nutrition/Malnutrition Findings: Nutrition Notes Start: 03/06/22 19:49 Freq: Status: Active Protocol: Document 03/06/22 19:49 STACY (Rec: 03/06/22 19:55 STACY [id number]) Nutrition Notes Need for Assessment generated from: LOS Initial or Follow up Assessment Other Pertinent Diagnosis Psuchosis, Schizophrenia, Rabdomyolysis, Transaminitis. Current Diet Regular Diet (since B 02/27). Labs/Tests 03/05: WNL. Pertinent Medications 03/06: Nutritionally unremarkable. 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 Weight Status Appropriate Subjective/Other Information RD consult for LOS assessment. Pt's PO intake of meals has been Good (100%) and well tolerated, according to ADL notes. Pt is on Room Air, O2 saturation @ 98%, according to Physical Assessment History notes. Percent of energy/protein needs met: Prescribed Regular Diet provides for energy/protein needs (2,289 Kcal/89 g) during LOS. Burn Absent Trauma Absent GI Symptoms None Food Allergy No Skin Integrity/Comment Assessment WNL. Current % PO Good (75-100%) Minimum of two criteria No Fluid Accumulation N/A Reduced Mental Health Program Specialist Strength N/A (non-severe) Protein-Calorie Malnutrition N\A #1 Nutrition Diagnosis No nutrition diagnosis at this time Is patient on ventilator? No Is Patient Ambulatory and/or Out of Bed Yes REE-([facility]-ambulatory/OOB) [ 2438.950 NUTR.MSJOOB] Kcal/Kg value to use for calculation 30 Approximate Energy Requirements Using 1836 kcal/Kg Calculation Used for Recommendations Kcal/kg Additional Notes Protein: 0.8-1 g/Kg ABW; 49-61 g/day. Fluids: 1 ml/Kcal, or as per MD. Nutrition Intervention Change Diet Order: Continue Regular Diet. Revisit per MD consult or patient Sign Off request: Additional Comments Continue monitoring food tolerance, %PO intake of meals , and BM.
[2022-03-09] MEDS: LORazepam 2 MG/ML VIAL IM PRN (20:46)
[2022-03-09] MEDS: DOXEPIN 25 MG CAP PO SCH (21:07)
[2022-03-09] MEDS ORDERED: FUROSEMIDE 40 MG/4 ML INJ IV ONE (22:00)
[2022-03-10 05:55] LABS: Alanine Aminotransferase 255 units/L (7-56); Albumin 4.3 g/dL (3.9-5)
[2022-03-10] MEDS: HEPARIN 5,000 UNIT/1 ML VIAL SUB-Q SCH ×4 (06:01→21:58)
[2022-03-10 06:09] LABS: Bilirubin,Direct < 0.2 mg/dL (0-0.2)
[2022-03-10] MEDS: LORazepam 2 MG/ML VIAL IM PRN (06:49)
[2022-03-10] MEDS ORDERED: SODIUM CHLORIDE 0.9% 1000 ML 1,000 ML IV ONE (09:04)
--- NOTE | 2022-03-10 09:06 | Progress Note ---
Assessment and Plan Assessment and plan: --Rhabdomyolysis creatinine kinase trending down, CK levels 3700 -2881 today Aggressive IV hydration, 250 mL of normal saline fluid bolus in addition to IV fluids 1 dose of IV Lasix, preserved renal function Input output monitoring, plenty of oral fluids Medically stable for discharge disposition per psych. -- LFT trending down; Continue IV hydration, monitor liver function tests Until her fluids -- Schizophrenia with psychosis psych following . Continue current management Patient 1013 status per psych --DVT prophylaxis SCD, ambulatory -- Full code status We will closely monitor the patient and adjust the management as needed Plan of care reviewed with the patient and his nurse. Continue to monitor CK levels, LFTs, and continue monitor clinically Patient is still 1013 status, industrial safety and health manager at the bedside Patient is not medically stable due to rhabdomyolysis and transaminitis which are not getting better as expected as patient is refusing treatment with IV fluids Brief history and Hospital course: 21-year-old -Maltese male with known history of schizophrenia presenting to the emergency room with changes in mental status. Upon arrival in the emergency room he became agitated and was given some sedation. Work-up in the emergency room, labs are significant for elevated creatinine kinase of 2654. Liver enzymes were also slightly elevated. CT scan of the head shows no focal mass, hemorrhage, hydrocephalus or acute large territorial infarct. Patient has been started on IV fluid normal saline and admitted for further mx. 02/27: -- Follow CPK level, encourage plenty of fluid intake, sitting at the bedside. Psych following, need inpatient care for psychiatric evaluation. 02/28: CPK remains elevated, cont to follow, iv fluid. patient refusing meds per documentation. need inpt care. with disorganized thoughts, very talkative. cont supportive care. sitter at bedside. 03/01: Patient requiring inpatient psych evaluation and management. Sitter at the bedside. Follow CPK level and wait for psych clearance for discharge. 03/02: CPK remians elevated, pt was agitated this am. psych following. follow CPK and LFT. 03/03; worsening CK and LFTs, increase IV fluids To 50 mL normal saline bolus in addition to IV fluids Preserved renal function 03/04 CK levels trending down today 2338, LFTs trending down 250 mL fluid bolus x1, IV Lasix x1 03/05 CK 1808 LFTs 111/ 209 03/07/2022; patient is refusing IV fluids and medications, rhabdomyolysis not improving Unable to clear medically for inpatient psych placement, discussed with the psych nurse practitioner For four-point restraints and some sedation during the daytime to get therapy 03/08; CK 1982, LFTs 133 and 244 Restraint for safety, 1013 status Continue IV fluids, additional 500 mL normal saline bolus followed by IV Lasix 40 mg Input output monitoring 03/09:CK 1633, AST 158 /ALT 284 Patient is confused agitated psych is following 03/10;[id number] AST 151, ALT 255 History Interval history: I have seen and examined the patient at the bedside Patient's chart and medications reviewed No new events reported by the nursing staff Alert and awake responding appropriately Vital signs noted Hospitalist Physical - Constitutional Vitals: Temp Pulse Resp BP Pulse Ox 97.3 F L 86 18 140/79 98 03/09/22 21:00 03/09/22 21:00 03/09/22 21:00 03/09/22 21:00 03/09/22 22:00 General appearance: Present: no acute distress, well-nourished, other (Today patient is calm and composed) - EENT Eyes: Present: PERRL, EOM intact - Neck Neck: Present: supple, normal ROM - Respiratory Respiratory effort: normal Respiratory: bilateral: diminished, negative: rales, rhonchi, wheezing - Cardiovascular Rhythm: regular Heart Sounds: Present: S1 & S2 - Extremities Extremities: no ischemia, No edema - Abdominal General gastrointestinal: soft, non-tender, non-distended, normal bowel sounds - Integumentary Integumentary: Present: clear, warm - Psychiatric Psychiatric: appropriate mood/affect, agitated - Neurologic Neurologic: CNII-XII intact, moves all extremities Results - Labs CBC & Chem 7: 02/27/22 04:12 03/05/22 13:27 Labs: Laboratory Last Values WBC 8.3 K/mm3 (4.5-11.0) 02/27/22 04:12 RBC 4.42 M/mm3 (3.65-5.03) 02/27/22 04:12 Hgb 13.4 gm/dl (11.8-15.2) 02/27/22 04:12 Hct 40.0 % (35.5-45.6) 02/27/22 04:12 MCV 91 fl (84-94) 02/27/22 04:12 MCH 30 pg (28-32) 02/27/22 04:12 MCHC 33 % (32-34) 02/27/22 04:12 RDW 13.3 % (13.2-15.2) 02/27/22 04:12 Plt Count 281 K/mm3 (140-440) 02/27/22 04:12 Lymph % (Auto) 25.8 % (13.4-35.0) 02/27/22 04:12 [place] % (Auto) 11.1 % (0.0-7.3) H 02/27/22 04:12 Eos % (Auto) 4.8 % (0.0-4.3) H 02/27/22 04:12 Baso % (Auto) 0.3 % (0.0-1.8) 02/27/22 04:12 Lymph # (Auto) 2.1 K/mm3 (1.2-5.4) 02/27/22 04:12 [place] # (Auto) 0.9 K/mm3 (0.0-0.8) H 02/27/22 04:12 Eos # (Auto) 0.4 K/mm3 (0.0-0.4) 02/27/22 04:12 Baso # (Auto) 0.0 K/mm3 (0.0-0.1) 02/27/22 04:12 Seg Neutrophils % 58.0 % (40.0-70.0) 02/27/22 04:12 Seg Neutrophils # 4.8 K/mm3 (1.8-7.7) 02/27/22 04:12 Sodium 141 mmol/L (137-145) 03/05/22 13:27 Potassium 4.2 mmol/L (3.6-5.0) 03/05/22 13:27 Chloride 106.2 mmol/L (98-107) 03/05/22 13:27 Carbon Dioxide 27 mmol/L (22-30) 03/05/22 13:27 Anion Gap 12 mmol/L 03/05/22 13:27 BUN 9 mg/dL (9-20) 03/05/22 13:27 Creatinine 0.8 mg/dL (0.8-1.3) 03/05/22 13:27 Estimated GFR > 60 ml/min 03/05/22 13:27 BUN/Creatinine Ratio 11 % 03/05/22 13:27 Glucose 93 mg/dL (75-100) 03/05/22 13:27 POC Glucose 146 mg/dL (70-105) H 03/02/22 02:28 Calcium 9.3 mg/dL (8.4-10.2) 03/05/22 13:27 Magnesium 1.70 mg/dL (1.7-2.3) 02/26/22 20:22 Total Bilirubin 0.30 mg/dL (0.1-1.2) 03/10/22 05:05 Direct Bilirubin < 0.2 mg/dL (0-0.2) 03/10/22 05:05 Indirect Bilirubin 0.1 mg/dL 03/10/22 05:05 AST 151 units/L (5-40) H 03/10/22 05:05 ALT 255 units/L (7-56) H 03/10/22 05:05 Alkaline Phosphatase 109 units/L (35-129) 03/10/22 05:05 Total Creatine Kinase 1480 units/L (55-170) H 03/10/22 05:06 Total Protein 7.3 g/dL (6.3-8.2) 03/10/22 05:05 Albumin 4.3 g/dL (3.9-5) 03/10/22 05:05 Albumin/Globulin Ratio 1.4 % 03/10/22 05:05 Urine Color Yellow (Yellow) 02/26/22 12:19 Urine Turbidity Clear (Clear) 02/26/22 12:19 Urine pH 6.5 (5.0-7.0) 02/26/22 12:19 Ur Specific [place] 1.020 (1.003-1.030) 02/26/22 12:19 Urine Protein <15 mg/dl mg/dL (Negative) 02/26/22 12:19 Urine Glucose (UA) Negative mg/dL (Negative) 02/26/22 12:19 Urine Ketones Negative mg/dL (Negative) 02/26/22 12:19 Urine Blood Negative (Negative) 02/26/22 12:19 Urine Nitrite Negative (Negative) 02/26/22 12:19 Ur Reducing Substances Not Reportable 02/26/22 12:19 Urine Bilirubin Negative (Negative) 02/26/22 12:19 Urine Ictotest Not Reportable 02/26/22 12:19 Urine Urobilinogen < 2.0 mg/dL (<2.0) 02/26/22 12:19 Ur Leukocyte Esterase Negative (Negative) 02/26/22 12:19 Urine WBC (Auto) 3.0 /HPF (0.0-6.0) 02/26/22 12:19 Urine RBC (Auto) 1.0 /HPF (0.0-6.0) 02/26/22 12:19 U Epithel Cells (Auto) < 1.0 /HPF (0-13.0) 02/26/22 12:19 Urine Mucus Few /HPF 02/26/22 12:19 Nasal Screen MRSA (PCR) Negative (Negative) 02/27/22 Unknown Salicylates < 0.3 mg/dL (2.8-20.0) L 02/26/22 17:31 Urine Opiates Screen Negative 02/26/22 12:19 Urine Methadone Screen Negative 02/26/22 12:19 Acetaminophen 5.0 ug/mL (10.0-30.0) L 02/26/22 17:31 Ur Barbiturates Screen Negative 02/26/22 12:19 Ur Phencyclidine Scrn Negative 02/26/22 12:19 Ur Amphetamines Screen Negative 02/26/22 12:19 U Benzodiazepines Scrn Positive 02/26/22 12:19 Urine Cocaine Screen Negative 02/26/22 12:19 U Marijuana (THC) Screen Negative 02/26/22 12:19 Drugs of Abuse Note Disclamer 02/26/22 12:19 Plasma/Serum Alcohol < 0.01 % (0-0.07) 02/26/22 17:28 Coronavirus (PCR) Negative (Negative) 02/27/22 09:30 Vincent/IV: Voiding Method Toilet Active Medications - Current Medications Current Medications: Generic Name Dose Route Start Last Admin Trade Name Freq PRN Reason Stop Dose Admin Acetaminophen 650 mg 02/26/22 22:16 03/01/22 10:23 Acetaminophen 325 Mg Tab PO 650 mg Q4H PRN Administration Pain MILD(1-3)/Fever >100.5/MI Divalproex Sodium 250 mg 03/09/22 14:00 03/09/22 20:[address] 250 Mg Tab PO 250 mg TID LUCILA Administration Doxepin HCl 25 mg 03/07/22 22:00 03/09/22 21:07 Doxepin 25 Mg Cap PO 25 mg QHS LUCILA Administration Furosemide 40 mg 03/10/22 11:00 Furosemide 40 Mg/4 Ml Inj IV 03/10/22 11:01 ONCE ONE Haloperidol Lactate 5 mg 02/27/22 13:50 03/09/22 12:53 Haloperidol Lactate 5 Mg/1 Ml Inj IM 5 mg Q6H PRN Administration Agitation Heparin Sodium (Porcine) 5,000 unit 02/27/22 06:00 03/10/22 06:01 Heparin 5,000 Unit/1 Ml Vial SUB-Q 5,000 unit Q8HR LUCILA Administration Sodium Chloride 1,000 mls @ 100 mls/hr 03/02/22 09:30 03/05/22 09:47 Nacl 0.9% 1000 Ml IV 100 mls/hr DIRECT LUCILA Administration Sodium Chloride 1,000 mls @ 999 mls/hr 03/10/22 09:04 Nacl 0.9% 1000 Ml IV 03/10/22 10:04 BOLUS ONE Lorazepam 2 mg 02/27/22 13:51 03/10/22 06:49 Lorazepam 2 Mg/Ml Vial IM 2 mg Q6H PRN Administration Agitation Magnesium Hydroxide 30 ml 02/26/22 22:16 03/01/22 21:30 Magnesium Hydroxide (Mom) Oral Liqd Udc PO 30 ml Q4H PRN Administration Constipation Morphine Sulfate 2 mg 02/26/22 22:16 03/04/22 11:36 Morphine 2 Mg/1 Ml Inj IV 2 mg Q4H PRN Administration Pain, Moderate (4-6) Morphine Sulfate 4 mg 02/26/22 22:16 Morphine 4 Mg/1 Ml Inj IV Q4H PRN Pain , Severe (7-10) Ondansetron HCl 4 mg 02/26/22 22:16 Ondansetron 4 Mg/2 Ml Inj IV Q8H PRN Nausea And Vomiting Sodium Chloride 10 ml 02/27/22 10:00 03/09/22 21:07 Sodium Chloride 0.9% 10 Ml Flush Syringe IV 10 ml BID LUCILA Administration Sodium Chloride 10 ml 02/26/22 22:16 Sodium Chloride 0.9% 10 Ml Flush Syringe IV PRN PRN LINE FLUSH Nutrition/Malnutrition Assess - Dietary Evaluation Nutrition/Malnutrition Findings: Nutrition Notes Start: 03/06/22 19:49 Freq: Status: Active Protocol: Document 03/06/22 19:49 STACY (Rec: 03/06/22 19:55 STACY [id number]) Nutrition Notes Need for Assessment generated from: LOS Initial or Follow up Assessment Other Pertinent Diagnosis Psuchosis, Schizophrenia, Rabdomyolysis, Transaminitis. Current Diet Regular Diet (since B 02/27). Labs/Tests 03/05: WNL. Pertinent Medications 03/06: Nutritionally unremarkable. 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 Weight Status Appropriate Subjective/Other Information RD consult for LOS assessment. Pt's PO intake of meals has been Good (100%) and well tolerated, according to ADL notes. Pt is on Room Air, O2 saturation @ 98%, according to Physical Assessment History notes. Percent of energy/protein needs met: Prescribed Regular Diet provides for energy/protein needs (2,289 Kcal/89 g) during LOS. Burn Absent Trauma Absent GI Symptoms None Food Allergy No Skin Integrity/Comment Assessment WNL. Current % PO Good (75-100%) Minimum of two criteria No Fluid Accumulation N/A Reduced Pipe Fitter Soft Copper Strength N/A (non-severe) Protein-Calorie Malnutrition N\A #1 Nutrition Diagnosis No nutrition diagnosis at this time Is patient on ventilator? No Is Patient Ambulatory and/or Out of Bed Yes REE-([facility]-ambulatory/OOB) [ 8.950 NUTR.MSJOOB] Kcal/Kg value to use for calculation 30 Approximate Energy Requirements Using 1836 kcal/Kg Calculation Used for Recommendations Kcal/kg Additional Notes Protein: 0.8-1 g/Kg ABW; 49-61 g/day. Fluids: 1 ml/Kcal, or as per MD. Nutrition Intervention Change Diet Order: Continue Regular Diet. Revisit per MD consult or patient Sign Off request: Additional Comments Continue monitoring food tolerance, %PO intake of meals , and BM.
[2022-03-10] MEDS: DIVALPROEX DR 250 MG TAB PO SCH (10:44)
[2022-03-10] MEDS ORDERED: FUROSEMIDE 40 MG/4 ML INJ IV NR (11:00)
--- NOTE | 2022-03-10 11:18 | Progress Note ---
Subjective - Reason for Consult Consult date: 03/10/22 Reason for consult: psychosis - Chief Complaint Chief complaint: The patient was seen today. He is pacing in his room and talking out loud to himself. He says "I'm talking to God. I'm not talking to myself." He says "I feel good. I feel well." He denies SI/HI. The nurse caring for the patient today states he has been pacing, agitated and psychotic. There is no contact information for family or collateral. The patient states he lives with his aunt but did not know the number. Spoke with the nurse about contact info. She states they do not have any family info on the patient except that he lives with his aunt. Will continue to treat and recommend acute psychiatric inpatient to stabilize the patient. REVIEW OF SYSTEMS Constitutional: Negative for weight loss ENT: Negative for stridor Respiratory: Negative for cough or hemoptysis All other systems reviewed and are negative MENTAL STATUS EXAMINATION General Appearance and Behavior: Age appropriate, wearing appropriate clothes, cooperative, polite with questioning, good eye contact, pleasant Cooperation: cooperative Psychomotor Behavior: Psychomotor normal Mood: good Affect and affective range: congruent with stated affect Thought Process: Goal directed Thought Content: None Speech: Normal volume, Regular rate and rhythm Suicidal Ideation: Denies Homicidal Ideation: Denies Hallucination: Denies Delusions: None elicited Impulse Control: Normal Insight and Judgment: Normal Memory: Intact Attention:attentive Orientation: Alert and oriented Diagnoses: Schizophrenia Treatment Plan Increase Depakote DR 500mg po BID Increase Olanzapine 20mg po BID Start Klonopin 0.25mg po BID x 3 days Agree with Lorazepam and Haldol prn orders Medical: per primary Disposition: recommend acute psychiatric inpatient treatment Will follow. Thanks Case staffed with Dr. Barragan Mental Status Exam - Vital signs Last Vital Signs Temp 97.3 F L 03/09/22 21:00 Pulse 86 03/09/22 21:00 Resp 18 03/09/22 21:00 BP 140/79 03/09/22 21:00 Pulse Ox 98 03/09/22 22:00
[2022-03-10] MEDS: clonazePAM 0.5 MG TAB PO SCH ×2 (16:00→23:52)
[2022-03-10] MEDS: DOXEPIN 25 MG CAP PO SCH (21:34)
[2022-03-10] MEDS: DIVALPROEX DR 500 MG TAB PO SCH (21:34)
[2022-03-11] MEDS: HEPARIN 5,000 UNIT/1 ML VIAL SUB-Q SCH ×3 (05:11→21:10)
[2022-03-11 06:11] LABS: Alanine Aminotransferase 191 units/L (7-56); Albumin 4.2 g/dL (3.9-5)
[2022-03-11 06:13] LABS: Bilirubin,Direct < 0.2 mg/dL (0-0.2)
[2022-03-11] MEDS: clonazePAM 0.5 MG TAB PO SCH ×2 (09:31→21:10)
[2022-03-11] MEDS: DIVALPROEX DR 500 MG TAB PO SCH ×2 (09:31→21:10)
[2022-03-11] MEDS ORDERED: FUROSEMIDE 40 MG/4 ML INJ IV ONE (10:50)
[2022-03-11] MEDS ORDERED: SODIUM CHLORIDE 0.9% 1000 ML 1,000 ML IV ONE (10:50)
--- NOTE | 2022-03-11 11:24 | Progress Note ---
Subjective - Reason for Consult Consult date: 03/11/22 Reason for consult: psychosis - Chief Complaint Chief complaint: The patient was seen today. He is asking why he's still in the hospital. The patient says he's not from [place] but lives in [place]. I ask him if he has any contact info. The patient blurts out a series of numbers; [phone], [phone]. He says "those are sports numbers." He then starts mumbling out loud. The patient denies hallucinations. He insists that he talks to God. He says "I don't talk to nobody but God." He denies SI/HI. The nurse states the patient has been constantly pacing and talking to himself. REVIEW OF SYSTEMS Constitutional: Negative for weight loss ENT: Negative for stridor Respiratory: Negative for cough or hemoptysis All other systems reviewed and are negative MENTAL STATUS EXAMINATION General Appearance and Behavior: Age appropriate, wearing appropriate clothes, cooperative, polite with questioning, good eye contact, pleasant Cooperation: cooperative Psychomotor Behavior: Psychomotor normal Mood: good Affect and affective range: congruent with stated affect Thought Process: Goal directed Thought Content: None Speech: Normal volume, Regular rate and rhythm Suicidal Ideation: Denies Homicidal Ideation: Denies Hallucination: Denies Delusions: None elicited Impulse Control: Normal Insight and Judgment: Normal Memory: Intact Attention:attentive Orientation: Alert and oriented Diagnoses: Schizophrenia Treatment Plan Depakote DR 500mg po BID Olanzapine 20mg po BID Klonopin 0.25mg po BID x 3 days Agree with Lorazepam and Haldol prn orders Medical: per primary Disposition: recommend acute psychiatric inpatient treatment Will follow. Thanks Case staffed with Dr. Barragan Mental Status Exam - Vital signs Last Vital Signs Temp 98.7 F 03/10/22 17:38 Pulse 119 H 03/10/22 17:38 Resp 20 03/10/22 17:38 BP 118/57 03/10/22 17:38 Pulse Ox 98 03/11/22 10:00
[2022-03-11] MEDS: HALOPERIDOL LACTATE 5 MG/1 ML INJ IM PRN (12:12)
[2022-03-11] MEDS: LORazepam 2 MG/ML VIAL IM PRN ×2 (12:13→23:46)
--- NOTE | 2022-03-11 15:43 | Progress Note ---
Assessment and Plan Assessment and plan: --Rhabdomyolysis creatinine kinase trending down, CK levels 3700 -2881 today Aggressive IV hydration, 250 mL of normal saline fluid bolus in addition to IV fluids 1 dose of IV Lasix, preserved renal function Input output monitoring, plenty of oral fluids Medically stable for discharge disposition per psych. -- LFT trending down; Continue IV hydration, monitor liver function tests Until her fluids -- Schizophrenia with psychosis psych following . Continue current management Patient 1013 status per psych --DVT prophylaxis SCD, ambulatory -- Full code status We will closely monitor the patient and adjust the management as needed Plan of care reviewed with the patient and his nurse. Continue to monitor CK levels, LFTs, and continue monitor clinically Patient is still 1013 status, water safety teacher at the bedside Patient is not medically stable due to rhabdomyolysis and transaminitis which are not getting better as expected as patient is refusing treatment with IV fluids Brief history and Hospital course: 21-year-old -English male with known history of schizophrenia presenting to the emergency room with changes in mental status. Upon arrival in the emergency room he became agitated and was given some sedation. Work-up in the emergency room, labs are significant for elevated creatinine kinase of 2654. Liver enzymes were also slightly elevated. CT scan of the head shows no focal mass, hemorrhage, hydrocephalus or acute large territorial infarct. Patient has been started on IV fluid normal saline and admitted for further mx. 02/27: -- Follow CPK level, encourage plenty of fluid intake, sitting at the bedside. Psych following, need inpatient care for psychiatric evaluation. 02/28: CPK remains elevated, cont to follow, iv fluid. patient refusing meds per documentation. need inpt care. with disorganized thoughts, very talkative. cont supportive care. sitter at bedside. 03/01: Patient requiring inpatient psych evaluation and management. Sitter at the bedside. Follow CPK level and wait for psych clearance for discharge. 03/02: CPK remians elevated, pt was agitated this am. psych following. follow CPK and LFT. 03/03; worsening CK and LFTs, increase IV fluids To 50 mL normal saline bolus in addition to IV fluids Preserved renal function 03/04 CK levels trending down today 2338, LFTs trending down 250 mL fluid bolus x1, IV Lasix x1 03/05 CK 1808 LFTs 111/ 209 03/07/2022; patient is refusing IV fluids and medications, rhabdomyolysis not improving Unable to clear medically for inpatient psych placement, discussed with the psych nurse practitioner For four-point restraints and some sedation during the daytime to get therapy 03/08; CK 1982, LFTs 133 and 244 Restraint for safety, 1013 status Continue IV fluids, additional 500 mL normal saline bolus followed by IV Lasix 40 mg Input output monitoring 03/09:CK 1633, AST 158 /ALT 284 Patient is confused agitated psych is following 03/10;[id number] AST 151, ALT 255 03/11/2022 CK1 444, AST ALT trending down Patient feels better no new complaints Medically cleared for discharge Disposition per psych History Interval history: Seen and examined the patient at the bedside Patient's chart and medications reviewed she is calm and composed not agitated or aggressive enamel dipper in the room Anxious to go home, refusing IV fluids vital signs noted Hospitalist Physical - Constitutional Vitals: Temp Pulse Resp BP Pulse Ox 98.0 F 104 H 18 125/65 98 03/11/22 11:08 03/11/22 11:08 03/11/22 11:08 03/11/22 11:08 03/11/22 11:08 General appearance: Present: no acute distress, well-nourished, other (Today pat ient is calm and composed) - EENT Eyes: Present: PERRL, EOM intact - Neck Neck: Present: supple, normal ROM - Respiratory Respiratory effort: normal Respiratory: bilateral: diminished, negative: rales, rhonchi, wheezing - Cardiovascular Rhythm: regular Heart Sounds: Present: S1 & S2 - Extremities Extremities: no ischemia, No edema - Abdominal General gastrointestinal: soft, non-tender, non-distended, normal bowel sounds - Integumentary Integumentary: Present: clear, warm - Psychiatric Psychiatric: appropriate mood/affect, cooperative - Neurologic Neurologic: moves all extremities Results - Labs CBC & Chem 7: 02/27/22 04:12 03/05/22 13:27 Labs: Laboratory Last Values WBC 8.3 K/mm3 (4.5-11.0) 02/27/22 04:12 RBC 4.42 M/mm3 (3.65-5.03) 02/27/22 04:12 Hgb 13.4 gm/dl (11.8-15.2) 02/27/22 04:12 Hct 40.0 % (35.5-45.6) 02/27/22 04:12 MCV 91 fl (84-94) 02/27/22 04:12 MCH 30 pg (28-32) 02/27/22 04:12 MCHC 33 % (32-34) 02/27/22 04:12 RDW 13.3 % (13.2-15.2) 02/27/22 04:12 Plt Count 281 K/mm3 (140-440) 02/27/22 04:12 Lymph % (Auto) 25.8 % (13.4-35.0) 02/27/22 04:12 [place] % (Auto) 11.1 % (0.0-7.3) H 02/27/22 04:12 Eos % (Auto) 4.8 % (0.0-4.3) H 02/27/22 04:12 Baso % (Auto) 0.3 % (0.0-1.8) 02/27/22 04:12 Lymph # (Auto) 2.1 K/mm3 (1.2-5.4) 02/27/22 04:12 [place] # (Auto) 0.9 K/mm3 (0.0-0.8) H 02/27/22 04:12 Eos # (Auto) 0.4 K/mm3 (0.0-0.4) 02/27/22 04:12 Baso # (Auto) 0.0 K/mm3 (0.0-0.1) 02/27/22 04:12 Seg Neutrophils % 58.0 % (40.0-70.0) 02/27/22 04:12 Seg Neutrophils # 4.8 K/mm3 (1.8-7.7) 02/27/22 04:12 Sodium 141 mmol/L (137-145) 03/05/22 13:27 Potassium 4.2 mmol/L (3.6-5.0) 03/05/22 13:27 Chloride 106.2 mmol/L (98-107) 03/05/22 13:27 Carbon Dioxide 27 mmol/L (22-30) 03/05/22 13:27 Anion Gap 12 mmol/L 03/05/22 13:27 BUN 9 mg/dL (9-20) 03/05/22 13:27 Creatinine 0.8 mg/dL (0.8-1.3) 03/05/22 13:27 Estimated GFR > 60 ml/min 03/05/22 13:27 BUN/Creatinine Ratio 11 % 03/05/22 13:27 Glucose 93 mg/dL (75-100) 03/05/22 13:27 POC Glucose 146 mg/dL (70-105) H 03/02/22 02:28 Calcium 9.3 mg/dL (8.4-10.2) 03/05/22 13:27 Magnesium 1.70 mg/dL (1.7-2.3) 02/26/22 20: Total Bilirubin 0.30 mg/dL (0.1-1.2) 03/11/22 05:30 Direct Bilirubin < 0.2 mg/dL (0-0.2) 03/11/22 05:30 Indirect Bilirubin 0.1 mg/dL 03/11/22 05:30 AST 70 units/L (5-40) H 03/11/22 05:30 ALT 191 units/L (7-56) H 03/11/22 05:30 Alkaline Phosphatase 99 units/L (35-129) 03/11/22 05:30 Total Creatine Kinase 1444 units/L (55-170) H 03/11/22 05:30 Total Protein 7.3 g/dL (6.3-8.2) 03/11/22 05:30 Albumin 4.2 g/dL (3.9-5) 03/11/22 05:30 Albumin/Globulin Ratio 1.4 % 03/11/22 05:30 Urine Color Yellow (Yellow) 02/26/22 12:19 Urine Turbidity Clear (Clear) 02/26/22 12:19 Urine pH 6.5 (5.0-7.0) 02/26/22 12:19 Ur Specific [place] 1.020 (1.003-1.030) 02/26/22 12:19 Urine Protein <15 mg/dl mg/dL (Negative) 02/26/22 12:19 Urine Glucose (UA) Negative mg/dL (Negative) 02/26/22 12:19 Urine Ketones Negative mg/dL (Negative) 02/26/22 12:19 Urine Blood Negative (Negative) 02/26/22 12:19 Urine Nitrite Negative (Negative) 02/26/22 12:19 Ur Reducing Substances Not Reportable 02/26/22 12:19 Urine Bilirubin Negative (Negative) 02/26/22 12:19 Urine Ictotest Not Reportable 02/26/22 12:19 Urine Urobilinogen < 2.0 mg/dL (<2.0) 02/26/22 12:19 Ur Leukocyte Esterase Negative (Negative) 02/26/22 12:19 Urine WBC (Auto) 3.0 /HPF (0.0-6.0) 02/26/22 12:19 Urine RBC (Auto) 1.0 /HPF (0.0-6.0) 02/26/22 12:19 U Epithel Cells (Auto) < 1.0 /HPF (0-13.0) 02/26/22 12:19 Urine Mucus Few /HPF 02/26/22 12:19 Nasal Screen MRSA (PCR) Negative (Negative) 02/27/22 Unknown Salicylates < 0.3 mg/dL (2.8-20.0) L 02/26/22 17:31 Urine Opiates Screen Negative 02/26/22 12:19 Urine Methadone Screen Negative 02/26/22 12:19 Acetaminophen 5.0 ug/mL (10.0-30.0) L 02/26/22 17:31 Ur Barbiturates Screen Negative 02/26/22 12:19 Ur Phencyclidine Scrn Negative 02/26/22 12:19 Ur Amphetamines Screen Negative 02/26/22 12:19 U Benzodiazepines Scrn Positive 02/26/22 12:19 Urine Cocaine Screen Negative 02/26/22 12:19 U Marijuana (THC) Screen Negative 02/26/22 12:19 Drugs of Abuse Note Disclamer 02/26/22 12:19 Plasma/Serum Alcohol < 0.01 % (0-0.07) 02/26/22 17:28 Coronavirus (PCR) Negative (Negative) 02/27/22 09:30 Vincent/IV: Voiding Method Toilet Active Medications - Current Medications Current Medications: Generic Name Dose Route Start Last Admin Trade Name Freq PRN Reason Stop Dose Admin Acetaminophen 650 mg 02/26/22 22:16 03/01/22 10:23 Acetaminophen 325 Mg Tab PO 650 mg Q4H PRN Administration Pain MILD(1-3)/Fever >100.5/MI Clonazepam 0.25 mg 03/10/22 12:00 03/11/22 09:31 Clonazepam 0.5 Mg Tab PO 03/13/22 06:00 0.25 mg BID LUCILA Administration Divalproex Sodium 500 mg 03/10/22 22:00 03/11/22 09:[address] 500 Mg Tab PO 500 mg BID LUCILA Administration Doxepin HCl 25 mg 03/07/22 22:00 03/10/22 21:34 Doxepin 25 Mg Cap PO 25 mg QHS LUCILA Administration Haloperidol Lactate 5 mg 02/27/22 13:50 03/11/22 12:12 Haloperidol Lactate 5 Mg/1 Ml Inj IM 5 mg Q6H PRN Administration Agitation Heparin Sodium (Porcine) 5,000 unit 02/27/22 06:00 03/11/22 15:12 Heparin 5,000 Unit/1 Ml Vial SUB-Q 5,000 unit Q8HR LUCILA Administration Sodium Chloride 1,000 mls @ 100 mls/hr 03/02/22 09:30 03/05/22 09:47 Nacl 0.9% 1000 Ml IV 100 mls/hr DIRECT LUCILA Administration Lorazepam 2 mg 02/27/22 13:51 03/11/22 12:13 Lorazepam 2 Mg/Ml Vial IM 2 mg Q6H PRN Administration Agitation Magnesium Hydroxide 30 ml 02/26/22 22:16 03/01/22 21:30 Magnesium Hydroxide (Mom) Oral Liqd Udc PO 30 ml Q4H PRN Administration Constipation Morphine Sulfate 2 mg 02/26/22 22:16 03/04/22 11:36 Morphine 2 Mg/1 Ml Inj IV 2 mg Q4H PRN Administration Pain, Moderate (4-6) Morphine Sulfate 4 mg 02/26/22 22:16 Morphine 4 Mg/1 Ml Inj IV Q4H PRN Pain , Severe (7-10) Olanzapine 20 mg 03/10/22 12:00 03/11/22 09:31 Olanzapine 10 Mg Tab PO 20 mg QDAY LUCILA Administration Ondansetron HCl 4 mg 02/26/22 22:16 Ondansetron 4 Mg/2 Ml Inj IV Q8H PRN Nausea And Vomiting Sodium Chloride 10 ml 02/27/22 10:00 03/11/22 09:33 Sodium Chloride 0.9% 10 Ml Flush Syringe IV 10 ml BID LUCILA Administration Sodium Chloride 10 ml 02/26/22 22:16 Sodium Chloride 0.9% 10 Ml Flush Syringe IV PRN PRN LINE FLUSH Nutrition/Malnutrition Assess - Dietary Evaluation Nutrition/Malnutrition Findings: Nutrition Notes Start: 03/06/22 19:49 Freq: Status: Active Protocol: Document 03/06/22 19:49 STACY (Rec: 03/06/22 19:55 STACY [id number]) Nutrition Notes Need for Assessment generated from: LOS Initial or Follow up Assessment Other Pertinent Diagnosis Psuchosis, Schizophrenia, Rabdomyolysis, Transaminitis. Current Diet Regular Diet (since B 02/27). Labs/Tests 03/05: WNL. Pertinent Medications 03/06: Nutritionally unremarkable. Height 5 ft 8 in Weight 61.2 kg [place] Body Weight (kg) 70.00 BMI 20.5 Intake Prior to Admission Good Weight change and time frame Pt denies having loss body weight [employer]. Weight Status Appropriate Subjective/Other Information RD consult for LOS assessment. Pt's PO intake of meals has been Good (100%) and well tolerated, according to ADL notes. Pt is on Room Air, O2 saturation @ 98%, according to Physical Assessment History notes. Percent of energy/protein needs met: Prescribed Regular Diet provides for energy/protein needs (2,289 Kcal/89 g) during LOS. Burn Absent Trauma Absent GI Symptoms None Food Allergy No Skin Integrity/Comment Assessment WNL. Current % PO Good (75-100%) Minimum of two criteria No Fluid Accumulation N/A Reduced Buckle Strap Puncher Strength N/A (non-severe) Protein-Calorie Malnutrition N\A #1 Nutrition Diagnosis No nutrition diagnosis at this time Is patient on ventilator? No Is Patient Ambulatory and/or Out of Bed Yes REE-([facility]-ambulatory/OOB) [ 7455.950 [id number]] Kcal/Kg value to use for calculation 30 Approximate Energy Requirements Using 1836 kcal/Kg Calculation Used for Recommendations Kcal/kg Additional Notes Protein: 0.8-1 g/Kg ABW; 49-61 g/day. Fluids: 1 ml/Kcal, or as per MD. Nutrition Intervention Change Diet Order: Continue Regular Diet. Revisit per MD consult or patient Sign Off request: Additional Comments Continue monitoring food tolerance, %PO intake of meals , and BM.
[2022-03-11] MEDS: DOXEPIN 25 MG CAP PO SCH (21:10)
[2022-03-12] MEDS: HEPARIN 5,000 UNIT/1 ML VIAL SUB-Q SCH ×3 (05:44→22:57)
[2022-03-12 06:18] LABS: Alanine Aminotransferase 165 units/L (7-56); Albumin 4.4 g/dL (3.9-5); Bilirubin,Direct < 0.2 mg/dL (0-0.2)
[2022-03-12] MEDS ORDERED: FUROSEMIDE 40 MG/4 ML INJ IV SCH (08:41)
[2022-03-12] MEDS: clonazePAM 0.5 MG TAB PO SCH ×3 (09:37→22:58)
[2022-03-12] MEDS: DIVALPROEX DR 500 MG TAB PO SCH ×2 (09:37→22:58)
[2022-03-12] MEDS ORDERED: SODIUM CHLORIDE 0.9% 1000 ML 1,000 ML IV ONE (10:00)
--- NOTE | 2022-03-12 10:55 | Progress Note ---
Subjective - Reason for Consult Consult date: 03/12/22 Reason for consult: psychosis - Chief Complaint Chief complaint: The patient was seen today. He says he's doing well. He is talking to himself, but states he's talking to God. He denies SI/HI. The sitter at bedside says the patient has been hyperactive; pacing, running and talking to himself nonstop. I contacted the patient's sister, Jesusita at [phone] and obtained collateral and gave her progress on the patient. She says the patient was totally normal on up until about three years ago. She says since then, the patient has these psychotic breaks were he starts pacing, hallucinating, not eating, drinking or sleeping. She says the patient does impulsive things jumps in vehicles with people, and sleeps outside when he has these "breaks." She says he is normally admitted into a psychiatric facility for awhile when this happens. She says but the medication they had the patient on was making him "shake like a seizure and drool all the time." Jesusita says the patient has no family in [place]. She says their mother was there but has moved. Please give the sister a call with any updates or concerns. Will continue to recommend inpatient psychiatric inpatient treatment. REVIEW OF SYSTEMS Constitutional: Negative for weight loss ENT: Negative for stridor Respiratory: Negative for cough or hemoptysis All other systems reviewed and are negative MENTAL STATUS EXAMINATION General Appearance and Behavior: Age appropriate, wearing appropriate clothes, cooperative, polite with questioning, good eye contact, pleasant Cooperation: cooperative Psychomotor Behavior: Psychomotor normal Mood: good Affect and affective range: congruent with stated affect Thought Process: Goal directed Thought Content: None Speech: Normal volume, Regular rate and rhythm Suicidal Ideation: Denies Homicidal Ideation: Denies Hallucination: Denies Delusions: None elicited Impulse Control: Normal Insight and Judgment: Normal Memory: Intact Attention:attentive Orientation: Alert and oriented Diagnoses: Schizophrenia Treatment Plan Depakote DR 500mg po BID Olanzapine 20mg po BID Increase Klonopin 0.5mg po BID x 3 days Agree with Lorazepam and Haldol prn orders Medical: per primary Disposition: recommend acute psychiatric inpatient treatment Will follow. Thanks Case staffed with Dr. Barragan Mental Status Exam - Vital signs Last Vital Signs Temp 97.7 F 03/12/22 05:31 Pulse 81 03/12/22 05:31 Resp 18 03/12/22 05:31 BP 123/60 03/12/22 05:31 Pulse Ox 98 03/12/22 05:31
[2022-03-12] MEDS: LORazepam 2 MG/ML VIAL IM PRN (14:59)
--- NOTE | 2022-03-12 15:48 | Progress Note ---
Assessment and Plan Assessment and plan: --Rhabdomyolysis creatinine kinase trending down, CK levels 3700 -2670-8097 today Aggressive IV hydration, 250 mL of normal saline fluid bolus in addition to IV fluids 1 dose of IV Lasix, preserved renal function Input output monitoring, plenty of oral fluids Medically stable for discharge disposition per psych. -- LFT trending down; Continue IV hydration, monitor liver function tests Transaminases trending down -- Schizophrenia with psychosis psych following . Continue current management Patient 1013 status per psych --DVT prophylaxis SCD, ambulatory -- Full code status We will closely monitor the patient and adjust the management as needed Plan of care reviewed with the patient and his nurse. Continue to monitor CK levels, LFTs, and continue monitor clinically Patient is still 1013 status, safety tech at the bedside Patient is not medically stable due to rhabdomyolysis and transaminitis which are not getting better as expected as patient is refusing treatment with IV fluids Brief history and Hospital course: 21-year-old -[place] male with known history of schizophrenia presenting to the emergency room with changes in mental status. Upon arrival in the emergency room he became agitated and was given some sedation. Work-up in the emergency room, labs are significant for elevated creatinine kinase of 2654. Liver enzymes were also slightly elevated. CT scan of the head shows no focal mass, hemorrhage, hydrocephalus or acute large territorial infarct. Patient has been started on IV fluid normal saline and admitted for further mx. 02/27:Follow CPK level, encourage plenty of fluid intake, sitting at the bedside. Psych following, need inpatient care for psychiatric evaluation. 02/28: CPK remains elevated, cont to follow, iv fluid. patient refusing meds per documentation. need inpt care. with disorganized thoughts, very talkative. cont supportive care. sitter at bedside. 03/01: Patient requiring inpatient psych evaluation and management. Sitter at the bedside. Follow CPK level and wait for psych clearance for discharge. 03/02: CPK remians elevated, pt was agitated this am. psych following. follow CPK and LFT. 03/03; worsening CK and LFTs, increase IV fluids To 50 mL normal saline bolus in addition to IV fluids Preserved renal function 03/04 CK levels trending down today 2338, LFTs trending down 250 mL fluid bolus x1, IV Lasix x1 7/14 CK 1808,LFTs 111/ 209 03/07/2022; patient is refusing IV fluids and medications, rhabdomyolysis not improving Unable to clear medically for inpatient psych placement, discussed with the psych nurse practitioner For four-point restraints and some sedation during the daytime to get therapy 03/08; CK 1982, LFTs 133 and 244 Restraint for safety, 1013 status Continue IV fluids, additional 500 mL normal saline bolus followed by IV Lasix 40 mg Input output monitoring 03/09:CK 1633, AST 158 /ALT 284 Patient is confused agitated psych is following 03/10;[id number], AST 151, ALT 255 03/11/2022 CK1 444, AST ALT trending down Patient feels better no new complaints Medically cleared for discharge Disposition per psych 03/12/2022; CK 1576, LFTs 63/165 Haldol as needed for agitation, psych following Medically cleared for discharge Disposition: per psych History Interval history: I have seen and examined the patient at the bedside Patient is more restless and agitated today However not violent or aggressive inventory management specialist in the room Vital signs noted Hospitalist Physical - Constitutional Vitals: Temp Pulse Resp BP Pulse Ox 98.0 F 99 H 16 123/58 99 03/12/22 11:44 03/12/22 11:44 03/12/22 11:44 03/12/22 11:44 03/12/22 11:44 General appearance: Present: mild distress, well-nourished, other (Agitated and restless/not violent or aggressive) - EENT Eyes: Present: PERRL, EOM intact - Neck Neck: Present: supple, normal ROM - Respiratory Respiratory effort: normal Respiratory: bilateral: diminished, negative: rales, rhonchi, wheezing - Cardiovascular Rhythm: regular Heart Sounds: Present: S1 & S2 - Extremities Extremities: no ischemia, No edema - Abdominal General gastrointestinal: soft, non-tender, non-distended, normal bowel sounds - Integumentary Integumentary: Present: clear, warm - Psychiatric Psychiatric: agitated, other (Restless) - Neurologic Neurologic: moves all extremities Results - Labs CBC & Chem 7: 02/27/22 04:12 03/05/22 13:27 Labs: Laboratory Last Values WBC 8.3 K/mm3 (4.5-11.0) 02/27/22 04:12 RBC 4.42 M/mm3 (3.65-5.03) 02/27/22 04:12 Hgb 13.4 gm/dl (11.8-15.2) 02/27/22 04:12 Hct 40.0 % (35.5-45.6) 02/27/22 04:12 MCV 91 fl (84-94) 02/27/22 04:12 MCH 30 pg (28-32) 02/27/22 04:12 MCHC 33 % (32-34) 02/27/22 04:12 RDW 13.3 % (13.2-15.2) 02/27/22 04:12 Plt Count 281 K/mm3 (140-440) 02/27/22 04:12 Lymph % (Auto) 25.8 % (13.4-35.0) 02/27/22 04:12 [place] % (Auto) 11.1 % (0.0-7.3) H 02/27/22 04:12 Eos % (Auto) 4.8 % (0.0-4.3) H 02/27/22 04:12 Baso % (Auto) 0.3 % (0.0-1.8) 02/27/22 04:12 Lymph # (Auto) 2.1 K/mm3 (1.2-5.4) 02/27/22 04:12 [place] # (Auto) 0.9 K/mm3 (0.0-0.8) H 02/27/22 04:12 Eos # (Auto) 0.4 K/mm3 (0.0-0.4) 02/27/22 04:12 Baso # (Auto) 0.0 K/mm3 (0.0-0.1) 02/27/22 04:12 Seg Neutrophils % 58.0 % (40.0-70.0) 02/27/22 04:12 Seg Neutrophils # 4.8 K/mm3 (1.8-7.7) 02/27/22 04:12 Sodium 141 mmol/L (137-145) 03/05/22 13:27 Potassium 4.2 mmol/L (3.6-5.0) 03/05/22 13:27 Chloride 106.2 mmol/L (98-107) 03/05/22 13:27 Carbon Dioxide 27 mmol/L (22-30) 03/05/22 13:27 Anion Gap 12 mmol/L 03/05/22 13:27 BUN 9 mg/dL (9-20) 03/05/22 13:27 Creatinine 0.8 mg/dL (0.8-1.3) 03/05/22 13:27 Estimated GFR > 60 ml/min 03/05/22 13:27 BUN/Creatinine Ratio 11 % 03/05/22 13:27 Glucose 93 mg/dL (75-100) 03/05/22 13:27 POC Glucose 146 mg/dL (70-105) H 03/02/22 02:28 Calcium 9.3 mg/dL (8.4-10.2) 03/05/22 13:27 Magnesium 1.70 mg/dL (1.7-2.3) 02/26/22 20:22 Total Bilirubin 0.30 mg/dL (0.1-1.2) 03/12/22 05:20 Direct Bilirubin < 0.2 mg/dL (0-0.2) 03/12/22 05:20 Indirect Bilirubin 0.1 mg/dL 03/12/22 05:20 AST 63 units/L (5-40) H 03/12/22 05:20 ALT 165 units/L (7-56) H 03/12/22 05:20 Alkaline Phosphatase 99 units/L (35-129) 03/12/22 05:20 Total Creatine Kinase 1576 units/L (55-170) H 03/12/22 05:20 Total Protein 7.5 g/dL (6.3-8.2) 03/12/22 05:20 Albumin 4.4 g/dL (3.9-5) 03/12/22 05:20 Albumin/Globulin Ratio 1.4 % 03/12/22 05:20 Urine Color Yellow (Yellow) 02/26/22 12:19 Urine Turbidity Clear (Clear) 02/26/22 12:19 Urine pH 6.5 (5.0-7.0) 02/26/22 12:19 Ur Specific [place] 1.020 (1.003-1.030) 02/26/22 12:19 Urine Protein <15 mg/dl mg/dL (Negative) 02/26/22 12:19 Urine Glucose (UA) Negative mg/dL (Negative) 02/26/22 12:19 Urine Ketones Negative mg/dL (Negative) 02/26/22 12:19 Urine Blood Negative (Negative) 02/26/22 12:19 Urine Nitrite Negative (Negative) 02/26/22 12:19 Ur Reducing Substances Not Reportable 02/26/22 12:19 Urine Bilirubin Negative (Negative) 02/26/22 12:19 Urine Ictotest Not Reportable 02/26/22 12:19 Urine Urobilinogen < 2.0 mg/dL (<2.0) 02/26/22 12:19 Ur Leukocyte Esterase Negative (Negative) 02/26/22 12:19 Urine WBC (Auto) 3.0 /HPF (0.0-6.0) 02/26/22 12:19 Urine RBC (Auto) 1.0 /HPF (0.0-6.0) 02/26/22 12:19 U Epithel Cells (Auto) < 1.0 /HPF (0-13.0) 02/26/22 12:19 Urine Mucus Few /HPF 02/26/22 12:19 Nasal Screen MRSA (PCR) Negative (Negative) 02/27/22 Unknown Salicylates < 0.3 mg/dL (2.8-20.0) L 02/26/22 17:31 Urine Opiates Screen Negative 02/26/22 12:19 Urine Methadone Screen Negative 02/26/22 12:19 Acetaminophen 5.0 ug/mL (10.0-30.0) L 02/26/22 17:31 Ur Barbiturates Screen Negative 02/26/22 12:19 Ur Phencyclidine Scrn Negative 02/26/22 12:19 Ur Amphetamines Screen Negative 02/26/22 12:19 U Benzodiazepines Scrn Positive 02/26/22 12:19 Urine Cocaine Screen Negative 02/26/22 12:19 U Marijuana (THC) Screen Negative 02/26/22 12:19 Drugs of Abuse Note Disclamer 02/26/22 12:19 Plasma/Serum Alcohol < 0.01 % (0-0.07) 02/26/22 17:28 Coronavirus (PCR) Negative (Negative) 02/27/22 09:30 Vincent/IV: Voiding Method Toilet Active Medications - Current Medications Current Medications: Generic Name Dose Route Start Last Admin Trade Name Freq PRN Reason Stop Dose Admin Acetaminophen 650 mg 02/26/22 22:16 03/01/22 10:23 Acetaminophen 325 Mg Tab PO 650 mg Q4H PRN Administration Pain MILD(1-3)/Fever >100.5/MI Clonazepam 0.5 mg 03/12/22 11:00 03/12/22 15:19 Clonazepam 0.5 Mg Tab PO 03/15/22 06:00 0.5 mg BID LUCILA Administration Divalproex Sodium 500 mg 03/10/22 22:00 03/12/22 09:[address] 500 Mg Tab PO 500 mg BID LUCILA Administration Doxepin HCl 25 mg 03/07/22 22:00 03/11/22 21:10 Doxepin 25 Mg Cap PO 25 mg QHS LUCILA Administration Furosemide 40 mg 03/12/22 08:41 03/12/22 09:37 Furosemide 40 Mg/4 Ml Inj IV 03/12/22 23:00 40 mg ONCE LUCILA Administration Haloperidol Lactate 5 mg 02/27/22 13:50 03/11/22 12:12 Haloperidol Lactate 5 Mg/1 Ml Inj IM 5 mg Q6H PRN Administration Agitation Heparin Sodium (Porcine) 5,000 unit 02/27/22 06:00 03/12/22 15:03 Heparin 5,000 Unit/1 Ml Vial SUB-Q 5,000 unit Q8HR LUCILA Administration Sodium Chloride 1,000 mls @ 100 mls/hr 03/02/22 09:30 03/05/22 09:47 Nacl 0.9% 1000 Ml IV 100 mls/hr DIRECT LUCILA Administration Lorazepam 2 mg 02/27/22 13:51 03/12/22 14:59 Lorazepam 2 Mg/Ml Vial IM 2 mg Q6H PRN Administration Agitation Magnesium Hydroxide 30 ml 02/26/22 22:16 03/01/22 21:30 Magnesium Hydroxide (Mom) Oral Liqd Udc PO 30 ml Q4H PRN Administration Constipation Morphine Sulfate 2 mg 02/26/22 22:16 03/04/22 11:36 Morphine 2 Mg/1 Ml Inj IV 2 mg Q4H PRN Administration Pain, Moderate (4-6) Morphine Sulfate 4 mg 02/26/22 22:16 Morphine 4 Mg/1 Ml Inj IV Q4H PRN Pain , Severe (7-10) Olanzapine 20 mg 03/10/22 12:00 03/12/22 09:37 Olanzapine 10 Mg Tab PO 20 mg QDAY LUCILA Administration Ondansetron HCl 4 mg 02/26/22 22:16 Ondansetron 4 Mg/2 Ml Inj IV Q8H PRN Nausea And Vomiting Sodium Chloride 10 ml 02/27/22 10:00 03/12/22 09:38 Sodium Chloride 0.9% 10 Ml Flush Syringe IV 10 ml BID LUCILA Administration Sodium Chloride 10 ml 02/26/22 22:16 Sodium Chloride 0.9% 10 Ml Flush Syringe IV PRN PRN LINE FLUSH Nutrition/Malnutrition Assess - Dietary Evaluation Nutrition/Malnutrition Findings: Nutrition Notes Start: 03/06/22 19:49 Freq: Status: Active Protocol: Document 03/06/22 19:49 STACY (Rec: 03/06/22 19:55 STACY [email or web address]) Nutrition Notes Need for Assessment generated from: LOS Initial or Follow up Assessment Other Pertinent Diagnosis Psuchosis, Schizophrenia, Rabdomyolysis, Transaminitis. Current Diet Regular Diet (since B 02/27). Labs/Tests 03/05: WNL. Pertinent Medications 03/06: Nutritionally unremarkable. Height 5 ft 8 in Weight 61.2 kg [place] Body Weight (kg) 70.00 BMI 20.5 Intake Prior to Admission Good Weight change and time frame Pt denies having loss body weight RN CARDIAC CATH. Weight Status Appropriate Subjective/Other Information RD consult for LOS assessment. Pt's PO intake of meals has been Good (100%) and well tolerated, according to ADL notes. Pt is on Room Air, O2 saturation @ 98%, according to Physical Assessment History notes. Percent of energy/protein needs met: Prescribed Regular Diet provides for energy/protein needs (2,289 Kcal/89 g) during LOS. Burn Absent Trauma Absent GI Symptoms None Food Allergy No Skin Integrity/Comment Assessment WNL. Current % PO Good (75-100%) Minimum of two criteria No Fluid Accumulation N/A Reduced Director Of Cardiac Cath Lab Strength N/A (non-severe) Protein-Calorie Malnutrition N\A #1 Nutrition Diagnosis No nutrition diagnosis at this time Is patient on ventilator? No Is Patient Ambulatory and/or Out of Bed Yes REE-([place]-St[place] Jeor-ambulatory/OOB) [ 1588.950 NUTR.[id number]] Kcal/Kg value to use for calculation 30 Approximate Energy Requirements Using 1836 kcal/Kg Calculation Used for Recommendations Kcal/kg Additional Notes Protein: 0.8-1 g/Kg ABW; 49-61 g/day. Fluids: 1 ml/Kcal, or as per MD. Nutrition Intervention Change Diet Order: Continue Regular Diet. Revisit per MD consult or patient Sign Off request: Additional Comments Continue monitoring food tolerance, %PO intake of meals , and BM.
[2022-03-12] MEDS: HALOPERIDOL LACTATE 5 MG/1 ML INJ IM PRN (16:00)
--- NOTE | 2022-03-12 19:35 | Event Note ---
Date: 03/12/22 Around 3:45 PM the the pt walked out of his room to back elevator, genesis neil called, security and the staff went to the elevator patient was given Haldol 5 mg and was brought back to the room. Patient was 1013 status with safety advisor 15/03, however he refused to be in the room and wanted to go home saying that he feels better. I tried to convince him security at the bedside, patient insisted on leaving became very combative, placed on four-point restraints, and patient is already on Ativan, Haldol as needed for agitation and psych medications. We will closely monitor the patient and adjust the management as needed. Patient is medically cleared for discharge, psych is trying inpatient psych placement contacting different centers. I requested nursing airport ramp supervisor whether the patient can have a male safety advisor who could effectively manage the patient. She said that there are no male safety sitters available however reported that she would try her best. Unable to contact the patient's family. Patient is 1013 status, in restraints for safety, and on as needed medications for agitation.
[2022-03-12] MEDS: DOXEPIN 25 MG CAP PO SCH (22:58)
[2022-03-13] MEDS: HALOPERIDOL LACTATE 5 MG/1 ML INJ IM PRN (00:37)
[2022-03-13] MEDS: LORazepam 2 MG/ML VIAL IM PRN ×2 (00:54→10:29)
[2022-03-13] MEDS: HEPARIN 5,000 UNIT/1 ML VIAL SUB-Q SCH ×3 (07:31→23:25)
--- NOTE | 2022-03-13 08:50 | Progress Note ---
Assessment and Plan Assessment and Plan Assessment and plan: --Rhabdomyolysis creatinine kinase trending down, CK levels 3700 -3026-7548---1880 Aggressive IV hydration, 250 mL of normal saline fluid bolus in addition to IV fluids 1 dose of IV Lasix, preserved renal function Input output monitoring, plenty of oral fluids Medically stable for discharge disposition per psych. -- LFT trending down; Continue IV hydration, monitor liver function tests Transaminases trending down -- Schizophrenia with psychosis psych following . Continue current management Patient 1013 status per psych --DVT prophylaxis SCD, ambulatory -- Full code status We will closely monitor the patient and adjust the management as needed Plan of care reviewed with the patient and his nurse. Continue to monitor CK levels, LFTs, and continue monitor clinically Patient is still 1013 status, sleeve setter safety stitch at the bedside Patient is not medically stable due to rhabdomyolysis and transaminitis which are not getting better as expected as patient is refusing treatment with IV fluids Subjective Date of service: 03/13/22 Principal diagnosis: Rhabdomyolysis Interval history: 21-year-old -[place]er male with known history of schizophrenia presenting to the emergency room with changes in mental status. Upon arrival in the emergency room he became agitated and was given some sedation. Work-up in the emergency room, labs are significant for elevated creatinine kinase of 2654. Liver enzymes were also slightly elevated. CT scan of the head shows no focal mass, hemorrhage, hydrocephalus or acute large territorial inf arct. Patient has been started on IV fluid normal saline and admitted for further mx. 02/27:Follow CPK level, encourage plenty of fluid intake, sitting at the bedside. Psych following, need inpatient care for psychiatric evaluation. 02/28: CPK remains elevated, cont to follow, iv fluid. patient refusing meds per documentation. need inpt care. with disorganized thoughts, very talkative. cont supportive care. sitter at bedside. 03/01: Patient requiring inpatient psych evaluation and management. Sitter at the bedside. Follow CPK level and wait for psych clearance for discharge. 03/02: CPK remians elevated, pt was agitated this am. psych following. follow CPK and LFT. 03/03; worsening CK and LFTs, increase IV fluids To 50 mL normal saline bolus in addition to IV fluids Preserved renal function 03/04 CK levels trending down today 2338, LFTs trending down 250 mL fluid bolus x1, IV Lasix x1 03/05 CK 1808,LFTs 111/ 209 03/07/2022; patient is refusing IV fluids and medications, rhabdomyolysis not improving Unable to clear medically for inpatient psych placement, discussed with the psych nurse practitioner For four-point restraints and some sedation during the daytime to get therapy 03/08; CK 1982, LFTs 133 and 244 Restraint for safety, 1013 status Continue IV fluids, additional 500 mL normal saline bolus followed by IV Lasix 40 mg Input output monitoring 03/09:CK 1633, AST 158 /ALT 284 Patient is confused agitated psych is following 03/10;[id number], AST 151, ALT 255 03/11/2022 CK1 444, AST ALT trending down Patient feels better no new complaints Medically cleared for discharge Disposition per psych 03/12/2022; CK 1576, LFTs 63/165 Haldol as needed for agitation, psych following Medically cleared for discharge Disposition: per psych 03/13/2022 CKs improving Stable for discharge History Interval history: I have seen and examined the patient at the bedside Patient is more restless and agitated today However not violent or aggressive marine equipment engineer in the room Vital signs noted Objective - Constitutional Vitals: Vital Signs - 12hr 03/12/22 03/13/22 21:28 01:03 Temperature 97.6 F Pulse Rate 113 H Respiratory 18 16 Rate Blood Pressure 120/56 O2 Sat by Pulse 97 98 Oximetry General appearance: Present: no acute distress, well-nourished - EENT Eyes: PERRL, EOM intact ENT: hearing intact, clear oral mucosa Ears: bilateral: normal - Neck Neck: supple, normal ROM - Respiratory Respiratory effort: normal Respiratory: bilateral: CTA - Breasts Breasts: normal - Cardiovascular Heart rate: 78 Rhythm: regular Heart Sounds: Present: S1 & S2. Absent: gallop, rub Extremities: pulses intact, No edema, normal color, Full ROM - Gastrointestinal General gastrointestinal: Present: soft, non-tender, non-distended, normal bowel sounds - Genitourinary Male genitourinary: normal - Integumentary Integumentary: clear, warm, dry - Musculoskeletal Musculoskeletal: 1, strength equal bilaterally - Neurologic Neurologic: moves all extremities - Psychiatric Psychiatric: memory intact, appropriate mood/affect, intact judgment & insight - Labs CBC & Chem 7: 02/27/22 04:12 03/13/22 09:39
[2022-03-13 10:17] LABS: Alanine Aminotransferase 147 units/L (7-56); Albumin 4.3 g/dL (3.9-5); BUN/Creatinine Ratio 18; Blood Urea Nitrogen 14 mg/dL (9-20); Calcium 9.8 mg/dL (8.4-10.2); Hemolysis Index 8
[2022-03-13] MEDS: DIVALPROEX DR 500 MG TAB PO SCH ×2 (10:29→23:22)
[2022-03-13] MEDS: clonazePAM 0.5 MG TAB PO SCH ×2 (10:29→23:22)
--- NOTE | 2022-03-13 15:24 | Progress Note ---
Subjective - Reason for Consult Reason for consult: MHE - Chief Complaint Chief complaint: DATE SEEN: 03/13/22 Patient seen today in good spirit. Patient denies SI/HI/AVH at this time. Sitter states that patient was seen trying to get on the elevator to leave. Patient still observed to be talking to self. Patient waiting on placement at this time. The patient was seen today. He says he's doing well. He is talking to himself, but states he's talking to God. He denies SI/HI. The sitter at bedside says the patient has been hyperactive; pacing, running and talking to himself nonstop. I contacted the patient's sister, Jesusita at [phone] and obtained collateral and gave her progress on the patient. She says the patient was totally normal on up until about three years ago. She says since then, the patient has these psychotic breaks were he starts pacing, hallucinating, not eating, drinking or sleeping. She says the patient does impulsive things jumps in vehicles with people, and sleeps outside when he has these "breaks." She says he is normally admitted into a psychiatric facility for awhile when this happens. She says but the medication they had the patient on was making him "shake like a seizure and drool all the time." Jesusita says the patient has no family in [place]. She says their mother was there but has moved. Please give the sister a call with any updates or concerns. Will continue to recommend inpatient psychiatric inpatient treatment. REVIEW OF SYSTEMS Constitutional: Negative for weight loss ENT: Negative for stridor Respiratory: Negative for cough or hemoptysis All other systems reviewed and are negative MENTAL STATUS EXAMINATION General Appearance and Behavior: Age appropriate, wearing appropriate clothes, cooperative, polite with questioning, good eye contact, pleasant Cooperation: cooperative Psychomotor Behavior: Psychomotor normal Mood: good Affect and affective range: congruent with stated affect Thought Process: Goal directed Thought Content: None Speech: Normal volume, Regular rate and rhythm Suicidal Ideation: Denies Homicidal Ideation: Denies Hallucination: Denies Delusions: None elicited Impulse Control: Normal Insight and Judgment: Normal Memory: Intact Attention:attentive Orientation: Alert and oriented Diagnoses: Schizophrenia Treatment Plan Depakote DR 500mg po BID Olanzapine 20mg po BID Increase Klonopin 0.5mg po BID x 3 days Agree with Lorazepam and Haldol prn orders Medical: per primary Disposition: recommend acute psychiatric inpatient treatment Will follow. Thanks Case staffed with Dr. Barragan Mental Status Exam - Vital signs Last Vital Signs Temp 97.7 F 03/13/22 10:45 Pulse 104 H 03/13/22 10:28 Resp 16 03/13/22 01:03 BP 105/51 03/13/22 10:28 Pulse Ox 99 03/13/22 10:28 Assessment and Plan - Patient Problems (1) Psychosis Current Visit: Yes Status: Acute (2) Schizophrenia Current Visit: Yes Status: Acute
[2022-03-13] MEDS: DOXEPIN 25 MG CAP PO SCH (23:23)
[2022-03-14] MEDS: HALOPERIDOL LACTATE 5 MG/1 ML INJ IM PRN ×3 (04:50→18:16)
[2022-03-14] MEDS: HEPARIN 5,000 UNIT/1 ML VIAL SUB-Q SCH ×3 (05:00→22:13)
--- NOTE | 2022-03-14 07:47 | Progress Note ---
Assessment and Plan Assessment and Plan Assessment and plan: --Rhabdomyolysis creatinine kinase trending down, CK levels 3700 -[id number]---1880--no new labs today IV hydration Input output monitoring, plenty of oral fluids Medically stable for discharge disposition per psych. -- LFT trending down; Continue IV hydration, monitor liver function tests Transaminases trending down -- Schizophrenia with psychosis psych following . Continue current management Patient 1013 status per psych --DVT prophylaxis SCD, ambulatory -- Full code status We will closely monitor the patient and adjust the management as needed Plan of care reviewed with the patient and his nurse. Patient is medically stable Subjective Date of service: 03/14/22 Principal diagnosis: Rhabdomyolysis Interval history: Brief history and Hospital course: 21-year-old -Vietnamese male with known history of schizophrenia presenting to the emergency room with changes in mental status. Upon arrival in the em ergency room he became agitated and was given some sedation. Work-up in the emergency room, labs are significant for elevated creatinine kinase of 2654. Liver enzymes were also slightly elevated. CT scan of the head shows no focal mass, hemorrhage, hydrocephalus or acute large territorial infarct. Patient has been started on IV fluid normal saline and admitted for further mx. 02/27:Follow CPK level, encourage plenty of fluid intake, sitting at the bedside. Psych following, need inpatient care for psychiatric evaluation. 02/28: CPK remains elevated, cont to follow, iv fluid. patient refusing meds per documentation. need inpt care. with disorganized thoughts, very talkative. cont supportive care. sitter at bedside. 03/01: Patient requiring inpatient psych evaluation and management. Sitter at the bedside. Follow CPK level and wait for psych clearance for discharge. 03/02: CPK remians elevated, pt was agitated this am. psych following. follow CPK and LFT. 03/03; worsening CK and LFTs, increase IV fluids To 50 mL normal saline bolus in addition to IV fluids Preserved renal function 03/04 CK levels trending down today 2338, LFTs trending down 250 mL fluid bolus x1, IV Lasix x1 03/05 CK 1808,LFTs 111/ 209 03/07/2022; patient is refusing IV fluids and medications, rhabdomyolysis not improving Unable to clear medically for inpatient psych placement, discussed with the psych nurse practitioner For four-point restraints and some sedation during the daytime to get therapy 03/08; CK 1982, LFTs 133 and 244 Restraint for safety, 1013 status Continue IV fluids, additional 500 mL normal saline bolus followed by IV Lasix 40 mg Input output monitoring 03/09:CK 1633, AST 158 /ALT 284 Patient is confused agitated psych is following 03/10;[id number], AST 151, ALT 255 03/11/2022 CK1 444, AST ALT trending down Patient feels better no new complaints Medically cleared for discharge Disposition per psych 03/12/2022; CK 1576, LFTs 63/165 Haldol as needed for agitation, psych following Medically cleared for discharge Disposition: per psych History Interval history: I have seen and examined the patient at the bedside Patient is more restless and agitated today However not violent or aggressive liability claims manager in the room Vital signs noted Objective - Constitutional Vitals: Vital Signs - 12hr 03/13/22 23:00 Respiratory 17 Rate O2 Sat by Pulse 99 Oximetry General appearance: Present: no acute distress, well-nourished - EENT Eyes: PERRL, EOM intact ENT: hearing intact, clear oral mucosa Ears: bilateral: normal - Neck Neck: supple, normal ROM - Respiratory Respiratory effort: normal Respiratory: bilateral: CTA - Breasts Breasts: normal - Cardiovascular Heart rate: 78 Rhythm: regular Heart Sounds: Present: S1 & S2. Absent: gallop, rub Extremities: pulses intact, No edema, normal color, Full ROM - Gastrointestinal General gastrointestinal: Present: soft, non-tender, non-distended, normal bowel sounds - Genitourinary Male genitourinary: normal - Integumentary Integumentary: clear, warm, dry - Musculoskeletal Musculoskeletal: 1, strength equal bilaterally - Neurologic Neurologic: moves all extremities - Psychiatric Psychiatric: memory intact, appropriate mood/affect, intact judgment & insight - Labs CBC & Chem 7: 02/27/22 04:12 03/13/22 09:39 Labs: Abnormal lab results 03/13/22 03/13/22 Range/Units 09:39 09:39 AST 82 H (5-40) units/L ALT 147 H (7-56) units/L Total Creatine Kinase 1882 H (55-170) units/L
[2022-03-14] MEDS: clonazePAM 0.5 MG TAB PO SCH ×2 (08:59→22:13)
[2022-03-14] MEDS: DIVALPROEX DR 500 MG TAB PO SCH ×2 (08:59→22:12)
[2022-03-14] MEDS: LORazepam 2 MG/ML VIAL IM PRN ×2 (10:53→18:16)
--- NOTE | 2022-03-14 16:00 | Progress Note ---
Subjective - Reason for Consult Reason for consult: MHE - Chief Complaint Chief complaint: DATE SEEN: 03/14/22 Patient seen today. Patient was sleeping, but easily arousable. Patient states that he is good. Per nursing staff pt was given prn this morning for agitation. Patient denies any SI/HI/AVH at this time. 03/13/22 Patient seen today in good spirit. Patient denies SI/HI/AVH at this time. Sitter states that patient was seen trying to get on the elevator to leave. Patient still observed to be talking to self. Patient waiting on placement at this time. The patient was seen today. He says he's doing well. He is talking to himself, but states he's talking to God. He denies SI/HI. The sitter at bedside says the patient has been hyperactive; pacing, running and talking to himself nonstop. I contacted the patient's sister, Jesusita at [phone] and obtained collateral and gave her progress on the patient. She says the patient was totally normal on up until about three years ago. She says since then, the patient has these psychotic breaks were he starts pacing, hallucinating, not eating, drinking or sleeping. She says the patient does impulsive things jumps in vehicles with people, and sleeps outside when he has these "breaks." She says he is normally admitted into a psychiatric facility for awhile when this happens. She says but the medication they had the patient on was making him "shake like a seizure and drool all the time." Jesusita says the patient has no family in [place]. She says their mother was there but has moved. Please give the sister a call with any updates or concerns. Will continue to recommend inpatient psychiatric inpatient treatment. REVIEW OF SYSTEMS Constitutional: Negative for weight loss ENT: Negative for stridor Respiratory: Negative for cough or hemoptysis All other systems reviewed and are negative MENTAL STATUS EXAMINATION General Appearance and Behavior: Age appropriate, wearing appropriate clothes, cooperative, polite with questioning, good eye contact, pleasant Cooperation: cooperative Psychomotor Behavior: Psychomotor normal Mood: good Affect and affective range: congruent with stated affect Thought Process: Goal directed Thought Content: None Speech: Normal volume, Regular rate and rhythm Suicidal Ideation: Denies Homicidal Ideation: Denies Hallucination: Denies Delusions: None elicited Impulse Control: Normal Insight and Judgment: Normal Memory: Intact Attention:attentive Orientation: Alert and oriented Diagnoses: Schizophrenia Treatment Plan Depakote DR 500mg po BID Olanzapine 20mg po BID Increase Klonopin 0.5mg po BID x 3 days Agree with Lorazepam and Haldol prn orders Medical: per primary Disposition: recommend acute psychiatric inpatient treatment Will follow. Thanks Case staffed with Dr. Barragan Mental Status Exam - Vital signs Last Vital Signs Temp 97.4 F L 03/14/22 12:38 Pulse 114 H 03/14/22 12:38 Resp 22 03/14/22 12:38 BP 118/53 03/14/22 12:38 Pulse Ox 98 03/14/22 12:38 Assessment and Plan - Patient Problems (1) Psychosis Current Visit: Yes Status: Acute (2) Schizophrenia Current Visit: Yes Status: Acute
[2022-03-14] MEDS: DOXEPIN 25 MG CAP PO SCH (22:12)
[2022-03-15] MEDS: LORazepam 2 MG/ML VIAL IM PRN ×3 (00:51→18:17)
[2022-03-15] MEDS: HALOPERIDOL LACTATE 5 MG/1 ML INJ IM PRN ×3 (00:51→18:17)
[2022-03-15 05:45] LABS: Basophils % (Auto) 0.6 % (0.0-1.8); Eosinophils # (Auto) 0.3 K/mm3 (0.0-0.4); Eosinophils % (Auto) 3.8 % (0.0-4.3); Hematocrit 39.8 % (35.5-45.6); Hemoglobin 13.2 gm/dl (11.8-15.2); Lymphocytes # (Auto) 1.5 K/mm3 (1.2-5.4); Lymphocytes % (Auto) 22.5 % (13.4-35.0); Mean Corpuscular HGB Conc 33 % (32-34); Mean Corpuscular Volume 93 fl (84-94); Monocytes # (Auto) 0.7 K/mm3 (0.0-0.8); Monocytes % (Auto) 10.6 % (0.0-7.3); Platelet Count 292 K/mm3 (140-440); Red Blood Count 4.31 M/mm3 (3.65-5.03); Red Cell Distribution Width 14.1 % (13.2-15.2)
[2022-03-15 06:03] LABS: Alanine Aminotransferase 176 units/L (7-56); Albumin 4.2 g/dL (3.9-5); BUN/Creatinine Ratio 11; Blood Urea Nitrogen 8 mg/dL (9-20); Calcium 9.5 mg/dL (8.4-10.2); Hemolysis Index 8
[2022-03-15] MEDS: HEPARIN 5,000 UNIT/1 ML VIAL SUB-Q SCH ×3 (06:34→21:45)
[2022-03-15] MEDS: DIVALPROEX DR 500 MG TAB PO SCH ×2 (09:17→21:45)
--- NOTE | 2022-03-15 11:51 | Discharge Summary ---
Providers - Providers Date of Admission: 02/26/22 22:16 Date of discharge: 03/15/22 Attending physician: RM HUNT 02/26/22 17:28 Consult to Mental Health [CONS] Stat Reason For Exam: schizophrenia, found wandering danger to self Primary care physician: PLATE FORMER Hospitalization Condition: Stable Hospital course: Patient is stable for discharge to home Patient also wants to go home No psychosis at her no agitation no suicidal ideation no homicidal ideation. Patient is medically cleared to go home Discussed with mental health air plant engineer and she agrees with discharge. 1013 rescinded. Subjective Date of service: 03/13/22 Principal diagnosis: Rhabdomyolysis Interval history: 21-year-old -Martiniquais male with known history of schizophrenia presenting to the emergency room with changes in mental status. Upon arrival in the emergency room he became agitated and was given some sedation. Work-up in the emergency room, labs are significant for elevated creatinine kinase of 2654. Liver enzymes were also slightly elevated. CT scan of the head shows no focal mass, hemorrhage, hydrocephalus or acute large territorial infarct. Patient has been started on IV fluid normal saline and admitted for further mx. 02/27:Follow CPK level, encourage plenty of fluid intake, sitting at the bedside. Psych following, need inpatient care for psychiatric evaluation. 02/28: CPK remains elevated, cont to follow, iv fluid. patient refusing meds per documentation. need inpt care. with disorganized thoughts, very talkative. cont supportive care. sitter at bedside. 03/01: Patient requiring inpatient psych evaluation and management. Sitter at the bedside. Follow CPK level and wait for psych clearance for discharge. 03/02: CPK remians elevated, pt was agitated this am. psych following. follow CPK and LFT. 03/03; worsening CK and LFTs, increase IV fluids To 50 mL normal saline bolus in addition to IV fluids Preserved renal function 03/04 CK levels trending down today 2338, LFTs trending down 250 mL fluid bolus x1, IV Lasix x1 03/05 CK 1808,LFTs 111/ 209 03/07/2022; patient is refusing IV fluids and medications, rhabdomyolysis not improving Unable to clear medically for inpatient psych placement, discussed with the psych nurse practitioner For four-point restraints and some sedation during the daytime to get therapy 03/08; CK 1982, LFTs 133 and 244 Restraint for safety, 1013 status Continue IV fluids, additional 500 mL normal saline bolus followed by IV Lasix 40 mg Input output monitoring 03/09:CK 1633, AST 158 /ALT 284 Patient is confused agitated psych is following 03/10;[id number], AST 151, ALT 255 03/11/2022 CK1 444, AST ALT trending down Patient feels better no new complaints Medically cleared for discharge Disposition per psych 03/12/2022; CK 1576, LFTs 63/165 Haldol as needed for agitation, psych following Medically cleared for discharge Disposition: per psych 03/13/2022 CKs improving Stable for discharge 03/14/2022 Patient stable for discharge Waiting for mental health clearance 03/15/2022 Discussed with mental health/psychiatry Patient stable for discharge Informed case management about discharge Assessment and Plan Assessment and plan: --Rhabdomyolysis Improved -- Transaminitis Improved -- Schizophrenia with psychosis psych following . Continue current management Patient 1013 status per psych --DVT prophylaxis SCD, ambulatory -- Full code status We will closely monitor the patient and adjust the management as needed Plan of care reviewed with the patient and his nurse. Patient is medically stable for discharge 1013 rescinded Disposition: 01 HOME / SELF CARE / HOMELESS Final Discharge Diagnosis (Prints w/discharge instructions): Rhabdomyolysis. Acute psychosis. Schizophrenia Time spent for discharge: 35 minutes - Discharge Diagnoses (1) Rhabdomyolysis Status: Acute (2) Psychosis Status: Acute (3) Schizophrenia Status: Acute (4) DVT prophylaxis Status: Acute Core Measure Documentation - Palliative Care Palliative Care/ Comfort Measures: Not Applicable - Core Measures Any of the following diagnoses?: none Exam - Constitutional Vitals: Temp Pulse Resp BP Pulse Ox 97.3 F L 103 H 18 121/63 98 03/14/22 20:03 03/14/22 20:03 03/14/22 22:00 03/14/22 20:03 03/15/22 08:12 General appearance: Present: no acute distress, well-nourished - EENT Eyes: Present: PERRL ENT: hearing intact, clear oral mucosa - Neck Neck: Present: supple, normal ROM - Respiratory Respiratory effort: normal Respiratory: bilateral: CTA - Cardiovascular Heart rate: 78 Rhythm: regular Heart Sounds: Present: S1 & S2. Absent: rub, click - Extremities Extremities: pulses symmetrical, No edema Peripheral Pulses: within normal limits - Abdominal General gastrointestinal: Present: soft, non-tender, non-distended, normal bowel sounds Male genitourinary: Present: normal - Rectal Rectal Exam: deferred - Integumentary Integumentary: Present: clear, warm, dry - Musculoskeletal Musculoskeletal: gait normal, strength equal bilaterally - Psychiatric Psychiatric: appropriate mood/affect, intact judgment & insight - Neurologic Neurologic: CNII-XII intact, moves all extremities - Allied Health Allied health notes reviewed: nursing, case management Plan Activity: no restrictions Diet: regular Follow up with: PRIMARY CAREMD [Primary Care Provider] - 3-5 Days AGUSTIN MCCORMICK MD [Referring] - 7 Days
--- NOTE | 2022-03-15 12:27 | Progress Note ---
Subjective - Reason for Consult Reason for consult: MHE - Chief Complaint Chief complaint: Date of service: 03/15/22 Patient seen today. Patient states " do you think i can go home today" Patient states that he feels well. Patient is at his baseline. Patient denies any SI/HI/AVH at this time. Psych will sign off at this time and 1013 rescinded. interior surface insulation worker will be notified per [facility]. DATE SEEN: 03/14/22 Patient seen today. Patient was sleeping, but easily arousable. Patient states that he is good. Per nursing staff pt was given prn this morning for agitation. Patient denies any SI/HI/AVH at this time. 03/13/22 Patient seen today in good spirit. Patient denies SI/HI/AVH at this time. Sitter states that patient was seen trying to get on the elevator to leave. Patient still observed to be talking to self. Patient waiting on placement at this time. The patient was seen today. He says he's doing well. He is talking to himself, but states he's talking to God. He denies SI/HI. The sitter at bedside says the patient has been hyperactive; pacing, running and talking to himself nonstop. I contacted the patient's sister, Jesusita at [phone] and obtained collateral and gave her progress on the patient. She says the patient was totally normal on up until about three years ago. She says since then, the patient has these psychotic breaks were he starts pacing, hallucinating, not eating, drinking or sleeping. She says the patient does impulsive things jumps in vehicles with people, and sleeps outside when he has these "breaks." She says he is normally admitted into a psychiatric facility for awhile when this happens. She says but the medication they had the patient on was making him "shake like a seizure and drool all the time." Jesusita says the patient has no family in [place]. She says their mother was there but has moved. Please give the sister a call with any updates or concerns. Will continue to recommend inpatient psychiatric inpatient treatment. REVIEW OF SYSTEMS Constitutional: Negative for weight loss ENT: Negative for stridor Respiratory: Negative for cough or hemoptysis All other systems reviewed and are negative MENTAL STATUS EXAMINATION General Appearance and Behavior: Age appropriate, wearing appropriate clothes, cooperative, polite with questioning, good eye contact, pleasant Cooperation: cooperative Psychomotor Behavior: Psychomotor normal Mood: good Affect and affective range: congruent with stated affect Thought Process: Goal directed Thought Content: None Speech: Normal volume, Regular rate and rhythm Suicidal Ideation: Denies Homicidal Ideation: Denies Hallucination: Denies Delusions: None elicited Impulse Control: Normal Insight and Judgment: Normal Memory: Intact Attention:attentive Orientation: Alert and oriented Diagnoses: Schizophrenia Treatment Plan Depakote DR 500mg po BID Olanzapine 20mg po BID Increase Klonopin 0.5mg po BID x 3 days Agree with Lorazepam and Haldol prn orders Medical: per primary Disposition: DC 1013 Will sign off. Thanks Case staffed with Dr. Barragan Mental Status Exam - Vital signs Last Vital Signs Temp 97.3 F L 03/14/22 20:03 Pulse 103 H 03/14/22 20:03 Resp 18 03/14/22 22:00 BP 121/63 03/14/22 20:03 Pulse Ox 98 03/15/22 08:12 Assessment and Plan - Patient Problems (1) Psychosis Current Visit: Yes Status: Acute (2) Schizophrenia Current Visit: Yes Status: Acute
[2022-03-15] MEDS: DOXEPIN 25 MG CAP PO SCH (21:45)
--- NOTE | 2022-03-15 23:23 | Progress Note ---
Assessment and Plan Assessment and Plan Assessment and plan: --Rhabdomyolysis creatinine kinase trending down, CK levels 3700 -[id number]---1880--no new labs today IV hydration Input output monitoring, plenty of oral fluids Medically stable for discharge disposition per psych. -- Transaminitis improved -- Schizophrenia with psychosis --1013 revoked --DVT prophylaxis SCD, ambulatory -- Full code status We will closely monitor the patient and adjust the management as needed Plan of care reviewed with the patient and his nurse. Patient is medically stable Discharge orders placed Subjective Date of service: 03/15/22 Principal diagnosis: Rhabdomyolysis Interval history: Brief history and Hospital course: 21-year-old -Canadian male with known history of schizophrenia presenting to the emergency room with changes in mental status. Upon arrival in the emergency room he became agitated and was given some sedation. Work-up in the emergency room, labs are significant for elevated creatinine kinase of 2654. Liver enzymes were also slightly elevated. CT scan of the head shows no focal mass, hemorrhage, hydrocephalus or acute large territorial infarct. Patient has been started on IV fluid normal saline and admitted for further mx. 02/27:Follow CPK level, encourage plenty of fluid intake, sitting at the bedside. Psych following, need inpatient care for psychiatric evaluation. 02/28: CPK remains elevated, cont to follow, iv fluid. patient refusing meds per documentation. need inpt care. with disorganized thoughts, very talkative. cont supportive care. sitter at bedside. 03/01: Patient requiring inpatient psych evaluation and management. Sitter at the bedside. Follow CPK level and wait for psych clearance for discharge. 03/02: CPK remians elevated, pt was agitated this am. psych following. follow CPK and LFT. 03/03; worsening CK and LFTs, increase IV fluids To 50 mL normal saline bolus in addition to IV fluids Preserved renal function 03/04 CK levels trending down today 2338, LFTs trending down 250 mL fluid bolus x1, IV Lasix x1 03/05 CK 1808,LFTs 111/ 209 03/07/2022; patient is refusing IV fluids and medications, rhabdomyolysis not improving Unable to clear medically for inpatient psych placement, discussed with the psych nurse practitioner For four-point restraints and some sedation during the daytime to get therapy 03/08; CK 1982, LFTs 133 and 244 Restraint for safety, 1013 status Continue IV fluids, additional 500 mL normal saline bolus followed by IV Lasix 40 mg Input output monitoring 03/09:CK 1633, AST 158 /ALT 284 Patient is confused agitated psych is following 03/10;[id number], AST 151, ALT 255 03/11/2022 CK1 444, AST ALT trending down Patient feels better no new complaints Medically cleared for discharge Disposition per psych 03/12/2022; CK 1576, LFTs 63/165 Haldol as needed for agitation, psych following Medically cleared for discharge 03/13/2022 Still agitated 03/14/2022 Less agitation 03/15/2022 Stable 1013 revoked Discussed with case management about discharge Discharge orders placed History Interval history: I have seen and examined the patient at the bedside Patient is more restless and agitated today However not violent or aggressive flexible babysitter in the room Vital signs noted Objective - Constitutional Vitals: Vital Signs - 12hr 03/15/22 03/15/22 03/15/22 11:56 16:28 20:37 Temperature 98.1 F 98.1 F Pulse Rate 117 H 108 H Respiratory 16 16 20 Rate Blood Pressure 117/58 147/60 O2 Sat by Pulse 97 96 98 Oximetry 03/15/22 21:38 Temperature 98.2 F Pulse Rate 121 H Respiratory 16 Rate Blood Pressure 119/63 O2 Sat by Pulse 96 Oximetry General appearance: Present: no acute distress, well-nourished - EENT Eyes: PERRL, EOM intact ENT: hearing intact, clear oral mucosa Ears: bilateral: normal - Neck Neck: supple, normal ROM - Respiratory Respiratory effort: normal Respiratory: bilateral: CTA - Breasts Breasts: normal - Cardiovascular Heart rate: 78 Rhythm: regular Heart Sounds: Present: S1 & S2. Absent: gallop, rub Extremities: pulses intact, No edema, normal color, Full ROM - Gastrointestinal General gastrointestinal: Present: soft, non-tender, non-distended, normal bowel sounds - Genitourinary Male genitourinary: normal - Integumentary Integumentary: clear, warm, dry - Musculoskeletal Musculoskeletal: 1, strength equal bilaterally - Neurologic Neurologic: moves all extremities - Psychiatric Psychiatric: memory intact, appropriate mood/affect, intact judgment & insight - Labs CBC & Chem 7: 03/15/22 05:24 03/15/22 05:24 Labs: Abnormal lab results 03/15/22 03/15/22 Range/Units 05:24 05:24 Dewey % (Auto) 10.6 H (0.0-7.3) % BUN 8 L (9-20) mg/dL Creatinine 0.7 L (0.8-1.3) mg/dL Glucose 106 H (75-100) mg/dL AST 116 H (5-40) units/L ALT 176 H (7-56) units/L Total Creatine Kinase 2500 H (55-170) units/L
[2022-03-16] MEDS: LORazepam 2 MG/ML VIAL IM PRN ×2 (01:53→13:08)
[2022-03-16] MEDS: HALOPERIDOL LACTATE 5 MG/1 ML INJ IM PRN ×2 (01:54→13:08)
[2022-03-16] MEDS: HEPARIN 5,000 UNIT/1 ML VIAL SUB-Q SCH ×3 (05:44→22:14)
[2022-03-16] MEDS: DIVALPROEX DR 500 MG TAB PO SCH ×2 (09:02→22:14)
--- NOTE | 2022-03-16 17:29 | Progress Note ---
Assessment and Plan Assessment and Plan Assessment and plan: --Rhabdomyolysis creatinine kinase trending down, CK levels 3700 -[id number]---1880--no new labs today IV hydration Input output monitoring, plenty of oral fluids Medically stable for discharge disposition per psych. -- Transaminitis improved -- Schizophrenia with psychosis --1013 revoked --DVT prophylaxis SCD, ambulatory -- Full code status We will closely monitor the patient and adjust the management as needed Plan of care reviewed with the patient and his nurse. Patient is medically stable Discharge orders placed Subjective Date of service: 03/16/22 Principal diagnosis: Rhabdomyolysis Interval history: Brief history and Hospital course: 21-year-old -Syrian male with known history of schizophrenia presenting to the emergency room with changes in mental status. Upon arrival in the emergency room he became agitated and was given some sedation. Work-up in the emergency room, labs are significant for elevated creatinine kinase of 2654. Liver enzymes were also slightly elevated. CT scan of the head shows no focal mass, hemorrhage, hydrocephalus or acute large territorial infarct. Patient has been started on IV fluid normal saline and admitted for further mx. 02/27:Follow CPK level, encourage plenty of fluid intake, sitting at the bedside. Psych following, need inpatient care for psychiatric evaluation. 02/28: CPK remains elevated, cont to follow, iv fluid. patient refusing meds per documentation. need inpt care. with disorganized thoughts, very talkative. cont supportive care. sitter at bedside. 03/01: Patient requiring inpatient psych evaluation and management. Sitter at the bedside. Follow CPK level and wait for psych clearance for discharge. 03/02: CPK remians elevated, pt was agitated this am. psych following. follow CPK and LFT. 03/03; worsening CK and LFTs, increase IV fluids To 50 mL normal saline bolus in addition to IV fluids Preserved renal function 03/04 CK levels trending down today 2338, LFTs trending down 250 mL fluid bolus x1, IV Lasix x1 03/05 CK 1808,LFTs 111/ 209 03/07/2022; patient is refusing IV fluids and medications, rhabdomyolysis not improving Unable to clear medically for inpatient psych placement, discussed with the psych nurse practitioner For four-point restraints and some sedation during the daytime to get therapy 03/08; CK 1982, LFTs 133 and 244 Restraint for safety, 1013 status Continue IV fluids, additional 500 mL normal saline bolus followed by IV Lasix 40 mg Input output monitoring 03/09:CK 1633, AST 158 /ALT 284 Patient is confused agitated psych is following 03/10;[id number], AST 151, ALT 255 03/11/2022 CK1 444, AST ALT trending down Patient feels better no new complaints Medically cleared for discharge Disposition per psych 03/12/2022; CK 1576, LFTs 63/165 Haldol as needed for agitation, psych following Medically cleared for discharge 03/13/2022 Still agitated 03/14/2022 Less agitation 03/15/2022 Stable 1013 revoked Discussed with case management about discharge Discharge orders placed 03/16/2022 Patient stable for discharge Was agitated in the morning Was given Haldol and followed by Chaka Jackson for logistics about discharge History Interval history: I have seen and examined the patient at the bedside Patient is more restless and agitated today However not violent or 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 Absent: gallop, rub Extremities: pulses intact, No edema, normal color, Full ROM - Gastrointestinal General gastrointestinal: Present: soft, non-tender, non-distended, normal bowel sounds - Genitourinary Male genitourinary: normal - Integumentary Integumentary: clear, warm, dry - Musculoskeletal Musculoskeletal: 1, strength equal bilaterally - Neurologic Neurologic: moves all extremities - Psychiatric Psychiatric: memory intact, appropriate mood/affect, intact judgment & insight - Labs CBC & Chem 7: 03/15/22 05:24 03/15/22 05:24
[2022-03-16] MEDS: DOXEPIN 25 MG CAP PO SCH (22:14)
[2022-03-17] MEDS: HEPARIN 5,000 UNIT/1 ML VIAL SUB-Q SCH ×3 (05:54→23:41)
[2022-03-17] MEDS: DIVALPROEX DR 500 MG TAB PO SCH ×2 (09:07→23:41)
[2022-03-17] MEDS: DOXEPIN 25 MG CAP PO SCH (23:42)
[2022-03-18] MEDS: HEPARIN 5,000 UNIT/1 ML VIAL SUB-Q SCH ×3 (05:56→21:37)
--- NOTE | 2022-03-18 07:37 | Progress Note ---
Assessment and Plan Assessment and Plan Assessment and plan: --Rhabdomyolysis creatinine kinase trending down, CK levels 3700 -[id number]---1880--no new labs today IV hydration Input output monitoring, plenty of oral fluids Medically stable for discharge disposition per psych. -- Transaminitis improved -- Schizophrenia with psychosis --1013 revoked --DVT prophylaxis SCD, ambulatory -- Full code status We will closely monitor the patient and adjust the management as needed Plan of care reviewed with the patient and his nurse. Patient is medically stable Discharge orders placed Subjective Date of service: 03/17/22 Principal diagnosis: Rhabdomyolysis Interval history: Brief history and Hospital course: 21-year-old -Surinamese male with known history of schizophrenia presenting to the emergency room with changes in mental status. Upon arrival in the emergency room he became agitated and was given some sedation. Work-up in the emergency room, labs are significant for elevated creatinine kinase of 2654. Liver enzymes were also slightly elevated. CT scan of the head shows no focal mass, hemorrhage, hydrocephalus or acute large territorial infarct. Patient has been started on IV fluid normal saline and admitted for further mx. 02/27:Follow CPK level, encourage plenty of fluid intake, sitting at the bedside. Psych following, need inpatient care for psychiatric evaluation. 02/28: CPK remains elevated, cont to follow, iv fluid. patient refusing meds per documentation. need inpt care. with disorganized thoughts, very talkative. cont supportive care. sitter at bedside. 03/01: Patient requiring inpatient psych evaluation and management. Sitter at the bedside. Follow CPK level and wait for psych clearance for discharge. 03/02: CPK remians elevated, pt was agitated this am. psych following. follow CPK and LFT. 03/03; worsening CK and LFTs, increase IV fluids To 50 mL normal saline bolus in addition to IV fluids Preserved renal function 03/04 CK levels trending down today 2338, LFTs trending down 250 mL fluid bolus x1, IV Lasix x1 03/05 CK 1808,LFTs 111/ 209 03/07/2022; patient is refusing IV fluids and medications, rhabdomyolysis not improving Unable to clear medically for inpatient psych placement, discussed with the psych nurse practitioner For four-point restraints and some sedation during the daytime to get therapy 03/08; CK 1982, LFTs 133 and 244 Restraint for safety, 1013 status Continue IV fluids, additional 500 mL normal saline bolus followed by IV Lasix 40 mg Input output monitoring 03/09:CK 1633, AST 158 /ALT 284 Patient is confused agitated psych is following 03/10;[id number], AST 151, ALT 255 03/11/2022 CK1 444, AST ALT trending down Patient feels better no new complaints Medically cleared for discharge Disposition per psych 03/12/2022; CK 1576, LFTs 63/165 Haldol as needed for agitation, psych following Medically cleared for discharge 03/13/2022 Still agitated 03/14/2022 Less agitation 03/15/2022 Stable 1013 revoked Discussed with case management about discharge Discharge orders placed 03/16/2022 Patient stable for discharge Was agitated in the morning Was given Haldol and followed by Chaka Jackson for logistics about discharge History Interval history: I have seen and examined the patient at the bedside Patient is more restless and agitated today However not violent or 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 Absent: gallop, rub Extremities: pulses intact, No edema, normal color, Full ROM - Gastrointestinal General gastrointestinal: Present: soft, non-tender, non-distended, normal bowel sounds - Genitourinary Male genitourinary: normal - Integumentary Integumentary: clear, warm, dry - Musculoskeletal Musculoskeletal: 1, strength equal bilaterally - Neurologic Neurologic: moves all extremities - Psychiatric Psychiatric: memory intact, appropriate mood/affect, intact judgment & insight - Labs CBC & Chem 7: 03/15/22 05:24 03/15/22 05:24
[2022-03-18] MEDS: MORPHINE 2 MG/1 ML INJ IV PRN (08:11)
[2022-03-18] MEDS: HALOPERIDOL LACTATE 5 MG/1 ML INJ IM PRN ×2 (08:11→21:38)
[2022-03-18] MEDS: DIVALPROEX DR 500 MG TAB PO SCH ×2 (09:10→21:37)
[2022-03-18] MEDS: DOXEPIN 25 MG CAP PO SCH (21:37)
[2022-03-18] MEDS: ZIPRASIDONE MESYLATE 20 MG VIAL IM PRN (21:38)
[2022-03-19] MEDS: HEPARIN 5,000 UNIT/1 ML VIAL SUB-Q SCH ×3 (05:56→21:45)
--- NOTE | 2022-03-19 08:43 | Progress Note ---
Assessment and Plan Assessment and Plan Assessment and plan: --Rhabdomyolysis creatinine kinase trending down, CK levels 3700 -[id number]---1880--no new labs today IV hydration Input output monitoring, plenty of oral fluids Medically stable for discharge disposition per psych. -- Transaminitis improved -- Schizophrenia with psychosis --1013 revoked --DVT prophylaxis SCD, ambulatory -- Full code status We will closely monitor the patient and adjust the management as needed Plan of care reviewed with the patient and his nurse. Patient is medically stable Discharge orders placed Subjective Date of service: 03/18/22 Principal diagnosis: Rhabdomyolysis Interval history: Brief history and Hospital course: 21-year-old -[place] male with known history of schizophrenia presenting to the emergency room with changes in mental status. Upon arrival in the emergency room he became agitated and was given some sedation. Work-up in the emergency room, labs are significant for elevated creatinine kinase of 2654. Liver enzymes were also slightly elevated. CT scan of the head shows no focal mass, hemorrhage, hydrocephalus or acute large territorial infarct. Patient has been started on IV fluid normal saline and admitted for further mx. 02/27:Follow CPK level, encourage plenty of fluid intake, sitting at the bedside. Psych following, need inpatient care for psychiatric evaluation. 02/28: CPK remains elevated, cont to follow, iv fluid. patient refusing meds per documentation. need inpt care. with disorganized thoughts, very talkative. cont supportive care. sitter at bedside. 03/01: Patient requiring inpatient psych evaluation and management. Sitter at the bedside. Follow CPK level and wait for psych clearance for discharge. 03/02: CPK remians elevated, pt was agitated this am. psych following. follow CPK and LFT. 03/03; worsening CK and LFTs, increase IV fluids To 50 mL normal saline bolus in addition to IV fluids Preserved renal function 03/04 CK levels trending down today 2338, LFTs trending down 250 mL fluid bolus x1, IV Lasix x1 03/05 CK 1808,LFTs 111/ 209 03/07/2022; patient is refusing IV fluids and medications, rhabdomyolysis not improving Unable to clear medically for inpatient psych placement, discussed with the psych nurse practitioner For four-point restraints and some sedation during the daytime to get therapy 03/08; CK 1982, LFTs 133 and 244 Restraint for safety, 1013 status Continue IV fluids, additional 500 mL normal saline bolus followed by IV Lasix 40 mg Input output monitoring 03/09:CK 1633, AST 158 /ALT 284 Patient is confused agitated psych is following 03/10;[id number], AST 151, ALT 255 03/11/2022 CK1 444, AST ALT trending down Patient feels better no new complaints Medically cleared for discharge Disposition per psych 03/12/2022; CK 1576, LFTs 63/165 Haldol as needed for agitation, psych following Medically cleared for discharge 03/13/2022 Still agitated 03/14/2022 Less agitation 03/15/2022 Stable 1013 revoked Discussed with case management about discharge Discharge orders placed 03/16/2022 Patient stable for discharge Was agitated in the morning Was given Haldol and followed by Chaka Waiting for logistics about discharge 03/17/2022 through 03/18/2022 Waiting for discharge Stable otherwise History Interval history: I have seen and examined the patient at the bedside Patient is more restless and agitated today However not violent 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 Vital signs noted Objective - Constitutional Vitals: Vital Signs - 12hr 03/18/22 03/18/22 03/19/22 22:00 22:12 05:16 Temperature 97.6 F 97.6 F Pulse Rate 99 H 97 H Respiratory 18 20 18 Rate Blood Pressure 142/76 140/58 [Left] O2 Sat by Pulse 100 97 98 Oximetry General appearance: Present: no acute distress, well-nourished - EENT Eyes: PERRL, EOM intact ENT: hearing intact, clear oral mucosa Ears: bilateral: normal - Neck Neck: supple, normal ROM - Respiratory Respiratory effort: normal Respiratory: bilateral: CTA - Breasts Breasts: normal - Cardiovascular Heart rate: 76 Rhythm: regular Heart Sounds: Present: S1 & S2. Absent: gallop, rub Extremities: pulses intact, No edema, normal color, Full ROM - Gastrointestinal General gastrointestinal: Present: soft, non-tender, non-distended, normal bowel sounds - Genitourinary Male genitourinary: normal - Integumentary Integumentary: clear, warm, dry - Musculoskeletal Musculoskeletal: 1, strength equal bilaterally - Neurologic Neurologic: moves all extremities - Psychiatric Psychiatric: memory intact, appropriate mood/affect, intact judgment & insight - Labs CBC & Chem 7: 03/15/22 05:24 03/15/22 05:24
[2022-03-19] MEDS: HALOPERIDOL LACTATE 5 MG/1 ML INJ IM PRN ×2 (09:16→19:54)
[2022-03-19] MEDS: DIVALPROEX DR 500 MG TAB PO SCH ×2 (09:16→21:44)
[2022-03-19 18:19] VITALS: BP 121/65
[2022-03-19] MEDS: ZIPRASIDONE MESYLATE 20 MG VIAL IM PRN (19:54)
--- NOTE | 2022-03-19 20:16 | Discharge Summary ---
Providers - Providers Date of Admission: 02/26/22 22:16 Date of discharge: 03/19/22 Attending physician: RM HUNT 02/26/22 17:28 Consult to Mental Health [CONS] Stat Reason For Exam: schizophrenia, found wandering danger to self Primary care physician: ADJUSTER ARBITRATOR Hospitalization Condition: Stable Hospital course: Hospitalization Condition: Stable Hospital course: Patient is stable for discharge to home Patient also wants to go home No psychosis at her no agitation no suicidal ideation no homicidal ideation. Patient is medically cleared to go home Discussed with mental health inorganic chemist and she agrees with discharge. 1013 rescinded. Subjective Date of service: 03/13/22 Principal diagnosis: Rhabdomyolysis Interval history: 21-year-old -Swazi male with known history of schizophrenia presenting to the emergency room with changes in mental status. Upon arrival in the emergency room he became agitated and was given some sedation. Work-up in the emergency room, labs are significant for elevated creatinine kinase of 2654. Liver enzymes were also slightly elevated. CT scan of the head shows no focal mass, hemorrhage, hydrocephalus or acute large territorial infarct. Patient has been started on IV fluid normal saline and admitted for further mx. 02/27:Follow CPK level, encourage plenty of fluid intake, sitting at the bedside. Psych following, need inpatient care for psychiatric evaluation. 02/28: CPK remains elevated, cont to follow, iv fluid. patient refusing meds per documentation. need inpt care. with disorganized thoughts, very talkative. cont supportive care. sitter at bedside. 03/01: Patient requiring inpatient psych evaluation and management. Sitter at the bedside. Follow CPK level and wait for psych clearance for discharge. 03/02: CPK remians elevated, pt was agitated this am. psych following. follow CPK and LFT. 03/03; worsening CK and LFTs, increase IV fluids To 50 mL normal saline bolus in addition to IV fluids Preserved renal function 03/04 CK levels trending down today 2338, LFTs trending down 250 mL fluid bolus x1, IV Lasix x1 03/05 CK 1808,LFTs 111/ 209 03/07/2022; patient is refusing IV fluids and medications, rhabdomyolysis not improving Unable to clear medically for inpatient psych placement, discussed with the psych nurse practitioner For four-point restraints and some sedation during the daytime to get therapy 03/08; CK 1982, LFTs 133 and 244 Restraint for safety, 1013 status Continue IV fluids, additional 500 mL normal saline bolus followed by IV Lasix 40 mg Input output monitoring 03/09:CK 1633, AST 158 /ALT 284 Patient is confused agitated psych is following 03/10;[id number], AST 151, ALT 255 03/11/2022 CK1 444, AST ALT trending down Patient feels better no new complaints Medically cleared for discharge Disposition per psych 03/12/2022; CK 1576, LFTs 63/165 Haldol as needed for agitation, psych following Medically cleared for discharge Disposition: per psych 03/13/2022 CKs improving Stable for discharge 03/14/2022 Patient stable for discharge Waiting for mental health clearance 03/15/2022 Discussed with mental health/psychiatry Patient stable for discharge Informed case management about discharge 03/16/2022 through 03/19/2022 Patient has been stable for discharge Lefty's Aunt is coming from [place] daily to pick him up and take him back to [place] Patient is not agitated or psychotic. Stable for discharge. Assessment and Plan Assessment and plan: --Rhabdomyolysis Improved -- Transaminitis Improved -- Schizophrenia with psychosis psych following . Continue current management Patient 1013 status per psych --DVT prophylaxis SCD, ambulatory -- Full code status We will closely monitor the patient and adjust the management as needed Plan of care reviewed with the patient and his nurse. Patient is medically stable for discharge 1013 rescinded Disposition: 01 HOME / SELF CARE / HOMELESS Final Discharge Diagnosis (Prints w/discharge instructions): Rhabdomyolysis. Acute psychosis. Schizophrenia Time spent for discharge: 35 minutes Disposition: 01 HOME / SELF CARE / HOMELESS Final Discharge Diagnosis (Prints w/discharge instructions): Rhabdomyolysis. Transaminitis. Schizophrenia. Acute psychosis Time spent for discharge: 32 minutes - Discharge Diagnoses (1) Rhabdomyolysis Status: Acute Qualifiers: Rhabdomyolysis type: non-traumatic Qualified Code(s): M62.82 - Rhabdomyolysis Comment: Resolved (2) Transaminitis Status: Acute Comment: Resolved (3) Acute psychosis Status: Acute Comment: In remission Core Measure Documentation - Palliative Care Palliative Care/ Comfort Measures: Not Applicable - Core Measures Any of the following diagnoses?: none Exam - Constitutional Vitals: Temp Pulse Resp BP Pulse Ox 97.4 F L 101 H 18 121/65 97 03/19/22 17:31 03/19/22 17:31 03/19/22 17:31 03/19/22 17:31 03/19/22 17:31 General appearance: Present: no acute distress, well-nourished - EENT Eyes: Present: PERRL ENT: hearing intact, clear oral mucosa - Neck Neck: Present: supple, normal ROM - Respiratory Respiratory effort: normal Respiratory: bilateral: CTA - Cardiovascular Heart rate: 78 Rhythm: regular Heart Sounds: Present: S1 & S2. Absent: rub, click - Extremities Extremities: pulses symmetrical, No edema Peripheral Pulses: within normal limits - Abdominal General gastrointestinal: Present: soft, non-tender, non-distended, normal bowel sounds Male genitourinary: Present: normal - Integumentary Integumentary: Present: clear, warm, dry - Musculoskeletal Musculoskeletal: gait normal, strength equal bilaterally - Psychiatric Psychiatric: appropriate mood/affect, intact judgment & insight, depressed - Neurologic Neurologic: CNII-XII intact, moves all extremities Plan Activity: no restrictions Diet: regular Follow up with: AGUSTIN MCCORMICK MD [Referring] - 7 Days PRIMARY CARE, [Primary Care Provider] - 3-5 Days Prescriptions: Divalproex [Depakote ] 500 mg PO BID #60 tablet Doxepin [SINEquan] 25 mg PO QHS #30 capsule OLANZapine [Zyprexa Zydis] 20 mg PO QDAY 30 Days #30
[2022-03-19] MEDS: DOXEPIN 25 MG CAP PO SCH (21:44)
== END 2022-03-20 05:00 | disposition home or self-care (01) | DRG 558 ==
LOC: ED 16:05 → 3A 22:16
PROVIDERS: ADMIT Internal Medicine Geriatric Medicine; ATTEND Internal Medicine
DX: M62.82 Rhabdomyolysis (principal); R74.01 Elevation of levels of liver transaminase levels; F20.89 Other schizophrenia; F28 Other psychotic disorder not due to a substance or known physiological condition; Z20.822 Contact with and (suspected) exposure to COVID-19; Z59.00 Homelessness unspecified
CPT/HCPCS: 36415; 70450; 80048; 80053; 80076; 80307; 80320; 81001; 82550; 82962; 83735; 85025; 87641; G0378; G0480; J1200; J1630; J1644; J1940; J2060; J2250; J2270; J3486; J7030; J7040; J7050; U0003